=== PATIENT | male | born 1945 | race African-American/Black ===

== ENCOUNTER 2020-09-13 21:38 | Observation (INO) | payer MEDICARE, OTHER, SELFPAY ==
--- NOTE | ~2020-09-13 | XR_ITS ---
EXAMINATION: XR abdomen/kub 1V DATE: 09/14/2020 08:28 INDICATION: Right ureteral stone. TECHNIQUE: A supine view of the abdomen was obtained. COMPARISON: CT abdomen and pelvis 09/14/2020 FINDINGS: There are no dilated loops of bowel. There is contrast in the bladder. There is a 6 x 7 mm stone in proximal right ureter. IMPRESSION: 1. 6 x 7 mm stone in proximal right ureter. Reviewed, dictated and finalized at location A.
--- NOTE | ~2020-09-13 | XR_ITS ---
EXAMINATION: XR abdomen/kub 1V EXAM DATE: 09/15/2020 10:06 INDICATION: Right ureteral stone position TECHNIQUE: Frontal projection(s) of the abdomen for interpretation. Comparison is made to prior exami nation from 09/14/2020. FINDINGS: There is 7 mm density projecting over the expected location of the right ureter proximally, unchanged. Moderate to large amount of bowel stool and gas. No small bowel obstruction. Some bony de generative changes. There is no organomegaly. IMPRESSION: Right proximal ureteral stone. Moderate to large colonic stool and gas. Reviewed, dictated and finalized at location A.
--- NOTE | ~2020-09-13 | CT_ITS ---
EXAMINATION: CT abdomen pelvis w con DATE: 09/14/2020 00:49 INDICATION: Abdominal pain TECHNIQUE: Computed tomography (CT) of the abdomen and pelvis was performed with 100 cc Omnipaque 350 intravenous contrast. Automated exposure control and iterative reconstruction technique were employe d. Exam dose: 926.46 mGy-cm total exam DLP. COMPARISON: None. FINDINGS: Normal heart size. No pericardial or pleural effusion. The lung bases are clear of consolid ation. Minimal bilateral gynecomastia. The liver, gallbladder, bile ducts, spleen, pancreas and pancreatic duct are unremarkable. Normal left adrenal gland. 13 mm probable right lateral limb adrenal adenoma. 7.2 x 6.1 x 9.2 mm proximal right ureteral calculus with mild right hydronephrosis. No renal mass lesion is noted on either side. No other urinary tract calculus. No left hydroureterone phrosis. There is moderate thickening of the wall urinary bladder and prostate enlargement. Normal caliber and mild calcification of the abdominal aorta. No intraperitoneal or retroperitoneal o r pelvic mass lesion or adenopathy or ascites. There is thickening of the wall of the antrum of the stomach and first portion of the duodenum, raisi ng possibility of gastritis/duodenitis. Normal appendix is situated at the proximal aspect of a small right inguinal hernia. No bowel obstruc tion, bowel wall thickening, pneumatosis or intraperitoneal free air is detected. Prominent Schmorl's nodes at L4 and L5. Severe degenerative disc disease at L5-S1. Osteopenia. IMPRESSION: Approximately 9 mm proximal right ureteral calculus with mild right hydronephrosis Thickening of the wall of the gastric antrum and proximal duodenum, raising possibility of gastritis/ duodenitis Reviewed, dictated and finalized at Location A. Reviewed, dictated and finalized at location A. IMPRESSION: Approximately 9 mm proximal right ureteral calculus with mild righ t hydronephrosis Thickening of the wall of the gastric antrum and proximal duodenum, raising pos sibility of gastritis/duodenitis
[2020-09-13 22:11] VITALS: BP 99/61; PULSE 78; RESP 20; TEMP 36.5; O2SAT 99
[2020-09-13 22:24] LABS: Basophils Percent Auto 0.3 % (0.2-1.2); Eosinophils Percent Auto 0.1 % (0-4.4); Hematocrit 42.7 % (42.0-52.0); Hemoglobin 14.6 g/dL (14.0-18.0); Immature Granulocyte Absolute 0.01 K/mm3 (0.00-0.031); Immature Granulocyte Percent A 0.1 % (0-0.5); Immature Platelet Fraction Pct 2.7 % (0.9-11.2); Lymphocytes Absolute Auto 0.97 K/mm3 (0.9-3.2); Lymphocytes Percent Auto 13.9 % (18.3-44.2); Mean Corpuscular HGB Conc 34.2 g/dl (32-36); Mean Corpuscular Hemoglobin 31.9 pg (26-34); Mean Corpuscular Volume 93.2 fl (80-100); Mean Platelet Volume 10.3 fl (7.4-10.4); Monocytes Absolute Auto 0.5 K/mm3 (0.1-0.6); Monocytes Percent Auto 7.4 % (2.6-8.5); Neutrophils Absolute Auto 5.5 K/mm3 (1.3-6.7); Neutrophils Percent Auto 78.2 % (45.5-73.1); Platelet Count Result 152 k/mm3 (150-375); Red Blood Count 4.58 M/mm3 (4.6-6.20); Red Cell Distribution Width 13.6 % (11.5-14.5)
[2020-09-13 22:31] LABS: Alanine Aminotransferase 23 U/L (4-50); Albumin Level 4.6 g/dL (3.5-5.1); Alkaline Phosphatase 161 U/L (38-126); Anion Gap 10 mmol/L (8-16); Aspartate Amino Transferase 32 U/L (17-59); Bilirubin,Total 0.9 mg/dL (0.2-1.3); Blood Urea Nitrogen 16 mg/dL (9-20); Calcium 9.6 mg/dL (8.4-10.2); Carbon Dioxide 22 mmol/L (22-30); Chloride 108 mmol/L (98-107); Estimated CRCL calculation 53 ml/min; Estimated Glomerular Filt Rate 54; Glucose 144 mg/dL (75-110); Lipase 54 U/L (23-300); Potassium 3.8 mmol/L (3.4-5.0); Sodium 140 mmol/L (137-145)
[2020-09-14] VITALS (9 sets, daily range): BP systolic 144–175; BP diastolic 82–99; PULSE 78–95; RESP 16–18; TEMP 36.1–36.7; O2SAT 97–100; BMI 26.7
[2020-09-14] MEDS: SODIUM CHLORIDE 0.9% IV 1,000 ML 150 ML IV CONT (01:11)
[2020-09-14] MEDS: MORPHINE SULFATE (*CRX) 4 MG/ML INJ IV PUSH ×2 (01:11→02:07)
[2020-09-14] MEDS: ONDANSETRON INJ 4 MG/2 ML VIAL IV PUSH (01:12)
[2020-09-14 01:13] LABS: Add Urine Microscopic? YES; Appearance Urine Cloudy (Clear); Bilirubin Urine Negative (Negative); Blood Urine 2+ (Negative); Color Urine Yellow (Yellow); Glucose Urine UA Negative (Negative); Ketones Urine 1+ mg/dL (Negative); Leukocyte Esterase Ur Negative LEU/UL (Negative); Mucus Urine Few /lpf; Nitrate Urine Negative (Negative); Protein Urine 1+ mg/dL (Negative); RBC Urine >75 /hpf (0-2); Specific Grav Ur 1.023 (1.001-1.035); Squamous Epithelial Cell Urine Rare /hpf (Few)
--- NOTE | 2020-09-14 01:33 | ED.ABDPAIN ---
HPI - Abdominal Pain General Chief Complaint: Abdominal Pain <Jonathan Lee MD - Last Filed: 09/14/20 01:47> Stated Complaint: abd/back pain, vomiting <Jonathan Lee MD - Last Filed: 09/14/20 01:47> Time Seen by Provider: 09/13/20 23:51 <Jonathan Lee MD - Last Filed: 09/14/20 01:47> Source: patient and family <Jonathan Lee MD - Last Filed: 09/14/20 01:47> Mode of arrival: ambulatory <MD Daniel Ndiaye Last Filed: 09/14/20 01:47> Limitations: no limitations <Jonathan Lee MD - Last Filed: 09/14/20 01:47> History of Present Illness HPI narrative: 74-year-old with a history of hypertension here with complaints of right lower back pain radiating into his lower abdomen since last few hours. Patient states that pain started soon after he ate supper. Denies any nausea, vomiting. However he reports he has some blood in the urine. Denies any previous history of any kidney stones or kidney infection. <Jonathan Lee MD - Last Filed: 09/14/20 01:47> MD elicited complaint: abdominal pain <Jonathan Lee MD - Last Filed: 09/14/20 01:47> Pertinent past history: none <Jonathan Lee MD - Last Filed: 09/14/20 01:47> Onset (ago): hour(s) (3) <Jonathan Lee MD - Last Filed: 09/14/20 01:47> Pain Consistency: constant <MD Daniel Ndiaye Last Filed: 09/14/20 01:47> Location: R flank <MD Daniel Ndiaye Last Filed: 09/14/20 01:47> Severity: moderate <MD Daniel Ndiaye Last Filed: 09/14/20 01:47> Quality: aching <MD Daniel Ndiaye Last Filed: 09/14/20 01:47> Radiation: LLQ, RLQ and suprapubic <MD Daniel Ndiaye Last Filed: 09/14/20 01:47> Migration to: R flank <Jonathan Lee MD - Last Filed: 09/14/20 01:47> Exacerbating factors: nothing <Jonathan Lee MD - Last Filed: 09/14/20 01:47> Relieving factors: nothing <Jonathan Lee MD - Last Filed: 09/14/20 01:47> Related Data Allergies/Adverse Reactions: Allergies Allergy/AdvReac Type Severity Reaction Status Date / Time No Known Allergies Allergy Verified 09/14/20 00:04 <Jonathan Lee MD - Last Filed: 09/14/20 01:47> Review of Systems Review of Systems: All systems reviewed & are unremarkable except as noted in HPI and below <Jonathan Lee MD - Last Filed: 09/14/20 01:47> Constitutional: Constitutional: Reports no additional constitutional complaints <Jonathan Lee MD - Last Filed: 09/14/20 01:47> Eyes: Eyes: Reports no additional eye complaints <Jonathan Lee MD - Last Filed: 09/14/20 01:47> ENT: Reports system reviewed and no additional complaints, except as documented <Jonathan Lee MD - Last Filed: 09/14/20 01:47> Cardiovascular: Cardiovascular: Reports no additional cardiovascular complaints <Jonathan Lee MD - Last Filed: 09/14/20 01:47> Respiratory: Respiratory: Reports no additional respiratory complaints <Jonathan Lee MD - Last Filed: 09/14/20 01:47> Gastrointestinal: Gastrointestinal: Reports as per HPI <Jonathan Lee MD - Last Filed: 09/14/20 01:47> Genitourinary: Genitourinary: Reports hematuria and Reports flank pain (right) <Jonathan Lee MD - Last Filed: 09/14/20 01:47> PMFSH Surgical History Surgical History: Surgical History (Updated 09/14/20 @ 01:39 by Jonathan Lee MD) H/O foot surgery <Jonathan Lee MD - Last Filed: 09/14/20 01:47> Exam Narrative: Exam Narrative: GENERAL: Well-appearing, well-nourished, and in mild distress sec to pain. HEAD: Normocephalic, atraumatic. EYES: PERRLA and EOMI. NECK: Supple. CHEST: Clear to auscultation. No respiratory distress. HEART: Regular rate and rhythm. No murmur heard. Normal peripheral pulses. ABDOMEN: Soft, nontender, nondistended, normal active bowel sounds. EXTREMITIES: Normal range of motion. No edema. SKIN: Warm, dry, no rash. NEURO: No focal deficits. Alert and oriented x3. PSYCH: Normal mood and affect.
[2020-09-14] MEDS: SODIUM CHLORIDE 0.9% IV 1,000 ML 125 ML IV CONT ×3 (03:57→20:15)
[2020-09-14] MEDS: HYDROmorphone HCL INJ (*CRX) 1 MG/ML SYR 0.5 MG IV PUSH ×3 (04:01→20:12)
--- NOTE | 2020-09-14 06:49 | PM.IMHP ---
H&P: HPI History of Present Illness Date/Time: 09/14/20 06:49 Patient is a 74-year-old without prior history of urolithiasis, or other urological problems, presents to the ER with several week history intermittent, progressively severe right flank pain. Initially attributed this to a bad mattress because of the severity of pain presented for further evaluation. CT imaging demonstrates a 9 mm obstructing right proximal ureteral stone. He denies fevers chills gross hematuria or nausea vomiting Chief Complaint: Right flank pain Review of Systems Cardiovascular: Cardiovascular: Denies chest pain, Denies lightheadedness, Denies palpitations and Denies dyspnea Respiratory: Respiratory: Denies dyspnea Gastrointestinal: Gastrointestinal: Denies diarrhea, Denies nausea and Denies vomiting Genitourinary: Genitourinary: Denies hematuria and Denies dysuria Endocrine: Endocrine: Denies palpitations [facility] Surgical History Surgical History H/O foot surgery Family History Family History Sibling Hypertension Alzheimer disease Lung cancer Mother Heart attack Father Heart attack Parkinson disease Social History Social History Smoking status: Never smoker Alcohol intake: never Substance use: never Gender identity (if verbalized by the patient): Male Spiritual care concerns: No Meds Home Medications and Allergies Allergies Allergy/AdvReac Type Severity Reaction Status Date / Time No Known Allergies Allergy Verified 09/14/20 00:04 Vital Signs Vital Signs - 24 hr 09/13/20 22:11 09/14/20 00:05 09/14/20 01:15 Temperature 97.7 F 98.1 F Pulse Rate 78 78 80 Respiratory Rate 20 18 Blood Pressure 99/61 L 170/99 H 152/93 H Pulse Oximetry 99 100 09/14/20 01:20 09/14/20 01:29 09/14/20 03:35 Temperature 96.9 F L Pulse Rate 87 87 86 Respiratory Rate 18 18 Blood Pressure 155/95 H 155/95 H 175/94 H Pulse Oximetry 100 100 09/14/20 06:00 Temperature 97.6 F Pulse Rate 86 Respiratory Rate 16 Blood Pressure 146/90 H Pulse Oximetry 97 Exam Const: General: no acute distress Resp: Effort & Inspection: normal respiratory effort GI: Inspection: non-distended GI Palp: No abdominal tenderness and No Guarding due to palpation present (GI) Auscultation: normal bowel sounds H&P: Results Labs Labs: Short CBC 09/13/20 Range/Units 22:16 WBC 7.0 (4.5-10.0) K/mm3 Hgb 14.6 (14.0-18.0) g/dL Hct 42.7 (42.0-52.0) % Plt Count 152 (150-375) k/mm3 BMP 09/13/20 22:16 Sodium 140 Potassium 3.8 Chloride 108 H Carbon Dioxide 22 BUN 16 Creatinine 1.30 Glucose 144 H Calcium 9.6 Liver Function 09/13/20 Range/Units 22:16 Total Bilirubin 0.9 (0.2-1.3) mg/dL AST 32 (17-59) U/L ALT 23 (4-50) U/L Alkaline Phosphatase 161 H (38-126) U/L Albumin 4.6 (3.5-5.1) g/dL Urine 09/14/20 Range/Units 00:08 Urine Color Yellow (Yellow) Urine Appearance Cloudy H (Clear) Urine pH 6.0 (5.0-9.0) Ur Specific [place] 1.023 (1.001-1.035) Urine Protein 1+ H (Negative) mg/dL Urine Glucose (UA) Negative (Negative) mg/dL Assessment and Plan Assessment and plan (1) Ureterolithiasis: Code(s): N20.1 - Calculus of ureter Status: Acute (2) HTN (hypertension), benign: Code(s): I10 - Essential (primary) hypertension Status: Acute Assessment and Plan: Options for his large right proximal ureteral stone include either cystoscopy with ureteral stent placement today and ESWL down the road or in situ ESWL tomorrow. He has elected for the latter. Aware of the risk of this procedure including, but not limited to, adverse cardiopulmonary events, failure to fracture the stone with ongoing pain, injury to his right kidney. I
[2020-09-14] MEDS: TAMSULOSIN HCL 0.4 MG CAPSULE PO (09:22)
[2020-09-15] MEDS: HYDROmorphone HCL INJ (*CRX) 1 MG/ML SYR 0.5 MG IV PUSH (02:20)
[2020-09-15] MEDS: SODIUM CHLORIDE 0.9% IV 1,000 ML 125 ML IV CONT (02:22)
[2020-09-15 06:00] VITALS: BP 167/98; PULSE 93; RESP 20; TEMP 36.4; O2SAT 99
[2020-09-15 06:47] LABS: Basophils Percent Auto 0.1 % (0.2-1.2); Hematocrit 42.7 % (42.0-52.0); Hemoglobin 14.5 g/dL (14.0-18.0); Immature Granulocyte Absolute 0.05 K/mm3 (0.00-0.031); Immature Granulocyte Percent A 0.5 % (0-0.5); Lymphocytes Absolute Auto 1.51 K/mm3 (0.9-3.2); Lymphocytes Percent Auto 14.2 % (18.3-44.2); Mean Corpuscular Hemoglobin 31.7 pg (26-34); Mean Corpuscular Volume 93.2 fl (80-100); Mean Platelet Volume 10.9 fl (7.4-10.4); Monocytes Absolute Auto 0.9 K/mm3 (0.1-0.6); Monocytes Percent Auto 8.9 % (2.6-8.5); Neutrophils Absolute Auto 8.1 K/mm3 (1.3-6.7); Neutrophils Percent Auto 76.3 % (45.5-73.1); Platelet Count Result 128 k/mm3 (150-375); Red Blood Count 4.58 M/mm3 (4.6-6.20); Red Cell Distribution Width 13.4 % (11.5-14.5); White Blood Count 10.6 K/mm3 (4.5-10.0)
[2020-09-15 06:58] LABS: Anion Gap 8 mmol/L (8-16); Blood Urea Nitrogen 15 mg/dL (9-20); Calcium 8.9 mg/dL (8.4-10.2); Carbon Dioxide 23 mmol/L (22-30); Chloride 108 mmol/L (98-107); Estimated CRCL calculation 51 ml/min; Estimated Glomerular Filt Rate 60; Glucose 117 mg/dL (75-110); Potassium 3.9 mmol/L (3.4-5.0); Sodium 139 mmol/L (137-145)
--- NOTE | 2020-09-15 11:58 | P.DS_ITS ---
DS: Admitting Diagnosis Admitting Diagnosis Admitting Diagnosis: Right ureteral stone DS: Discharge Diagnosis Discharge Diagnosis (1) HTN (hypertension), benign: Code(s): I10 - Essential (primary) hypertension Status: Acute (2) Ureterolithiasis: Code(s): N20.1 - Calculus of ureter Status: Acute DS: Summary Hospital Course Hospital Course: This pleasant gentleman was admitted with right flank pain and imaging showing a 7 the 9 mm right proximal ureteral calculus. We initially planned to do in situ lithotripsy been on the morning of the anticipated procedure the equipment malfunction. He was discharged with plans to follow-up later that day in for lithotripsy an outpatient surgery center. He was afebrile and had intermittent mild pain throughout admission. Time Spent with Patient Time attestation: Total time spent providing and/or coordinating discharge services: Exam Const: General: no acute distress Resp: Effort & Inspection: normal respiratory effort GI: Inspection: non-distended GI Palp: No abdominal tenderness and No Guarding due to palpation present (GI) Auscultation: normal bowel sounds DS: Data Data Completed and Pending Labs on day of discharge: Labs from last 24 hours 09/15/20 09/15/20 05:49 05:49 WBC 10.6 H RBC 4.58 L Hgb 14.5 Hct 42.7 MCV 93.2 MCH 31.7 MCHC 34.0 RDW 13.4 Plt Count 128 L MPV 10.9 H Immature Gran % (Auto) 0.5 Neut % (Auto) 76.3 H Lymph % (Auto) 14.2 L [place] % (Auto) 8.9 H Eos % (Auto) 0.0 Baso % (Auto) 0.1 L Lymph # (Auto) 1.51 [place] # (Auto) 0.9 H Eos # (Auto) 0.0 Baso # (Auto) 0.0 Abs Immat Gran (auto) 0.05 H Absolute Neuts (auto) 8.1 H Absolute Nucleated RBC 0.0 Nucleated RBC % 0.0 Sodium 139 Potassium 3.9 Chloride 108 H Carbon Dioxide 23 Anion Gap 8 BUN 15 Creatinine 1.40 H Estim Creat Clear Calc 51 Estimated GFR 60 Glucose 117 H Calcium 8.9 Discharge Plan Discharge Attending physician on discharge: Aureliano Hamilton Discharging Clinician: Aureliano Hamilton Patient Disposition: Home, Self-Care Activity: as tolerated Diet: NPO Discharge Instructions: Procedure scheduled for 330pm today. Please arrive at 2pm for prep. Patient Instructions: Antibiotic Form Stand Alone Forms: General Discharge Information Follow-up/Referrals: Aureliano Hamilton MD [Physician] - Discharge Medications: New hydrocodone-acetaminophen 5-325 mg tablet 1 - 2 tablet PO Q6H PRN (Reason: pain) Qty: 30 RF: 0 sulfamethoxazole-trimethoprim 800-160 mg tablet 1 tablet PO Q12H Qty: 6 RF: 0 Continued amlodipine 10 mg tablet 10 mg PO DAILY RF: 0 Date of admission: 09/14/20 02:05 Primary Care Provider: Valente,Jone Taylor Admitting Provider: Aureliano Hamilton Attending physician on admission: Aureliano Hamilton Condition: Stable
== END 2020-09-15 10:30 | disposition home or self-care (01) ==
LOC: ANHED 09-14 02:09 → ANH3MEDSUR 09-14 02:33
PROVIDERS: Emergency Medicine; Admitting Provider Urology; Emergency Provider Family Medicine; PCP Family Medicine; Visit Provider Urology
DX: N13.2 Hydronephrosis with renal and ureteral calculous obstruction (principal); I10 Essential (primary) hypertension
CPT/HCPCS: 36415; 74018; 74177; 80048; 80053; 81001; 83690; 85025; 85055; 96361; 96374; 96375; 96376; 99285; A9270; G0378; J1170; J2270; J2405; J7030; Q9967

== ENCOUNTER 2020-10-03 09:28 | Outpatient (CLI) | payer MEDICARE, OTHER, SELFPAY ==
--- NOTE | ~2020-10-03 | CT_ITS ---
EXAMINATION: CT abdomen pelvis wo con DATE: 10/03/2020 09:58 INDICATION: Line pain TECHNIQUE: Computed tomography (CT) of the abdomen and pelvis was performed without intravenous contr ast. The dose-length product (DLP) was 227.54 mGy-cm. Automated exposure control and iterative recons truction technique were employed. COMPARISON: 09/14/2020 FINDINGS: The lung bases are clear. The heart size is normal. The liver, spleen, pancreas, gallbladde r, and left adrenal gland are normal. A 10 mm low-attenuation lesion of the right adrenal gland is co nsistent with an adenoma. The left kidney is unremarkable. There is a 4 mm stone of the distal right ureter. A 7 mm stone is present at the right ureterovesicular junction. There is moderate right hydro ureteronephrosis. No pathologically enlarged abdominal or pelvic lymph nodes are identified. There is no free intraperitoneal gas or evidence of bowel obstruction. There is mild wall thickening of the u rinary bladder. There is severe lumbar spondylosis. IMPRESSION: 1. 7 mm stone at the right ureterovesicular junction and 4 mm stone of the distal right ureter with r esulting moderate right hydroureteronephrosis. 2. Mild wall thickening of the urinary bladder which could reflect cystitis or chronic outlet obstruc tion. Reviewed, dictated and finalized at location A. IMPRESSION: 1. 7 mm stone at the right ureterovesicular junction and 4 mm stone of the dist al right ureter with resulting moderate right hydroureteronephrosis. 2. Mild wall thickening of the urinary bladder which could reflect cystitis or chronic outlet obstruction.
--- NOTE | ~2020-10-03 | XR_ITS ---
EXAMINATION: XR abdomen/kub 1V INDICATION: Right ureteral stone TECHNIQUE: Supine views of the abdomen were obtained on 2 radiographs. COMPARISON: 09/15/2020 FINDINGS: The previously described 7 mm stone of the proximal right ureter is now seen at the right u reterovesicular junction. Additional stones measuring up to 4 mm are seen in the expected location of the distal right ureter. The bowel gas pattern is normal. The lung bases are clear. There is severe lower lumbar spondylosis. IMPRESSION: 1. Stones at the right ureterovesicular junction and distal right ureter. Reviewed, dictated and finalized at location A.
== END 2020-10-03 09:29 | disposition home or self-care (01) ==
LOC: ANHIMG 09:34
PROVIDERS: PCP Family Medicine; Visit Provider Urology
DX: N20.1 Calculus of ureter (principal); N13.30 Unspecified hydronephrosis; N32.9 Bladder disorder, unspecified
CPT/HCPCS: 74018; 74176

== ENCOUNTER 2020-10-09 08:44 | Outpatient (CLI) | payer MEDICARE, OTHER, SELFPAY ==
--- NOTE | ~2020-10-09 | XR_ITS ---
EXAMINATION: XR abdomen/kub 1V INDICATION: Right ureteral stone TECHNIQUE: Supine views of the abdomen were obtained on 2 radiographs. COMPARISON: 10/03/2020 FINDINGS: Stones previously described at the right ureterovesicular junction and in the distal right ureter are no longer identified. No definite urolithiasis is seen. The bowel gas pattern is normal. T he visualized lung bases are clear. There is severe lower cervical spondylosis. IMPRESSION: 1. Findings consistent with interval treatment of the previously described stones at the right ureter ovesicular junction and distal right ureter. Reviewed, dictated and finalized at location B. IMPRESSION: 1. Findings consistent with interval treatment of the previously described ston es at the right ureterovesicular junction and distal right ureter.
== END 2020-10-09 08:45 | disposition home or self-care (01) ==
LOC: ANHIMG 08:48
PROVIDERS: PCP Family Medicine; Visit Provider Urology
DX: N20.1 Calculus of ureter (principal)
CPT/HCPCS: 74018

== ENCOUNTER 2024-07-29 02:11 | Day surgery (SDC) | payer MEDICARE, OTHER, SELFPAY ==
[2024-07-20 12:45] VITALS: BMI 28.8
--- OUTSIDE RECORDS SUMMARY | 2024-07-29 02:14 | XMS_ITS | Referral Summary ---
Author Organization [facility] Address [address] [place] [id number] Care Team Providers Care Medical Education Manager Name Role Phone Genaro Mckeon MD Unavailable [phone] Jone Victor DO Primary Care Provider + Encounters Date Type Department Care Team Description 05/28/2024 8:05 AM CDT Lab [facility] [address] [place] [id number] from Last 3 Months Allergies Active Allergy Reactions Criticality Noted Date Comments Losartan-Hydrochlorothiaz mamie Cough Low 08/25/2019 Mucus production caused patient to cough Medications aspirin 81 mg tablet Take 1 tablet (81 mg total) by mouth daily Active vitamin A 10,000 unit capsule Take 1 capsule (10,000 Units total) by mouth daily Active ascorbic acid (VITAMIN C) 500 mg tablet,chewable daily Acti ve cholecalciferol (VITAMIN D-3) 1,000 unit tablet Take 1 tablet (1,000 Units total) by mouth daily Active vitamin E 600 unit capsule Take 1 capsule (600 Units total) by mouth daily Active pyridoxine HCl, vitamin B6, (VITAMIN B-6 ORAL) Take by mouth daily Active tamsulosin (FLOMAX) 0.4 mg extended release capsule Take 1 capsule (0.4 mg total) by mouth daily 08/07/2023 Active amLODIPine (NORVASC) 10 mg tablet Take 1 tablet (10 mg total) by mouth daily 90 tablet 09/30/2023 Active Active Problems Problem Noted Date Diagnosed Date Cyst of skin and subcutaneous tissue 10/27/2023 Encounter for Medicare annual wellness exam 04/2021 Assessment & Plan (01/30/2023 9:09 AM PATIENT RELATIONS DIRECTOR): Completed today Assessment & Plan (01/02/2022 9:52 AM CDT): Chart reviewed Chronic pain of right knee 06/29/2021 Assessment & Plan (06/29/2021 8:49 AM CDT): He has had no injury to the right knee. Pain worse at night. Lab X ray Elevated LFTs 06/27/2020 Assessment & Plan (07/09/2022 8:21 AM CDT): Stable Recheck lft Assessment & Plan (06/27/2020 7:28 AM CDT): lft Hep c Thrombocytopenia 06/27/2020 Assessment & Plan (01/30/2023 9:09 AM PATIENT RELATIONS DIRECTOR): Has been stable. No bleeding or bruising. Update CBC. Assessment & Plan (07/09/2022 8:20 AM CDT): Stable Recheck a cbc Assessment & Plan (01/02/2022 9:53 AM CDT): stable Assessment & Plan (06/27/2020 7:28 AM CDT): Mild Recheck a cbc Full code status 12/27/2019 Assessment & Plan (12/27/2019 9:19 AM CDT): Discussed with patient approximately 20minutes End of life issues/Advanced Directives/Healthcare Surrogate. Discussed DNR. Encouraged to discuss further with family and consult assistant county attorney or complete [place] approved form, which I would be glad to assist them with completion. All questions answered. polst form filled out and signed Essential hypertension 12/19/2015 Assessment & Plan (01/30/2023 9:09 AM PATIENT RELATIONS DIRECTOR): Stable on norvasc 10 mg daily. Assessment & Plan (07/09/2022 8:21 AM CDT): Patient is well controlled. Continue current treatment. Assessment & Plan (06/29/2021 8:48 AM CDT): Patient is well controlled. Continue current treatment. Assessment & Plan (06/27/2020 7:27 AM CDT): Patient is well controlled. Continue current treatment. Benign prostatic hyperplasia without lower urinary tract symptoms 12/19/2015 Assessment & Plan (07/09/2022 8:21 AM CDT): Last PSA was 1.51 Sarcoidosis 12/19/2015 Assessment & Plan (07/09/2022 8:21 AM CDT): Stable Assessment & Plan (06/29/2021 8:48 AM CDT): No new orders Assessment & Plan (06/27/2020 7:27 AM CDT): Stable Resolved Problems Problem Noted Date Diagnosed Date Resolved Date Polyuria 01/02/2022 07/09/2022 Assessment & Plan (01/02/2022 9:57 AM CDT): New issue Order psa and ua Is urinating 4-5 times at night. His last PSA was normal. I will await the PSA and UA results. Urinates approximately 10 times during the day. Hematochezia 01/27/2019 12/27/2019 Cough 01/27/2019 12/27/2019 Other neutropenia (CMS/HCC) 08/12/2017 01/02/2022 Immunizations Immunization Administration Dates Next Due H1N1 Inj 02/13/2009 Hep A, Adult 03/31/2002 Hep B, Unspecified 03/31/2002 Influenza, Quad, Adjuvantate d, Intramuscular 11/12/2022 Influenza, Quadrivalent, Hig h Dose, Preservative Free, Intrr 11/22/2021,11/11/2020,11/13/2019 Influenza, Split 02/13/2009 Influenza, Trivalent, High D ose, Split, Preservative Free, Intramuscular 11/12/2018,10/31/2017,12/23/2016 Influenza, Unspecified 12/01/2020,2019,12/27/2009,12/01 Pfizer SARS-CoV-2 Monovalent Vaccination (12+ Yrs) PURPLE 04/18/2020,03/27/2020 Pneumococcal Conjugate PCV 13 01/02/2022 Pneumococcal Polysaccharide PPV23 12/28/2020 RSV Vaccine, Pref, Recombina nt, Subunit, Adjuvanted, PF, IM (Arexvy) 07/19/2023 Tdap 09/13/2009 ZOSTER Recombinant 07/09/2022(Deferred: Patient Refused) Social History Tobacco Use Types Packs/Day Years Used Date Smoking Tobacco: Never Smokeless Tobacco: Never Tobacco Cessation:Counseling Given: Not Answered Alcohol Use Standard Drinks/Week Comments Not Currently 0 (1 standard drink = 0.6 oz pur e alcohol) AUDIT-C Answer Date Recorded Q1: How often do you have a drink containing alcohol? Never 10/27/2023 Q2: How many drinks containi ng alcohol do you have on a typical day when you are drinking? Patient does not drink Q3: How often do you have si x or more drinks on one occasion? Never 10/27/2023 PHQ-2 Answer Date Recorded PHQ-2 Total Score (If total score is 3 or more points, staff should administer the PHQ-9) 0 01/30/2023 Sex and Gender Information Value Date Recorded Sex Assigned at Not on file Legal Sex Male 9:13 AM PATIENT RELATIONS DIRECTOR Gender Identity Male 08/14/2017 2:17 PM CDT Sexual Orientation Not on file Last Filed Vital Signs Vital Sign Reading Time Taken Comments Blood Pressure 132/82 10/27/2023 9:08 AM CDT Pulse 85 10/27/2023 9:08 AM CDT Temperature 36.5 C (97.7 F) 10/27/2023 9:08 AM CDT Respiratory Rate 20 10/27/2023 9:08 AM CDT Oxygen Saturation 98% 10/27/2023 9:08 AM CDT Inhaled Oxygen Concentration - - Weight 107 kg (235 lb 12.8 oz) 10/27/2023 9:08 A M CDT Height 188 cm (6' 2) 10/27/2023 9:08 AM CDT Body Mass Index 30.27 10/27/2023 9:08 AM CDT Plan of Treatment Not on file Procedures Procedure Name Priority Date/Time Associated Diagnosis Comments EGFR Routine 05/28/2024 8:14 AM CDT DIFFERENTIAL AUTO Routine 05/28/2024 8:1 4 AM CDT PSA SCREEN Routine 05/28/2024 8:14 AM CDT TSH Routine 05/28/2024 8:14 AM CDT HEPATIC FUNCTION PANEL Routine 05/28/2024 8:14 AM CDT LIPID PANEL Routine 05/28/2024 8:14 AM CDT CBC WITH AUTO DIFFERENTIAL Routine 05/28/2024 8:14 AM CDT BASIC METABOLIC PANEL Routine 05/28/2024 8:14 AM CDT HEPATITIS C ANTIBODY Routine 07/11/2020 9:19 AM CDT Essential hypertension Sarcoidosis Elevated LFTs Thrombocytopenia COLONOSCOPY Routine 12/30/2017 from Last 3 Months or Most Recently Relevant to Health Maintenance Results * eGFR (05/28/2024 8:14 AM CDT) eGFR 78 >=60 mL/min/1. 73 m2 Comment: Interpretive Data Reference Interval Normal >/= 90 mL/min/1.73m2 Mildly decreased* 60 - 89 mL/min/1.73m2 Mildly to moderately decreased 45 - 59 mL/min/1.73m2 Moderately to severely decreased 30 - 44 mL/min/1.73m2 Severely decreased 15 - 29 mL/min/1.73m2 Kidney Failure < 15 mL/min/1.73m2 *Relative to young adult level Estimated glomerular filtration rate is determined by the 2020 CKD-EPI equation recommended by the National Kidney Foundation (A Unifying Approach to GFR Estimation: Recommendations of the NKF-ASK Task Force on Reassessing the Inclusion of Race in Diagnosing Kidney Disease, JASN 2020). The CKD-EPI equation should not be used for patients with unstable renal function and has not been validated in children and those over 70. Current interpretive data was last reviewed 2021. Blood 05/28/2024 8:14 AM CDT 05/28/2024 8:26 AM CDT us Jone Victor DO LAB BLOOD ORDERABLES Fin al Result [place] [id number] [facility] Department [place] [address] * Differential, auto (05/28/2024 8:14 AM CDT) Neutrophil abs 1.6 1.5 - 6.5 K/cumm Imm gran abs 0.0 0.0 - 0.1 K/cumm [facility] Lymphocyte abs 2.1 0.8 - 3.3 K/cumm [facility] Monocyte abs 0.5 0.2 - 0.8 K/cumm [facility] Eosinophil abs 0.1 0.0 - 0.5 K/cumm [facility] Basophil abs 0.0 0.0 - 0.1 K/cumm [facility] Neutrophil pct 37.3 % [facility] Comment: Interpretive Data Percent cell count reference ranges are not reported, since discordance with absolute values may lead to misinterpretation of CBC data. Current Interpretive Data was last revised on 2017. Imm gran pct 0.2 % [facility] Comment: Interpretive Data Percent cell count reference ranges are not reported, since discordance with absolute values may lead to misinterpretation of CBC data. Current Interpretive Data was last revised on 2017. Lymphocyte pct 50.4 % [facility] Comment: Interpretive Data Percent cell count reference ranges are not reported, since discordance with absolute values may lead to misinterpretation of CBC data. Current Interpretive Data was last revised on 2017. Monocyte pct 10.7 % [facility] Comment: Interpretive Data Percent cell count reference ranges are not reported, since discordance with absolute values may lead to misinterpretation of CBC data. Current Interpretive Data was last revised on 2017. Eosinophil pct 1.2 % [facility] Comment: Interpretive Data Percent cell count reference ranges are not reported, since discordance with absolute values may lead to misinterpretation of CBC data. Current Interpretive Data was last revised on 2017. Basophil pct 0.2 % [facility] Comment: Interpretive Data Percent cell count reference ranges are not reported, since discordance with absolute values may lead to misinterpretation of CBC data. Current Interpretive Data was last revised on 2017. Blood 05/28/2024 8:14 AM CDT 05/28/2024 8:26 AM CDT Jone Victor LAB BLOOD ORDERABLES Fin al Result Performing Organization Address [facility] de Phone Number [address] [place] [address] * PSA screen (05/28/2024 8:14 AM CDT) PSA-Total 1.96 <=6.20 ng/mL Comment: Interpretive Data AGE SEX REFERENCE INTERVAL 0 minutes-150 years Female None 0 minutes-49 years Male None 50-59 years Male 0-3.90 60-69 years Male 0-5.40 70-79 years Male 0-6.20 80-150 years Male 0-6.20 The Antoinette PSA Total assay procedure was used. Results from different manufacturers or methods may not be comparable. Serial testing should be performed using the same method. Current interpretive data last revised 21. Blood 05/28/2024 8:14 AM CDT 05/28/2024 8:26 AM CDT Jone Victor LAB BLOOD ORDERABLES Fin al Result Performing Organization Address [facility] Co de Phone Number [address] [address] * (ABNORMAL) CBC with auto differential (05/28/2024 8:14 AM CDT) [facility] WBC 4.2 3.8 - 9.9 K/cumm Hgb 14.9 13.0 - 17.5 g/dL [facility] Hct 43.1 38.9 - 50.3 % [facility] Plt 133(L) 150 - 400 K/cumm [facility] MPV 10.3 9.1 - 12.3 fL [facility] RBC 4.61 4.30 - 5.80 M/cumm [facility] MCV 93.5 81.3 - 96.4 fL [facility] MCH 32.3 27.1 - 33.3 pg [facility] MCHC 34.6 32.3 - 35.7 g/dL [facility] RDW CV 13.9 11.1 - 14.9 % [facility] RDW SD 47.1 35.7 - 48.1 fL [facility] NRBC abs 0.00 0.00 - 0.01 K/cumm [facility] Blood 05/28/2024 8:14 AM CDT 05/28/2024 8:26 AM CDT Jone Victor DO LAB BLOOD ORDERABLES Fin al Result Performing Organization Address [facility] Co de Phone Number [address] [place] [address] * TSH (05/28/2024 8:14 AM CDT) [facility] Thyroid Stimulating Hormone 1.87 0.30 - 4.20 mcIUnit/mL Blood 05/28/2024 8:14 AM CDT 05/28/2024 8:26 AM CDT Jone Victor DO LAB BLOOD ORDERABLES Fin al Result Performing Organization Address [facility] Co de Phone Number [address] [place] [address] * (ABNORMAL) Hepatic function panel (05/28/2024 8:14 AM CDT) Bilirubin, total 0.6 0.1 - 1.2 mg/dL Bilirubin, direct 0.3 0.1 - 0.3 mg/dL [facility] Protein, pl 7.0 6.5 - 8.5 g/dL [facility] Albumin 4.0 3.5 - 5.0 g/dL [facility] Alk phos 165(H) 40 - 130 Units/L [facility] ALT 22 7 - 55 Units/L [facility] AST 28 10 - 50 Units/L [facility] Blood 05/28/2024 8:14 AM CDT 05/28/2024 8:26 AM CDT us Jone Victor DO LAB BLOOD ORDERABLES Fin al Result [facility] [address] [facility] Department [place] [address] * Lipid panel (05/28/2024 8:14 AM CDT) Pathologist [facility] Cholesterol 180 30 - 199 mg/dL Comment: Interpretive Data Ages < or = 19 years Acceptable: <170 mg/dL Borderline high: 170-199 mg/dL High: >or= 200 mg/dL Ages > or = 20 years Desirable: <200 mg/dL Borderline high: 200-239 mg/dL High: >or= 240 mg/dL Literature References: 1. Expert Panel on Integrated Guidelines for Cardiovascular Health and Risk Reduction in Children and Adolescents. Pediatrics 2011;128:S213 2. NCEP Expert Panel. Circulation 2004;110:227 Current Interpretive Data was last revised on 2017. Triglycerides 60 <=149 mg/dL [facility] Comment: Interpretive Data Ages < or = 9 years Acceptable: <75 mg/dL Borderline high: 75-99 mg/dL High: >or= 100 mg/dL Ages 10 to 20 years Acceptable: <90 mg/dL Borderline high: 90-129 mg/dL High: >or= 130 mg/dL Ages > or = 20 years Desirable: <150 mg/dL Borderline high: 150-199 mg/dL High: 200-499 mg/dL Very high: >or= 499 mg/dL Literature References: 1. Expert Panel on Integrated Guidelines for Cardiovascular Health and Risk Reduction in Children and Adolescents. Pediatrics 2011;128:S213 2. NCEP Expert Panel. Circulation 2004;110:227 Current Interpretive Data was last revised on 2017. HDL 47 >=40 mg/dL [facility] Comment: Interpretive Data Ages < or = 19 years Acceptable: >45 mg/dL Borderline low: 40-45 mg/dL Low: <40 mg/dL Ages > or = 20 years Desirable: >or= 60 mg/dL Low: <40 mg/dL Literature References: 1. Expert Panel on Integrated Guidelines for Cardiovascular Health and Risk Reduction in Children and Adolescents. Pediatrics 2011;128:S213 2. NCEP Expert Panel. Circulation 2004;110:227 Current Interpretive Data was last revised on 2017. LDL, calculated 122 <=129 mg/dL [facility] Comment: Interpretive Data Ages < or = 19 years Acceptable: <110 mg/dL Borderline high: 110-129 mg/dL High: >or= 130 mg/dL Ages > or = 20 years Optimal: <100 mg/dL Near optimal: 100-129 mg/dL Borderline high: 130-159 mg/dL High: >160 mg/dL Calculated using the Balaji LDL-C estimating equation. This equation was implemented on 2023. Prior to this date LDL-C was estimated using the Friedewald equation. Literature References: 1. Expert Panel on Integrated Guidelines for Cardiovascular Health and Risk Reduction in Children and Adolescents. Pediatrics 2011;128:S213 2. NCEP Expert Panel. Circulation 2004;110:227 3. Balaji Castillo et al. RENEE Cardiol. 2019July 01;5(5):540-548. doi: 10.1001/[email or web address].2020.0013 Current Interpretive Data was last revised on 2023. Non-HDL Cholesterol 133 mg/dL [facility] Comment: Interpretive Data Ages < or = 19 years Acceptable: <120 mg/dL Borderline high: 120-144 mg/dL High: >145 mg/dL Ages > or = 20 years When triglycerides are >200 mg/dL, Non-HDL cholesterol is a secondary target of therapy with treatment goals that are 30 mg/dL greater than the LDL cholesterol target. Literature References: 1. Expert Panel on Integrated Guidelines for Cardiovascular Health and Risk Reduction in Children and Adolescents. Pediatrics 2011;128:S213 2. NCEP Expert Panel. Circulation 2004;110:227 Current Interpretive Data was last revised on 2017. Chol/HDL ratio 4 [facility] Blood 05/28/2024 8:14 AM CDT 05/28/2024 8:26 AM CDT [facility] BLOOD ORDERABLES Fin al Result Performing Organization Address [facility] de Phone Number [address] [place] [address] * Basic metabolic panel (05/28/2024 8:14 AM CDT) Pathologist [facility] Sodium 140 135 - 145 mmol/L Potassium, pl 4.1 3.3 - 4.9 mmol/L [facility] Chloride 106 97 - 110 mmol/L [facility] CO2 25 22 - 32 mmol/L [facility] Anion gap 9 2 - 15 mmol/L [facility] BUN 13 6 - 25 mg/dL [facility] Creatinine 0.99 0.80 - 1.30 mg/dL [facility] Glucose 90 70 - 199 mg/dL [facility] Comment: Interpretive Data Fasting glucose >/= 126 mg/dl is diagnostic for diabetes. Fasting is defined as no caloric intake for at least 8 hours. Fasting glucose between 100 mg/dl to 125 mg/dl is diagnostic of prediabetes. In a patient with classic symptoms of hyperglycemia or hyperglycemic crisis, a random glucose >/= 200 mg/dl is diagnostic for diabetes. In the absence of unequivocal hyperglycemia, results should be confirmed by repeat testing. The classification and Diagnosis of Diabetes Diabetes Care 2021; 46: S19-S40. Current interpretive data was last revised 2022. Calcium 8.7 8.5 - 10.3 mg/dL [facility] Blood 05/28/2024 8:14 AM CDT 05/28/2024 8:26 AM CDT Jone Victor LAB BLOOD ORDERABLES Fin al Result Performing Organization Address [facility] Co de Phone Number [address] [place] [address] * Hepatitis C antibody (07/11/2020 9:19 AM CDT) Hep C Ab NONREACT NONREACTIVE [facility][NOTE 3] Comment: Siemens CentaurXP using FLAVIO (chemiluminescent immunoassay) technology. NONREACTIVE: Antibodies to Hepatitis C not detected. This does not exclude early acute Hepatitis C infection, possibility of exposure to Hepatitis C, antibodies below detection limit, or to lack of antibody reactivity to the antigen used in this assay. EQUIVOCAL: Antibodies to Hepatitis C may or may not be present. Sample to be confirmed by real-time PCR method. REACTIVE: Antibodies to Hepatitis C detected.Sample to be confirmed by real-time PCR method. Blood specimen (specimen) 07/11/2020 9:19 AM CDT 07/11/2020 9:39 AM CDT Narrative Resulting Agency Comment CLI Jone Victor DO LAB MICROBIOLOGY - GENER AL ORDERABLES Final Result [facility][NOTE 3] [address] [phone] * Colonoscopy (12/30/2017) Anatomical Region Laterality Modality Other Historical Provider ENDOSCOPY PROCEDURES Lauren l Result from Last 3 Months or Most Recently Relevant to Health Maintenance Insurance MEDICARE [facility] MEDICARE MEDICARE [facility] Advance Directives For more information, please contact: [phone] Documents on File Type Date Recorded Patient [employer] Assistant Manager Expl anation ADVANCE DIRECTIVE 12/27/2019 Care Teams Medical Education Manager Relationship Specialty Start Date End Date Jone Victor DO [address] [place] [address] PCP - General Family Medicine 03/02/24 Genaro Mckeon MD Medical Oncologist/Manager Pool Hematology and Oncology 02/04/18
--- OUTSIDE RECORDS SUMMARY | 2024-07-29 02:14 | XMS_ITS | Encounter Summary ---
Author Organization [facility] Facility Care Team Providers Care Customer Experience Intern Name Role Phone Ted Victor MD Primary Care Provider [phone] Genaro Mckeon MD Unavailable [phone] Jone Victor DO Primary Care Provider + Unknown, Notinfile Primary Care Provider Unavail able Terri Barksdale NP Primary Care Provider [phone] Jone Victor DO Primary Care Provider + Encounter Details Date Type Department Care Team (Latest Contact Info) Description 12/07/2012 Orders Only [facility] ProviderSue MD [address] [place], [place] [id number] Social History Tobacco Use Types Packs/Day Years Used Date Smoking Tobacco: Never Assessed Sex and Gender Information Value Date Recorded Sex Assigned at Not on file Legal Sex Male 9:13 AM INSURANCE CHECKER Gender Identity Male 08/14/2017 2:17 PM CDT Sexual Orientation Not on file documented as of this encounter Plan of Treatment Not on file documented as of this encounter Procedures Procedure Name Priority Date/Time Associated Diagnosis Comments COLONOSCOPY - SCAN 12/07/2012 12 :00 AM CDT documented in this encounter Results * COLONOSCOPY - SCAN (12/07/2012 12:00 AM CDT) Narrative 12/07/2012 12:00 AM CDT Ordered by an unspecified provider. us Historical Provider Final Res ult documented in this encounter Visit Diagnoses Not on filedocumented in this encounter Care Teams Customer Experience Intern Relationship Specialty Start Date End Date Ted Victor MD [address] [facility] [address] [place] [address] PCP - General 04/24/17 04/27/19 Jone Victor DO [address] [facility] [address] [place] [address] PCP - General 04/28/19 09/28/23 Unknown, Notinfile PCP - General 09/29/23 10/26/23 Terri Barksdale, TOM PCP - General Family Medicine 10/27/23 03/01/24 Jone Victor DO [address] [facility] [address] [place] [address] PCP - General Family Medicine 03/02/24 Genaro Mckeon MD [address] [facility] [address] [place] [address] Medical Oncologist/Recreation Teacher Hematology and Oncology 02/04/18 documented as of this encounter
--- OUTSIDE RECORDS SUMMARY | 2024-07-29 02:14 | XMS_ITS | Data Portability ---
Author Organization [facility] JENNIFER Serenity Martinez Address [address] [place] [address] Care Team Providers Care Table Maker Name Role Phone AVILA BURT Primary Care Provider Unavailabl e Assessment No assessment recorded. Plan of Treatment Reminders Order Date Submit Date Provider Last Modified By Organization Details Last Modified Time Details Appointments ANY 15 2024 08:00A M Avila Burt, DO Not available Not available Not available Lab hepati c functi on panel, serum 2024 025 ATHENAFAX [facility], [address] [place], [address], 07/12/2024 08:39:30 CBC w/ auto diff 2023 024 [email or web address] [facility] Fax, [address], [address], 01/15/2024 18:13:47 amylas e, serum or plasma 2023 024 [email or web address] [facility] Fax, [address] [place], [address], 01/27/2024 11:51:24 BMP, serum or plasma 2023 024 [email or web address] [facility] Fax, [address] [place], [address], 01/15/2024 18:13:47 hepati c functi on panel, serum 2023 024 [email or web address] [facility] Fax, [address] [place], [address], 01/27/2024 11:51:16 creati nine, serum or plasma 2023 024 [email or web address] [facility] Fax, [address] [place], [address], 01/27/2024 11:51:10 PSA, total, serum or plasma 2023 025 [facility]erred Op [facility] Fax, [address] [place], [address], 06/17/2024 10:04:32 lipid panel, serum 2023 025 [facility] Preferred Op [facility] Fax, [address] [place], [address], 05/28/2024 13:20:12 hepati c functi on panel, serum 2023 025 [facility] Fax, [address] [place], [address], 06/17/2024 10:04:32 TSH, serum, reflex free T4 2023 025 [facility] Fax, [address] [place], [address], 06/17/2024 10:04:32 BMP, serum or plasma 2023 025 [facility] Fax, [address] [place], [address], 05/28/2024 13:20:13 CBC w/ auto diff 2023 025 [facility] Fax, [address] [place], [address], 05/28/2024 11:32:04 Referral gastro entero logist referr al 2024 025 STANTON Jeffery MD, [address], [address], [place], [address], 06/01/2024 10:00:48 plasti c surgeo n referr al 2023 024 [facility] Sophia Fuller, [address] [facility], [place], [address], 2023 12:32:11 Procedures None record ed. Surgeries excisi on, sebace ous cyst (SURG) 2023 024 [facility] (Surgery Sched), [address] [place], [address], 12/05/2023 09:30:[address], abdome n + pelvis , w/ contra st [email or web address] Patient Access Centralized Scheduling, Centralized Scheduling, [address] [place], [address], 01/15/2024 18:13:47 Medication Orders None record ed. Patient TargetsNo targets recorded. Patient Instructions Encounter Date Encounter Id Patient Instructions Last Modified By Organization Details Last Modified Time 05/31/2024 [id number] A healthy lifestyle: care instructions [email or web address] Not available 05/31/2024 18:11:57 Reason for Referral Plastic Surgeon Referral for Furuncle of chest wall Referring Physician: Avila Burt, Family Medicine, Encounter Date: 10/30/2023 Dietitian Chief Referral for Screening for malignant neoplasm of colon Referring Physician: Avila Burt, Family Medicine, Encounter Date: 05/31/2024 Results Created Date Observation Date Name Description Value Unit Range Abnormal Flag Note LastModifiedBy Organization Detail LastModifiedTime 01/15/20 24 01/15/2024 CT, abdom en + pelvi s, w/ contr ast No observ ation record ed. [facility] [place] (Neuroscience Radiology) [address] [place], [address], 01/23/2024 10:58:05 03/07/19 25 03/02/2024 US, liver No observ ation record ed. [address] , [place], [address], 03/10/2024 11:32:16 Result Notes None recorded. Problems Name Problem SNOMED Code Status Onset Date Resolution Date Notes Provider Name and Address Organization Details Recorded Time Adult health examination Active 2023 Avila Burt DO Attn: Accountin jordan,[address] [facility], [place], [address], [place] [facility] 4 20:53:15 Overweight 331924516 Active 2023 Avila Burt DO Attn: Accountin jordan,[address] [facility], [place], [address], [place] [facility] 4 12:32:49 Vitamin D deficiency 27219274 Active 2023 Avila Burt DO Attn: Accountin g,[address] [facility], [place], [address], [place] [facility] 4 12:32:50 Thrombocytopen ic disorder 150081415 Active 2023 Avila Burt DO Attn: Accountin g,[address] [facility], [place], [address], [place] [facility] 4 12:32:51 Sarcoidosis 36392456 Active 2023 Avila Burt DO Attn: Accountin g,[address] [facility], [place], [address], [place] [facility] 4 12:32:52 Essential hypertension 26115228 Active 2023 Avila Burt DO Attn: Accountin g,[address] [facility], [place], [address], [place] [facility] 4 12:32:54 Nocturia 043147559 Active 2023 Avila Burt DO Attn: John ortega,[address] [facility], [place], [address], [facility] - [facility] 4 12:34:04 Abdominal pain 29082206 Active 2023 Avila Burt DO Attn: John ortega,[address], [place], [address], [facility] - [facility] 4 11:51:38 Problem Notes None recorded. Procedures Surgical History Date Name Laterality Status Provider Name and Address Organization Details Recorded Time EXCISION, SEBACEOUS CYST (SURG) completed Sophia Fuller MD [address] [place], [address], [facility] - [facility] 12/15/2023 10:07:37 Imaging Results None recorded. Procedure Notes None recorded. Medical Equipment None Reported. Allergies Allergen ID Allergen Name Allergen Category Reaction Reaction Severity Criticality Documentation Date Start Date Code Code System Note Provider Name and Address Organization Details Recorded Time 17590409 losartan medicatio n cough Not available Not available 10/30/2023 30127 RxNorm Nenita Winslow RN null, [place] - [facility] 4 15:30:55 Medications Name Sig Start Date Stop Date Status Note LastModified by Organization Details LastModified Time tamsulosin 0.4 mg capsule TAKE 1 CAPSULE BY MOUTH EVERY DAY active Not Available Not Available No t Available amlodipine 10 mg tablet TAKE 1 TABLET BY MOUTH EVERY DAY active Not Available Not Available No t Available amoxicillin 875 mg-potassium clavulanate 125 mg tablet TAKE 1 TABLET BY MOUTH TWICE A DAY FOR 7 DAYS 01/14 completed Not Available Not Available Not Available Vitals Date Recorded Systolic blood pressure Diastolic blood pressure Provider Name and Address Organization Details Last Updated DateTime 05/31/2024 130 mm[Hg] 84 mm[Hg] Avila Burt DO Attn: Accounting,[address] [facility], [place], [address], [facility] 05/31/2024 17:28:33 Date Recorded Body height Body mass index (BMI) Body weight Provider Name and Address Organization Details Last Updated DateTime 05/31/2024 190.5 cm 29.4 kg/m2 896760.01 g Yuly San MA [facility] 05/31/2024 16:43:33 Date Recorded Systolic blood pressure Diastolic blood pressure Provider Name and Address Organization Details Last Updated DateTime 10/30/2023 124 mm[Hg] 84 mm[Hg] Avila Burt DO Attn: Accounting,[address] [place], [address], [facility] 10/30/2023 16:05:10 Date Recorded Body height Body mass index (BMI) Body weight Oxygen saturation Oxygen saturation in Arterial blood by Pulse oximetry Heart rate Provider Name and Address Organization Details Last Updated DateTime 4 190.5 cm 29.3 kg/m2 125571. 36 g 97 % 97 % 78 /min Nenita Winslow RN [facility] 15:30:02 Date Recorded Body height Body temperature Body mass index (BMI) Body weight Oxygen saturation Oxygen saturation in Arterial blood by Pulse oximetry Heart rate Systolic blood pressure Diastolic blood pressure Provider Name and Address Organization Details Last Updated DateTime 4 190.5 cm 98.6 [degF] 29 kg/m2 944001. 15 g 98 % 98 % 89 /min 110 mm[Hg] 77 mm[Hg] Kacey Liu MA [facility] 4 12:06:22 Date Recorded Body height Oxygen saturation Oxygen saturation in Arterial blood by Pulse oximetry Heart rate Respiratory rate Body temperature Body mass index (BMI) Body weight Systolic blood pressure Diastolic blood pressure Provider Name and Address Organization Details Last Updated DateTime 4 190.5 cm 97 % 97 % 91 /min 18 /min 97.6 [degF] 29.8 kg/m2 139508. 06 g 136 mm[Hg] 73 mm[Hg] Sydnie Davis MA [facility] 4 11:02:54 Date Recorded Systolic blood pressure Diastolic blood pressure Provider Name and Address Organization Details Last Updated DateTime 01/15/2024 132 mm[Hg] 82 mm[Hg] Avila Burt DO Attn: Accounting,[address] [place], [address], [facility] 01/15/2024 11:54:38 Date Recorded Body height Body mass index (BMI) Body weight Provider Name and Address Organization Details Last Updated DateTime 01/15/2024 190.5 cm 28.9 kg/m2 870411.99 g Yuly San MA [facility] 01/15/2024 11:20:25 Social History Question Answer Notes LastModified by Organizat ion Details LastModified Time Tobacco Smoking Status Never Smoker Yuly San MA null, [facility] 07/15/2023 12:03:42 What Is Your Level Of Caffeine Consumption? Occasional Information not available 07/15/2023 What Was The Date Of Your Most Recent Tobacco Screening? 05/31/2024 Information not available 05/31/2024 Has Tobacco Cessation Counseling Been Provided? No Information not available 07/15/2023 Sex: Unknown Functional Status Question Answer Note LastModified by Organizat ion Details LastModified Time Do you use any illicit or recreational drugs? No Information not available 07/15/2023 Do you or have you ever used any other forms of tobacco or nicotine? No Information not available 07/15/2023 What is your level of alcohol consumption? None Information not available 07/15/2023 Mental Status None recorded. Family History Nothing Reported. Medical History Condition Response Coronary Artery Disease N Other N Atrial Fibrillation N High Blood Pressure Y Thyroid Problems N Kidney or Bladder Problems N GI Problems N Depression N COPD N Blood Clots N Skin Problems N Eating Disorder N Anemia N Heart Attack (OR) N Diabetes N Anxiety Disorder N Muscle, Joint, or Bone Problems N Seizures/Epilepsy N Have you had a colonoscopy in the last 1 0 years? Y Arthritis N Acid Reflux (GERD) N Cancer N Stroke N Asthma N Allergies N Have you had a PSA blood test in the las t year? Y ADHD N Substance Abuse N High Cholesterol N Hepatitis N Liver Disease N Schizophrenia N Headaches N Osteoporosis N Heart Failure N Past Encounters Encounter ID Performer Location Encounter Start Date Encounter Closed Date Diagnosis/Indication Diagnosis SNOMED-CT Code Diagnosis ICD10 Code Diagnosis Note [id number] Avila Burt, DO [facility] [place] [address] [place] [address] 07/15/2023 11:51:53 07/15/2023 13:04:13 Adult health examination 161709806 Z00.00 chart reviewed Essential hypertension 34832809 I10 chronic conditiona t goalamlodi pine 5 mg daily Sarcoidosis 71978294 D86 .9 will reorder a cxrhas not seen pulmonolog y in years Thrombocyt openic disorder 422033718 D69.6 chronic conditiona tableremai ns with slightly low plt ct Vitamin D deficiency 347 40530 E55.9 chronic conditiona t goal Overweight 569317979 E66 .3 healthy dietweight losschroni c conditionn ot at goal Nocturia 397310267 R35.1 chronic conditionw ill add flomax .4 mg at hs [id number] Avila Burt, DO [facility] [address] [facility] [address] [place] [address] 10/30/2023 15:13:02 10/30/2023 16:34:15 Essential hypertension 63445672 I10 chronic conditiona t goalamlodi pine 5 mg daily Overweight 687870193 E66 .3 healthy dietweight losschroni c conditionn ot at goal Sarcoidosis 32852275 D86 .9 cxr is normalhas not seen pulmonolog y in years Vitamin D deficiency 347 60947 E55.9 chronic conditiona t goal Furuncle o f chest wall 80071975 L02.223 open lesionpust ular drainages/ p lancingred ressedrefe r to Dr. sophia Fuller Long-term current use of drug therapy 025828185 Z79.899 Screening for malignant neoplasm of prostate 975856750 Z12.5 [id number] Sophia Fuller MD [facility] [address] [place] [address] 11/18/2023 11:55:37 11/19/2023 10:36:38 Epidermoid cyst of skin 030740402 L72.0 discussed excision of the two chest cysts with patient in layman's terms under local anesthesia . Discussed with the patient the surgery, risks, alternativ es and likely outcomes and limitation s of surgery and the patient understand s and would like to proceed. [id number] Sophia Fuller MD [facility] [address] [place] [address] 12/16/2023 10:51:27 12/17/2023 07:29:04 Postoperative visit 189752475 Z48.89 sutures removed without difficulty , wound is healing well, no signs of infection, discussed further wound care with patient layman's terms, we will see patient back on a p.r.n. basis [id number] Avila Strong'Neill, DO [facility] [place] [facility] [address] [facility] [address] [place] [address] 01/15/2024 11:15:39 01/19/2024 13:53:30 Abdominal pain 04145040 R10.9 improvedwi ll order labwill order a ct abdomen and pelvis c contrast if cr okabdomen sl discomfort with palpationn o G or R Essential hypertension 93943826 I10 chronic conditiona t goalamlodi pine 5 mg daily Sarcoidosis 51699665 D86 .9 cxr is normalhas not seen pulmonolog y in years Vitamin D deficiency 347 21951 E55.9 chronic conditiona t goal [id number] Avila Burt, DO [facility] [place] [facility] [address] [facility] [address] [place] [address] 05/31/2024 15:58:11 06/01/2024 13:26:23 Essential hypertension 80060339 I10 chronic conditiona t goalamlodi pine 5 mg daily Sarcoidosis 86833090 D86 .9 cxr is normalhas not seen pulmonolog y in years Thrombocyt openic disorder 772715657 D69.6 chronic conditions tableremai ns with slightly low plt ct Overweight 753006530 E66 .3 healthy dietweight losschroni c conditionn ot at goal Liver enzy mes level above reference range 916593799 R74.8 alk phos 165will recheck lab 6 weeks Screening for malignant neoplasm of colon 269847543 Z12.11 Health Concerns Section Related Observation LastModified by Organization Detai ls LastModified Time None Recorded Concern Status LastModified by Organization Details LastModified Time None Recorded Advance Directives Directive None Recorded Payers Encounter Date Sequence Insurance Name Policy Number Policy Schwarz Covered Member ID Schwarz Member ID Guarantor Name 10/30/2023 1 [place] Bobo Luke [id number] 1 Bobo Luke 10/30/2023 2 [employer] (MEDICARE SUPPLEMENT) Bobo Luke [id number] Bobo Luke 11/18/2023 1 [place] Bobo Luke [id number] 1 Bobo Luke 11/18/2023 2 [employer] [place] (MEDICARE SUPPLEMENT) Bobo Agudelo Dozier [id number] Bobo Dingzier 12/16/2023 1 [place] Bobo Luke [id number] 1 Bobo Luke 12/16/2023 2 [employer] [place] (MEDICARE SUPPLEMENT) Bobo Agudelo Dozier [id number] Bobo Dingzier 01/15/2024 1 [place] Bobo Luke [id number] 1 Bobo Luke 01/15/2024 2 [employer] [place] (MEDICARE SUPPLEMENT) Bobo Dingzier [id number] Bobo Dingzier 05/31/2024 1 [place] Bobo Luke [id number] 1 Bobo Luek 05/31/2024 2 [employer] (MEDICARE SUPPLEMENT) Bobo Dingzier [id number] Bobo Dingzier Notes Date Note Type Note Provider Name and Address Organization Details Recorded Time 10/30/2023 text/html routine visithad a recent alisha of a boil Avila Burt DO Attn: Accounting,[address] [place], [address], [facility] 10/30/2023 19:59:44 11/18/2023 text/html 78 y/o male with two right chest masses. The masses have drained and become inflamed and caused problems. Patient denies any fever or chills or night sweats or weight loss Sophia uFller MD [address] [place], [address], [facility] 11/18/2023 12:15:52 12/16/2023 text/html patient has foll ow-up excision of a chest and back lesion. Patient is doing well not having problems postoperatively Sophia Fuller MD [address] [place], [address], [place] [facility] 12/16/2023 11:22:53 01/15/2024 text/html [facility] some pig tail and feetdevelop[ed abdominal painhad diarrheaalso some constipationBM 4 x day for a week Avila Burt DO Attn: Accounting,[address] [facility], [place], [address], [place] [facility] 01/15/2024 19:28:38 05/31/2024 text/html routine follow updoing wellappetite normalbowels okurination ok Avila Burt DO Attn: Accounting,[address] [facility], [place], [address], [place] [facility] 05/31/2024 18:39:29
--- OUTSIDE RECORDS SUMMARY | 2024-07-29 02:14 | XMS_ITS | Clinical Summary ---
Author Organization 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 Gender Identity Not on file Sexual Orientation Not on file Plan of Treatment Health Maintenance Due Date Last Done Comments Hepatitis C Virus (HCV) Screening 1945 TdaP Immunization 1945 Pneumococcal Immunization (50+ years) (1 of 1 - PCV) 11/18/1995 Zoster Immunization (1 of 2) 11/18/1995 Respiratory Syncytial Virus (RSV) Immunization (Adult) (1 - 1-dose 75+ series) 2020 Influenza Immunization (#1) 11/02/202311/01, 11/12/2018, 10/31/2017, Additional history exists SARS-COV-2 Immunization ( season) 2023 Hepatitis B Immunization Aged Out No longer eligible based on patient's age to complete this topic Meningococcal Immunization (ACWY) Aged Out No longer eligible based on patient's age to complete this topic Rotavirus Immunization Aged Out No lo nger eligible based on patient's age to complete this topic
--- OUTSIDE RECORDS SUMMARY | 2024-07-29 02:14 | XMS_ITS | Encounter Summary ---
Author Organization [facility] Care Team Providers Care Dog Food Dough Mixer Name Role Phone Ted Victor MD Primary Care Provider [phone] Genaro Mckeon MD Unavailable [phone] Jone Victor DO Primary Care Provider + Unknown, Notinfile Primary Care Provider Unavail able Terri Barksdale NP Primary Care Provider [phone] Jone Victor DO Primary Care Provider + Encounter Details Date Type Department Care Team (Latest Contact Info) Description 12/06/2014 Orders Only [facility]IN[facility] ProviderSue MD [address] [place] [address] Social History Tobacco Use Types Packs/Day Years Used Date Smoking Tobacco: Never Assessed Sex and Gender Information Value Date Recorded Sex Assigned at Not on file 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 us Historical Provider Final Res ult documented in this encounter Visit Diagnoses Not on filedocumented in this encounter Care Teams Dog Food Dough Mixer Relationship Specialty Start Date End Date Ted Victor MD [address] [facility] [address] [place] [address] PCP - General 04/24/17 04/27/19 Jone Victor DO [address] [facility] [place] [address] PCP - General 04/28/19 09/28/23 Unknown, Notinfile PCP - General 09/29/23 10/26/23 Terri Barksdale, TOM PCP - General Family Medicine 10/27/23 03/01/24 Jone Victor DO [address] [facility] [address] [place] [address] PCP - General Family Medicine 03/02/24 Genaro Mckeon MD [address] [facility] [address] [place] [address] Medical Oncologist/Traveling Sales Representative Hematology and Oncology 02/04/18 documented as of this encounter
--- OUTSIDE RECORDS SUMMARY | 2024-07-29 02:14 | XMS_ITS | Clinical Summary ---
Author Organization [facility] Address [address] [place] [id number] Care Team Providers Care Physical Education Aide Name Role Phone Genaro Mckeon MD Unavailable [phone] Jone Victor DO Primary Care Provider + Allergies Active Allergy Reactions Criticality Noted Date [...] 04/2021 Assessment & Plan (01/30/2023 9:09 AM RENOVATION PLANT SUPERVISOR): Completed today Assessment & Plan (01/02/2022 9:52 [...] 06/27/2020 Assessment & Plan (01/30/2023 9:09 AM RENOVATION PLANT SUPERVISOR): Has been stable. No bleeding or bruising. [...] to discuss further with family and consult associate attorney or complete [place] approved form, which I would be glad to assist them with completion. All questions answered. polst form filled out and signed Essential hypertension 12/19/2015 Assessment & Plan (01/30/2023 9:09 AM RENOVATION PLANT SUPERVISOR): Stable on norvasc 10 mg daily. Assessment [...] 01/27/2019 12/27/2019 Other neutropenia (CMS/HCC) 08/12/2017 01/02/2022 Encounters Date Type Department Care Team Description 05/28/2024 8:[address] [facility] [address] [place] [id number] from Last 3 Months Immunizations Immunization Administration Dates Next Due H1N1 [...] Tdap 09/13/2009 ZOSTER Recombinant 07/09/2022(Deferred: Patient Refused) Surgical History Surgery Date Site/Laterality Comments FOOT SURGERY Right EYE SURGERY Bilateral cataracts COLON SURGERY removed polyps KIDNEY STONE SURGERY 08/31/2020 - 09/30/2020 Medical History Medical History Date Comments Hypertension Kidney stone Family History Medical History Relation Name Comments Heart disease Father Heart disease Mother Diabetes Other Hypertension Other Cancer Sister Relation Name Status Comments Father Mother Other Sister Alive Social History Tobacco Use Types Packs/Day Years [...] on file Legal Sex Male 9:13 AM RENOVATION PLANT SUPERVISOR Gender Identity Male 08/14/2017 2:17 PM CDT Sexual Orientation Not on file Obstetrics History Last Filed Vital Signs Vital Sign Reading [...] 10/27/2023 9:08 AM CDT Plan of Treatment Health Maintenance Due Date Last Done Comments Zoster Vaccine (1 of 2) 11/18/1995 DTaP/Tdap/Td Vaccine (2 - Td or Tdap) 09/14/2019 09/13/2009 Covid-19 Vaccine (2023- 5 season) 2023 12/13/2022, 04/22/2022, 08/28/2021, Additional history exists Depression Screening 01/31/2024 01/30/2023, 01/02/2022, 12/28/2020, Additional history exists Fall Risk Assessment 01/31/2024 01/30/2023, 01/02/2022, 12/28/2020, Additional history exists Well Visit 65+ 01/31/2024 01/30/2023, 04/2021, 01/02/2022, Additional history exists Influenza Vaccine (Season Ended) 2024 11/12/2022, 11/22/2021, 12/01/2020, Additional history exists Hepatitis B Screening Completed 03/31/2002 Colon Cancer Screening-CT Colonography Discontinued 12/30/2017 Colon Cancer Screening-Colonoscopy Discontinued 12/30/2017 Colon Cancer Screening-DNA Stool Discontinued 12/31/19 18 Colon Cancer Screening-FIT Discontinued 12/30/2017 Colon Cancer Screening-FOBT Discontinued 12/30/2017 Colon Cancer Screening-Sigmoidoscopy Discontinued 12/30/2017 Colorectal Cancer Screening Discontinued Hepatitis C Screening Completed 07/11/2020 Pneumococcal vaccine 65+ Completed 01/02/2022, 12/02 Prostate Cancer Screening-PSA Discontinued , 01/30/2023, 01/02/2022, Additional history exists Procedures Procedure Name Priority Date/Time Associated Diagnosis [...] DO LAB BLOOD ORDERABLES Fin al Result [facility] [address] [facility] Department [place] [address] * Differential, auto (05/28/2024 8:14 AM CDT) Neutrophil abs 1.6 1.5 - 6.5 K/cumm Imm gran abs 0.0 0.0 - 0.1 K/cumm [facility] Lymphocyte abs 2.1 0.8 - 3.3 K/cumm [facility] Monocyte abs 0.5 0.2 - 0.8 K/cumm [facility] Eosinophil abs 0.1 0.0 - 0.5 K/cumm [facility] Basophil abs 0.0 0.0 - 0.1 K/cumm [facility] Neutrophil pct 37.3 % [facility] Comment: Interpretive Data Percent cell count reference ranges are not reported, since discordance with absolute values may lead to misinterpretation of CBC data. Current Interpretive Data was last revised on 2017. Imm gran pct 0.2 % [facility] Comment: Interpretive Data Percent cell count reference ranges are not reported, since discordance with absolute values may lead to misinterpretation of CBC data. Current Interpretive Data was last revised on 2017. Lymphocyte pct 50.4 % [facility] Comment: Interpretive Data Percent cell count reference ranges are not reported, since discordance with absolute values may lead to misinterpretation of CBC data. Current Interpretive Data was last revised on 2017. Monocyte pct 10.7 % [facility] Comment: Interpretive Data Percent cell count reference ranges are not reported, since discordance with absolute values may lead to misinterpretation of CBC data. Current Interpretive Data was last revised on 2017. Eosinophil pct 1.2 % [facility] Comment: Interpretive Data Percent cell count reference ranges are not reported, since discordance with absolute values may lead to misinterpretation of CBC data. Current Interpretive Data was last revised on 2017. Basophil pct 0.2 % [facility] Comment: Interpretive Data Percent cell count reference ranges are not reported, since discordance with absolute values may lead to misinterpretation of CBC data. Current Interpretive Data was last revised on 2017. Blood 05/28/2024 8:14 AM CDT 05/28/2024 8:26 AM CDT Jone Rayaill DO LAB BLOOD ORDERABLES Fin al Result Performing Organization Address [facility] Co de Phone Number [facility] [address] [place] [address] * PSA screen (05/28/2024 8:14 AM CDT) [...] ORDERABLES Fin al Result Performing Organization Address City/[facility]/ZIP Co de Phone Number [facility] [address] [facility] [address] * (ABNORMAL) CBC with auto differential (05/28/2024 8:14 AM CDT) WBC 4.2 3.8 - 9.9 K/cumm Hgb 14.9 13.0 - 17.5 g/dL [facility] Hct 43.1 38.9 - 50.3 % [facility] Plt 133(L) 150 - 400 K/cumm [facility] MPV 10.3 9.1 - 12.3 fL [facility] RBC 4.61 4.30 - 5.80 M/cumm [facility] MCV 93.5 81.3 - 96.4 fL [facility] MCH 32.3 27.1 - 33.3 pg [facility] MCHC 34.6 32.3 - 35.7 g/dL [facility] RDW CV 13.9 11.1 - 14.9 % [facility] RDW SD 47.1 35.7 - 48.1 fL [facility] NRBC abs 0.00 0.00 - 0.01 K/cumm [facility] Blood 05/28/2024 8:14 AM CDT 05/28/2024 8:26 AM CDT Jone Victor DO LAB BLOOD ORDERABLES Fin al Result Performing Organization Address [facility] Co de Phone Number [address] [place] [address] * TSH (05/28/2024 8:14 AM CDT) [facility] Thyroid Stimulating Hormone 1.87 0.30 - 4.20 mcIUnit/mL Blood 05/28/2024 8:14 AM CDT 05/28/2024 8:26 AM CDT Jone Victor DO LAB BLOOD ORDERABLES Fin al Result Performing Organization Address [facility] Co de Phone Number [address] [place] [address] * (ABNORMAL) Hepatic function panel (05/28/2024 8:14 AM CDT) Pathologist [facility] Bilirubin, total 0.6 0.1 - 1.2 mg/dL Bilirubin, direct 0.3 0.1 - 0.3 mg/dL [facility] Protein, pl 7.0 6.5 - 8.5 g/dL [facility] Albumin 4.0 3.5 - 5.0 g/dL [facility] Alk phos 165(H) 40 - 130 Units/L [facility] ALT 22 7 - 55 Units/L [facility] AST 28 10 - 50 Units/L [facility] Blood 05/28/2024 8:14 AM CDT 05/28/2024 8:26 AM CDT Jone Victor DO LAB BLOOD ORDERABLES Fin al Result [facility] [address] [facility] Department [place] [address] * Lipid panel (05/28/2024 8:14 AM CDT) Cholesterol 180 30 - 199 mg/dL Comment: [...] revised on 2017. Triglycerides 60 <=149 mg/dL [facility] Comment: Interpretive Data Ages < or = [...] on 2017. HDL 47 >=40 mg/dL [facility] Comment: Interpretive Data Ages < or = [...] 3. Balaji Castillo et al. RENEE Cardiol. 2020 July 01;5(5):540-548. doi: 10.1001/[email or web address] Current Interpretive Data was [...] last revised on 2017. Chol/HDL ratio 4 [facility] HILARIO Blood 05/28/2024 8:14 AM CDT 05/28/2024 8:26 AM CDT Jone Victor DO LAB BLOOD ORDERABLES Fin al Result [facility] [address] [facility] Department [place] [address] * Basic metabolic panel (05/28/2024 8:14 AM CDT) [facility] Sodium 140 135 - 145 mmol/L Potassium, pl 4.1 3.3 - 4.9 mmol/L [facility] Chloride 106 97 - 110 mmol/L [facility] CO2 25 22 - 32 mmol/L [facility] Anion gap 9 2 - 15 mmol/L [facility] BUN 13 6 - 25 mg/dL [facility] Creatinine 0.99 0.80 - 1.30 mg/dL [facility] Glucose 90 70 - 199 mg/dL [facility] Comment: Interpretive Data Fasting glucose >/= 126 [...] classification and Diagnosis of Diabetes Diabetes Care 202; 46: S19-S40. Current interpretive data was last revised 2022. Calcium 8.7 8.5 - 10.3 mg/dL [facility] Blood 05/28/2024 8:14 AM CDT 05/28/2024 8:26 AM CDT Jone Victor DO LAB BLOOD ORDERABLES Fin al Result [facility] [address] [facility] Department [place] [address] * Hepatitis C antibody (07/11/2020 9:19 AM CDT) [facility] Hep C Ab NONREACT NONREACTIVE [facility] Comment: Siemens CentaurXP using FLAVIO (chemiluminescent immunoassay) [...] MICROBIOLOGY - GENER AL ORDERABLES Final Result [facility] [address] [place] [address], [facility] [phone] * Colonoscopy (12/30/2017) Anatomical Region Laterality Modality Other Historical Provider ENDOSCOPY PROCEDURES Lauren kay Result from Last 3 Months or Most Recently Relevant to Health Maintenance Insurance MEDICARE [facility] MEDICARE MEDICARE [facility] Advance Directives For more information, please contact: [phone] Documents on File Type Date Recorded Patient Senior Ux Developer Expl anation ADVANCE DIRECTIVE 12/27/2019 Care Teams Physical Education Aide Relationship Specialty Start Date End Date Jone Victor DO [address] [place] [address] PCP - General Family Medicine 03/02/24 Genaro Mckeon MD Medical Oncologist/Nurse Consultant Hematology and Oncology 02/04/18
--- OUTSIDE RECORDS SUMMARY | 2024-07-29 02:14 | XMS_ITS | Encounter Summary ---
Author Organization [facility] Facility Care Team Providers Care Termite Control Representative Name Role Phone Ted Victor MD Primary Care Provider [phone] Genaro Mckeon MD Unavailable [phone] Jone Victor DO Primary Care Provider + Unknown, Notinfile Primary Care Provider Unavail able Terri Barksdale NP Primary Care Provider [phone] Jone Victor DO Primary Care Provider + Encounter Details Date Type Department Care Team (Latest Contact Info) Description 12/30/2017 Orders Only [facility] CLINCONV Provider, MD Sue [address] [place] [address] Social History Tobacco Use Types Packs/Day Years Used Date Smoking Tobacco: Never Smokeless Tobacco: Never Alcohol Use Standard Drinks/Week Comments No 0 (1 standard drink = 0.6 oz pur e alcohol) Sex and Gender Information Value Date Recorded Sex Assigned at Not on file 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 us Historical Provider Final Res ult documented in this encounter Visit Diagnoses Not on filedocumented in this encounter Care Teams Termite Control Representative Relationship Specialty Start Date End Date Ted Victor MD [address] [place] [address] PCP - General 04/24/17 04/27/19 Jone Victor DO [address] [place] [address] PCP - General 04/28/19 09/28/23 Unknown, Notinfile PCP - General 09/29/23 10/26/23 Terri Barksdale NP PCP - General Family Medicine 10/27/23 03/01/24 Jone Victor DO [address] [place] [address] [address] [place] [address] PCP - General Family Medicine 03/02/24 Genaro Mckeon MD [address] [place] [address] Medical Oncologist/Pipe Processor Hematology and Oncology 02/04/18 documented as of this encounter
[2024-07-29 13:02] VITALS: BP 143/83; PULSE 71; RESP 18; TEMP 36.3; O2SAT 100; BMI 28.4
--- NOTE | 2024-07-29 13:15 | WPDANESEPPF ---
Anes - Initial Pre Proc Eval Procedure: Operation Date: 07/29/24 14:30 Proposed Procedures p Screening Colonoscopy - Magdiel Espinosa MD Date/Time: 07/29/24 13:15 Surgeon: Magdiel Espinosa MD Pre Op Diagnosis: Screening Patient Data Age: 78 Gender: M Height: 1.91 m Weight: 103.1 kg Last Vital Signs Temp 97.3 F L 07/29/24 13:02 Pulse 71 07/29/24 13:02 Resp 18 07/29/24 13:02 BP 143/83 H 07/29/24 13:02 Pulse Ox 100 07/29/24 13:02 O2 Del Method Room Air 07/29/24 13:02 Allergies Allergy/AdvReac Type Severity Reaction Status Date / Time lisinopril AdvReac Mild Cough Verified 07/29/24 13:07 Home Medications ?Medication ?Instructions ?Recorded ?Confirmed ?Type amlodipine 10 mg tablet 10 mg PO DAILY 09/14/20 07/29/24 History aspirin 81 mg tablet 81 mg PO DAILY 07/20/24 07/29/24 History tamsulosin 0.4 mg capsule 0.4 mg PO Q24H 07/20/24 07/29/24 History Patient hx anesthesia problems: none Family hx anesthesia problems: none Results Review: All pre-operative results and documents have been reviewed as part of the pre-operative evaluation. [facility] Surgical History Surgical History H/O foot surgery Family History Family History Sibling Hypertension Alzheimer disease Lung cancer Mother Heart attack Father Heart attack Parkinson disease Social History Social History Smoking status: Never smoker Alcohol intake: never Substance use: never Substance use type: does not use Living arrangements: with family Gender identity (if verbalized by the patient): Male Spiritual care concerns: No Anes - Eval Final PreProcedure Day of Procedure 07/29/24 13:15 Patient weight: normal Heart: regular rate and rhythm Lungs: clear to auscultation Airway: Mallampati scale class II Neurological: alert and oriented Last oral intake: >/= 8 hours ASA classification: III Emergent: no Anesthetic plan: proceed Anesthesia type and monitoring: general GIVS and standard monitoring Results Review: All pre-operative results and documents have been reviewed as part of the pre-operative evaluation. Informed Consent: The patient's anesthetic plan and its attendant risks and benefits were discussed with the patient/family/POA. Questions were solicited and answers provided to the satisfaction of the patient/family/POA.
[2024-07-29] MEDS: LACTATED RINGERS 1,000 ML 150 ML IV CONT (13:25)
--- NOTE | 2024-07-29 13:25 | PM.IMHP ---
H&P: HPI History of Present Illness Date/Time: 07/29/24 13:25 Chief Complaint: History of colon polyps Narrative: The patient has a history of colonic polyps, the last colonoscopy was approximately 5 y Review of Systems Review of Systems: All systems reviewed & are unremarkable except as noted in HPI and below PMFSH Surgical History Surgical History H/O foot surgery Family History Family History Sibling Hypertension Alzheimer disease Lung cancer Mother Heart attack Father Heart attack Parkinson disease Social History Social History Smoking status: Never smoker Alcohol intake: never Substance use: never Substance use type: does not use Living arrangements: with family Gender identity (if verbalized by the patient): Male Spiritual care concerns: No Meds Home Medications and Allergies Home Medications ?Medication ?Instructions ?Recorded ?Confirmed ?Type amlodipine 10 mg tablet 10 mg PO DAILY 09/14/20 07/29/24 History aspirin 81 mg tablet 81 mg PO DAILY 07/20/24 07/29/24 History tamsulosin 0.4 mg capsule 0.4 mg PO Q24H 07/20/24 07/29/24 History Allergies Allergy/AdvReac Type Severity Reaction Status Date / Time lisinopril AdvReac Mild Cough Verified 07/29/24 13:07 Vital Signs Vital Signs - 24 hr 07/29/24 13:02 Temperature 97.3 F L Pulse Rate 71 Respiratory Rate 18 Blood Pressure 143/83 H Pulse Oximetry 100 Oxygen Delivery Room Air Exam Const: General: cooperative and healthy appearing Resp: Effort & Inspection: normal respiratory effort and able to speak in complete sentences Auscultation: clear to auscultation bilaterally Cardio: Rate: regular rate Rhythm: regular rhythm GI: Inspection: normal to inspection GI Palp: No No hepatosplenomegaly present Auscultation: normal bowel sounds Rectal Exam: deferred Skin: General skin exam: normal color Psych: Appearance: grossly normal Mental Status: mental status grossly normal Assessment and Plan Assessment and plan (1) History of colonic polyps: Code(s): Z86.0100 - Personal history of colon polyps, unspecified Status: Acute Assessment and Plan: The patient is deemed a good candidate for the procedure. Consent signed. Will proceed.
--- NOTE | 2024-07-29 14:10 | S_PTH ---
PATIENT: Bobo Luke LOC: [facility] U#:[id number] AGE/SX: 78/M ROOM: RE07/29/[address]: Magdiel Espinosa MD : 1945 BED: DIS: 07/29/2024 SPEC #: [id number] RECD: 07/30/24 09:02 STATUS: RAYMOND REQ #: [id number] ISABELLE: 07/29/24 14:[address]: Magdiel Espinosa DEPT: [facility] Surgical RECD BY: Holly Joshua ENTERED: 07/30/24 09:04 SP TYPE: Surgical OTHR DR: Jone VictorMD Tissues: A - Colon Polypectomy B - Colon Polypectomy Procedures: Hematoxylin and Eosin Stain Gross and Microscopic Level 4
[2024-07-29 14:11] VITALS: BP 115/80; PULSE 63; RESP 16; O2SAT 100
[2024-07-29 14:21] VITALS: BP 115/80; PULSE 64; RESP 20; O2SAT 99
[2024-07-29 14:31] VITALS: BP 150/99; PULSE 64; RESP 20; O2SAT 99
== END 2024-07-29 14:52 | disposition home or self-care (01) ==
PROVIDERS: PCP Family Medicine; Referring Provider Family Medicine; Visit Provider Internal Medicine Gastroenterology
PROC: 0DJD8ZZ Inspection of Lower Intestinal Tract, Via Natural or Artificial Opening Endoscopic (ICD-10-PCS; CPT 45378; principal; 2024-07-29 14:30)
DX: Z12.11 Encounter for screening for malignant neoplasm of colon (principal); D12.4 Benign neoplasm of descending colon; D12.0 Benign neoplasm of cecum; Z79.82 Long term (current) use of aspirin; Z98.890 Other specified postprocedural states; Z80.1 Family history of malignant neoplasm of trachea, bronchus and lung; Z82.49 Family history of ischemic heart disease and other diseases of the circulatory system
CPT/HCPCS: 45385; 88305; J2003; J2704; J7120

== ENCOUNTER 2024-10-12 09:58 | Outpatient (CLI) | payer MEDICARE, OTHER, SELFPAY ==
--- NOTE | ~2024-10-12 | XR_ITS ---
XR knee LT 3V 10/12/2024 10:37 Indication: Left knee pain Procedure: 3 views left knee Comparison: No prior studies for comparison. Findings: There is mild-moderate tricompartment osteoarthritis. Moderate joint effusion. No fracture, subluxation or dislocation. No foreign bodies. Impression: 1: Mild-moderate tricompartment osteoarthritis. 2: Moderate joint effusion. Reviewed, dictated and finalized at location A. Impression: 1: Mild-moderate tricompartment osteoarthritis. 2: Moderate joint effusion.
--- OUTSIDE RECORDS SUMMARY | 2024-10-12 10:39 | XMS_ITS | Clinical Summary ---
Author Organization [facility] Address [address] [place] [address] Care Team Providers Care Software Engineer Intern Name Role Phone Constance Lawson DO Primary Care Provider [phone] Social History Tobacco Use Types Packs/Day Years Used Date Smoking Tobacco: Never Assessed Sex and Gender Information Value Date Recorded Sex Assigned at Not on file Legal Sex Male 5:28 PM CDT Gender Identity Not on file Sexual Orientation Not on file Plan of Treatment Health Maintenance Due Date Last Done Comments Hepatitis C 11/18/1963 Zoster Vaccines (1 of 2) 11/18/1995 Annual Medicare Wellness Visit 2010 DTaP, Tdap and Td Vaccines (2 - Td or Tdap) 09/14/2019 09/13/2009 RSV Immunization or 60+ Years (1 - 1-dose 75+ series) 2020 COVID-19 Vaccine ( season) 2023 12/13/2022, 04/22/2022, 08/28/2021, Additional history exists Pneumococcal Vaccine: 50+ Years Completed 01/02/2022, 12/28/2020 Meningococcal B Vaccine Aged Out No l onger eligible based on patient's age to complete this topic Meningococcal Vaccine Aged Out No rae saeed eligible based on patient's age to complete this topic RSV Immunizations Under 20 Months Aged Out No longer eligible based on patient's age to complete this topic Insurance MEDICARE [facility] Care Teams Software Engineer Intern Relationship Specialty Start Date End Date Jone Nolasco DO [address] [place] [id number] PCP - General FAMILY PRACTICE 07/15/23
--- OUTSIDE RECORDS SUMMARY | 2024-10-12 10:39 | XMS_ITS | Encounter Summary ---
Author Organization [facility] Facility Care Team Providers Care Pipe Setter Name Role Phone Ted Victor MD Primary Care Provider [phone] Genaro Mckeon MD Unavailable [phone] Jone Victor DO Primary Care Provider + Unknown, Notinfile Primary Care Provider Unavail able Terri Mchugh NP Primary Care Provider [phone] Jone Victor DO Primary Care Provider + Encounter Details Date Type Department Care Team (Latest Contact Info) Description 12/06/2014 Orders Only [facility] CLINCONV ProviderSue MD [address] [place] [address] Social History Tobacco Use Types Packs/Day Years Used Date Smoking Tobacco: Never Assessed Sex and Gender Information Value Date Recorded Sex Assigned at Not on file 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 Gender Identity Male 08/14/2017 2:17 PM CDT [...] on filedocumented in this encounter Care Teams Pipe Setter Relationship Specialty Start Date End Date Ted Victor MD [address] [place] [address] PCP - General 04/24/17 04/27/19 Jone Victor DO [address] [place] [address] PCP - General 04/28/19 09/28/23 Unknown, Notinfile PCP - General 09/29/23 10/26/23 Terri Mchugh NP PCP - General Family Medicine 10/27/23 03/01/24 Jone Victor DO PCP - General Family Medicine 03/02/24 Genaro Mckeon MD [address] [place] [address] Medical Oncologist/Siding Installer Hematology and Oncology 02/04/18 documented as of this encounter
--- OUTSIDE RECORDS SUMMARY | 2024-10-12 10:39 | XMS_ITS | Clinical Summary ---
Author Organization [facility] Address [address] [place] [address] Care Team Providers Care Cushion Former Name Role Phone Unavailable Primary Care Provider Unavailabl e Social History Tobacco Use Types Packs/Day Years Used Date Smoking Tobacco: Never Assessed Sex and Gender Information Value Date Recorded Sex Assigned at Not on file Legal Sex Male 2:19 PM RETURN CLERK Gender Identity Not on file Sexual Orientation Not on file Plan of Treatment Health Maintenance Due Date Last Done Comments Hepatitis C Virus (HCV) Screening 1945 TdaP Immunization 1945 Pneumococcal Immunization (50+ years) (1 of 1 - PCV) 11/18/1995 Zoster Immunization (1 of 2) 11/18/1995 Respiratory Syncytial Virus (RSV) Immunization (Adult) (1 - 1-dose 75+ series) 2020 SARS-COV-2 Immunization ( - 2023- season) 2023 Influenza Immunization (#1) 11/01/202411/01, 11/12/2018, 10/31/2017, Additional history exists Hepatitis B Immunization Aged Out No longer eligible based on patient's age to complete this topic Human Papillomavirus (HPV) Immunization Aged Out No longer eligible based on patient's age to complete this topic Meningococcal Immunization (ACWY) Aged Out No longer eligible based on patient's age to complete this topic Rotavirus Immunization Aged Out No lo nger eligible based on patient's age to complete this topic
--- OUTSIDE RECORDS SUMMARY | 2024-10-12 10:39 | XMS_ITS | Encounter Summary ---
Author Organization [facility] Facility Care Team Providers Care Housing Property Manager Name Role Phone Ted Victor MD Primary Care Provider + [phone] Genaro Mckeon MD Unavailable [phone] Jone Victor DO Primary Care Provider + Unknown, Notinfile Primary Care Provider Unavail able Terri Mchugh NP Primary Care Provider + [phone] Jone Victor DO Primary Care Provider + Encounter Details Date Type Department Care Team (Latest Contact Info) Description 12/07/2012 Orders Only [facility] CLINCONV ProviderSue MD [address] [place] [address] Social History Tobacco Use Types Packs/Day Years Used Date Smoking Tobacco: Never Assessed Sex and Gender Information Value Date Recorded Sex Assigned at Not on file 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 Gender Identity Male 08/14/2017 2:17 PM CDT [...] on filedocumented in this encounter Care Teams Housing Property Manager Relationship Specialty Start Date End Date Ted Victor MD [address] [facility] [address] [place] [address] PCP - General 04/24/17 04/27/19 Jone Victor DO [address] [facility] [address] [place] [address] PCP - General 04/28/19 09/28/23 Unknown, Notinfile PCP - General 09/29/23 10/26/23 Terri Mchugh NP PCP - General Family Medicine 10/27/23 03/01/24 Jone Victor DO PCP - General Family Medicine 03/02/24 Genaro Mckeon MD [address] [facility] [address] [place] [address] Medical Oncologist/Mold Filler Hematology and Oncology 02/04/18 documented as of this encounter
--- OUTSIDE RECORDS SUMMARY | 2024-10-12 10:39 | XMS_ITS | Encounter Summary ---
Author Organization [facility] Facility Care Team Providers Care Trouble Locater Name Role Phone Ted Victor MD Primary Care Provider + [phone] Genaro Mckeon MD Unavailable [phone] Jone Victor DO Primary Care Provider + Unknown, Notinfile Primary Care Provider Unavail able Terri Mchugh NP Primary Care Provider + [phone] Jone Victor DO Primary Care Provider + Encounter Details Date Type Department Care Team (Latest Contact Info) Description 12/30/2017 Orders Only [facility] CLINCONV Provider, MD Sue [address] [place] [address] Social History Tobacco Use Types Packs/Day Years Used Date Smoking Tobacco: Never Smokeless Tobacco: Never Alcohol Use Standard Drinks/Week Comments No 0 (1 standard drink = 0.6 oz pur e alcohol) Sex and Gender Information Value Date Recorded Sex Assigned at Not on file 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 [address] [place] [address] PCP - General 04/24/17 04/27/19 Jone Victor DO [address] [facility] [address] [place] [address] PCP - General 04/28/19 09/28/23 Unknown, Notinfile PCP - General 09/29/23 10/26/23 Terri Mchugh NP PCP - General Family Medicine 10/27/23 03/01/24 Jone Victor DO PCP - General Family Medicine 03/02/24 Genaro Mckeon MD [address] [facility] [address] [place] [address] Medical Oncologist/Legislative Correspondent Hematology and Oncology 02/04/18 documented as of this encounter
--- OUTSIDE RECORDS SUMMARY | 2024-10-12 10:39 | XMS_ITS | Clinical Summary ---
Author Organization [facility] Address [address] [place] [address] Care Team Providers Care Elevating Grader Operator Name Role Phone Genaro Mckeon MD Unavailable [phone] Jone Victor DO Primary Care Provider [...] 04/2021 Assessment & Plan (01/30/2023 9:09 AM RAPID TRANSIT OPERATOR): Completed today Assessment & Plan (01/02/2022 9:52 [...] 06/27/2020 Assessment & Plan (01/30/2023 9:09 AM RAPID TRANSIT OPERATOR): Has been stable. No bleeding or bruising. [...] to discuss further with family and consult trial attorney or complete [place] approved form, which I would be glad to assist them with completion. All questions answered. polst form filled out and signed Essential hypertension 12/19/2015 Assessment & Plan (01/30/2023 9:09 AM RAPID TRANSIT OPERATOR): Stable on norvasc 10 mg daily. Assessment [...] 01/27/2019 12/27/2019 Cough 01/27/2019 12/27/2019 Other neutropenia ([facility]/HCC) 08/12/2017 01/02/2022 Immunizations Immunization Administration Dates Next [...] on file Legal Sex Male 9:13 AM RAPID TRANSIT OPERATOR Gender Identity Male 08/14/2017 2:17 PM [...] Td or Tdap) 09/14/2019 09/13/2009 Covid-19 Vaccine (2023-2 5 season) 2023 12/13/2022, 04/22/2022, 08/28/2021, Additional history exists Depression Screening 01/31/2024 01/30/2023, 01/02/2022, 12/28/2020, Additional history exists Fall Risk Assessment 01/31/2024 01/30/2023, 01/02/2022, 12/28/2020, Additional history exists Well Visit 65+ 01/31/2024 01/30/2023, 04/2021, 01/02/2022, Additional history exists Influenza Vaccine (#1) 2024 , 11/22/2021, 12/01/2020, Additional history exists Hepatitis B [...] Procedure Name Priority Date/Time Associated Diagnosis Comments PSA SCREEN Routine 05/28/2024 8:14 AM CDT HEPATITIS C ANTIBODY Routine 07/11/2020 9:19 AM CDT Essential hypertension Sarcoidosis Elevated LFTs Thrombocytopenia COLONOSCOPY Routine 12/30/2017 from Last 3 Months or Most Recently Relevant to Health Maintenance Results * PSA screen (05/28/2024 8:14 AM CDT) [...] Fin al Result [facility] [address] [facility] Department of Laboratories [place], [place] [id number] * Hepatitis C antibody (07/11/2020 9:19 AM CDT) Hep C Ab NONREACT NONREACTIVE [facility] Comment: Siemens [employer]aurXP using FLAVIO (chemiluminescent immunoassay) technology. NONREACTIVE: Antibodies [...] MICROBIOLOGY - GENER AL ORDERABLES Final Result [place] [id number] [place] [address], [facility] [phone] * Colonoscopy (12/30/2017) Anatomical Region Laterality Modality Other Historical Provider ENDOSCOPY PROCEDURES Lauren l Result from Last 3 Months or Most Recently Relevant to Health Maintenance Insurance MEDICARE [employer] [place] [facility] MEDICARE MEDICARE [facility] Advance Directives For more information, please contact: [phone] Documents on File Type Date Recorded Patient Instructor Industrial Design Expl anation ADVANCE DIRECTIVE 12/27/2019 Care Teams Elevating Grader Operator Relationship Specialty Start Date End Date Jone Victor DO PCP - General Family Medicine 03/02/24 Genaro Mckeon MD Medical Oncologist/System Operator Hematology and Oncology 02/04/18
[2024-10-12 11:16] LABS: Hematocrit 46.0 % (42.0-52.0); Hemoglobin 15.1 g/dL (14.0-18.0); Immature Granulocyte Percent A 0.3 % (0-0.5); Immature Platelet Fraction Pct 3.2 % (0.9-11.2); Lymphocytes Absolute Auto 1.56 K/mm3 (0.9-3.2); Mean Corpuscular HGB Conc 32.8 g/dl (32-36); Mean Corpuscular Hemoglobin 32.1 pg (26-34); Mean Corpuscular Volume 97.7 fl (80-100); Nucleated Red Blood Cells Absolute Auto 0.000 K/mm3 (0.0-0.012); Nucleated Red Blood Cells Perc 0.0 % (0.0-0.2); Platelet Count Result 136 k/mm3 (150-375); Red Blood Count 4.71 M/mm3 (4.6-6.20); White Blood Count 3.3 K/mm3 (4.5-10.0)
[2024-10-12 11:35] LABS: Anion Gap 5 mmol/L (4-12); Blood Urea Nitrogen 12 mg/dL (9-20); Calcium 9.4 mg/dL (8.4-10.2); Carbon Dioxide 29 mmol/L (22-30); Chloride 106 mmol/L (98-107); Estimated Glomerular Filt Rate > 60; Glucose 93 mg/dL (65-110); Potassium 4.6 mmol/L (3.4-5.0); Sodium 140 mmol/L (137-145); Uric Acid 4.2 mg/dL (3.5-8.5)
[2024-10-14 14:08] LABS: ANA by IFA Rfx Titer/Pattern Negative (.)
== END 2024-10-12 09:59 | disposition home or self-care (01) ==
PROVIDERS: PCP Family Medicine; Visit Provider Family Medicine
DX: M17.12 Unilateral primary osteoarthritis, left knee (principal); M25.462 Effusion, left knee
CPT/HCPCS: 36415; 73562; 80048; 84550; 85025; 85055; 85652; 86038; 86430

== ENCOUNTER 2024-11-12 09:13 | Outpatient (CLI) | payer MEDICARE, OTHER, SELFPAY ==
--- NOTE | 2024-11-12 09:30 | ECG_ITS ---
Test Date: 2024-11-12 09:38:35 Measurements Intervals Arnold Rate: 81 P: 41 SC: 174 QRS: 29 QRSD: 89 T: 40 QT: 367 QTc: 428 Interpretive Statements SINUS RHYTHM No previous ECG available for comparison Electronically Signed On 11-12-2024 15:38:30 CDT by Kush Hutchins M.D.
--- OUTSIDE RECORDS SUMMARY | 2024-11-12 09:39 | XMS_ITS | Encounter Summary ---
Author Organization [facility] Facility Care Team Providers Care Supervisor Feed Mill Name Role Phone Ted Victor MD Primary Care Provider + [phone] Genaro Mckeon MD Unavailable [phone] Jone Victor DO Primary Care Provider + Unknown, Notinfile Primary Care Provider Unavail able Terri Mchugh NP Primary Care Provider + [phone] Jone Victor DO Primary Care Provider + Encounter Details Date Type Department Care Team (Latest Contact Info) Description 12/06/2014 Orders Only [facility] CLINCONV ProviderSue MD [address] [place] [address] Social History Tobacco Use Types Packs/Day Years Used Date Smoking Tobacco: Never Assessed Sex and Gender Information Value Date Recorded Sex Assigned at Not on file 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 Gender Identity Male 08/14/2017 2:17 PM CDT [...] on filedocumented in this encounter Care Teams Supervisor Feed Mill Relationship Specialty Start Date End Date Ted Victor MD [address] [facility] [address] [place] [address] PCP - General 04/24/17 04/27/19 Jone Victor DO [address] [facility] [address] [place] [address] PCP - General 04/28/19 09/28/23 Unknown, Notinfile PCP - General 09/29/23 10/26/23 Terri Mchugh NP PCP - General Family Medicine 10/27/23 03/01/24 Jone Victor DO PCP - General Family Medicine 03/02/24 Genaro Mckeon MD [address] [facility] [address] [place] [address] Medical Oncologist/Stud Setter Hematology and Oncology 02/04/18 documented as of this encounter
--- OUTSIDE RECORDS SUMMARY | 2024-11-12 09:39 | XMS_ITS | Encounter Summary ---
Author Organization [facility] Facility Care Team Providers Care Inspector Scales Name Role Phone Ted Victor MD Primary Care Provider + [phone] Genaro Mckeon MD Unavailable [phone] Jone Victor DO Primary Care Provider + Unknown, Notinfile Primary Care Provider Unavail able Terri Mchugh NP Primary Care Provider + [phone] Jone Victor DO Primary Care Provider + Encounter Details Date Type Department Care Team (Latest Contact Info) Description 12/30/2017 Orders Only [facility] CLINCONV Provider, MD Sue [address] [place] [address] Social History Tobacco Use Types Packs/Day Years Used Date Smoking Tobacco: Never Smokeless Tobacco: Never Alcohol Use Standard Drinks/Week Comments No 0 (1 standard drink = 0.6 oz pur e alcohol) Sex and Gender Information Value Date Recorded Sex Assigned at Not on file 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 Gender Identity Male 08/14/2017 2:17 PM CDT [...] on filedocumented in this encounter Care Teams Inspector Scales Relationship Specialty Start Date End Date Ted Victor MD [address] [facility] [address] [place] [address] PCP - General 04/24/17 04/27/19 Jone Victor DO [address] [facility] [address] [place] [address] PCP - General 04/28/19 09/28/23 Unknown, Notinfile PCP - General 09/29/23 10/26/23 Terri Mchugh NP PCP - General Family Medicine 10/27/23 03/01/24 Jone Victor DO PCP - General Family Medicine 03/02/24 Genaro Mckeon MD [address] [facility] [address] [place] [address] Medical Oncologist/Fats And Oils Loader Hematology and Oncology 02/04/18 documented as of this encounter
--- OUTSIDE RECORDS SUMMARY | 2024-11-12 09:39 | XMS_ITS | Clinical Summary ---
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
--- OUTSIDE RECORDS SUMMARY | 2024-11-12 09:39 | XMS_ITS | Clinical Summary ---
Author Organization [facility] Address [address] [place] [address] Care Team Providers Care Chalk Extruding Machine Operator Name Role Phone Genaro Mckeon MD Unavailable [phone] Jone Victor DO Primary Care Provider [...] 04/2021 Assessment & Plan (01/30/2023 9:09 AM TECHNICAL SYSTEM ANALYST): Completed today Assessment & Plan (01/02/2022 9:52 [...] 06/27/2020 Assessment & Plan (01/30/2023 9:09 AM TECHNICAL SYSTEM ANALYST): Has been stable. No bleeding or bruising. [...] to discuss further with family and consult contract attorney or complete [place] approved form, which I would be glad to assist them with completion. All questions answered. polst form filled out and signed Essential hypertension 12/19/2015 Assessment & Plan (01/30/2023 9:09 AM TECHNICAL SYSTEM ANALYST): Stable on norvasc 10 mg daily. Assessment [...] 01/27/2019 12/27/2019 Cough 01/27/2019 12/27/2019 Other neutropenia ([facility]/HCC) 08/12/2017 01/02/2022 Immunizations Immunization Administration Dates [...] on file Legal Sex Male 9:13 AM TECHNICAL SYSTEM ANALYST Gender Identity Male 08/14/2017 2:17 PM CDT [...] (2 - Td or Tdap) 09/14/2019 09/13/2009 Depression Screening 01/31/2024 01/30/2023, 01/02/2022, 12/28/2020, Additional history exists Fall Risk Assessment 01/31/2024 01/30/2023, 01/02/2022, 12/28/2020, Additional history exists Well Visit 65+ 01/31/2024 01/30/2023, 04/2021, 01/02/2022, Additional history exists Covid-19 Vaccine (2024-2 6 season) 2024 12/13/2022, 04/22/2022, 08/28/2021, Additional history exists Influenza Vaccine (#1) 2024 [...] DO LAB BLOOD ORDERABLES Fin al Result [facility] [address] [facility] Department of Laboratories [place], [place] [id number] * Hepatitis C antibody (07/11/2020 9:19 AM CDT) Hep C Ab NONREACT NONREACTIVE [facility] Comment: Siemens [employer]aurXP using FLAVIO (chemiluminescent immunoassay) technology. NONREACTIVE: Antibodies [...] MICROBIOLOGY - GENER AL ORDERABLES Final Result [place] [address] [place] [address], [facility] [phone] * Colonoscopy (12/30/2017) Anatomical Region Laterality Modality Other Historical Provider ENDOSCOPY PROCEDURES Lauren l Result from Last 3 Months or Most Recently Relevant to Health Maintenance Insurance MEDICARE [employer] [place] [facility] MEDICARE MEDICARE [facility] Advance Directives For more information, please contact: [phone] Documents on File Type Date Recorded Patient Reverse Engineer Expl anation ADVANCE DIRECTIVE 12/27/2019 Care Teams Chalk Extruding Machine Operator Relationship Specialty Start Date End Date Jone Victor DO PCP - General Family Medicine 03/02/24 Genaro Mckeon MD Medical Oncologist/Processing Supervisor Hematology and Oncology 02/04/18
--- OUTSIDE RECORDS SUMMARY | 2024-11-12 09:39 | XMS_ITS | Encounter Summary ---
Author Organization [facility] Facility Care Team Providers Care Echo Vasc Tech Name Role Phone Ted Victor MD Primary Care Provider + [phone] Genaro Mckeon MD Unavailable [phone] Jone Victor DO Primary Care Provider + Unknown, Notinfile Primary Care Provider Unavail able Terri Mchugh NP Primary Care Provider + [phone] Jone Victor DO Primary Care Provider + Encounter Details Date Type Department Care Team (Latest Contact Info) Description 12/07/2012 Orders Only [facility] CLINCONV ProviderSue MD [address] [place] [address] Social History Tobacco Use Types Packs/Day Years Used Date Smoking Tobacco: Never Assessed Sex and Gender Information Value Date Recorded Sex Assigned at Not on file 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 Gender Identity Male 08/14/2017 2:17 PM CDT [...] on filedocumented in this encounter Care Teams Echo Vasc Tech Relationship Specialty Start Date End Date Ted Victor MD [address] [facility] [address] [place] [address] PCP - General 04/24/17 04/27/19 Jone Victor DO [address] [facility] [address] [place] [address] PCP - General 04/28/19 09/28/23 Unknown, Notinfile PCP - General 09/29/23 10/26/23 Terri Mchugh NP PCP - General Family Medicine 10/27/23 03/01/24 Jone Victor DO PCP - General Family Medicine 03/02/24 Genaro Mckeon MD [address] [facility] [address] [place] [address] Medical Oncologist/Preprint Analyst Hematology and Oncology 02/04/18 documented as of this encounter
[2024-11-12 10:57] LABS: Add Urine Microscopic? NO; Appearance Urine Clear (Clear); Glucose Urine UA Negative (Negative); Leukocyte Esterase Ur Negative LEU/UL (Negative); Nitrate Urine Negative (Negative); Specific Grav Ur 1.025 (1.001-1.035)
== END 2024-11-12 09:14 | disposition home or self-care (01) ==
PROVIDERS: PCP Family Medicine; Visit Provider Orthopaedic Surgery
DX: R53.83 Other fatigue (principal); I10 Essential (primary) hypertension
CPT/HCPCS: 81003; 93005

== ENCOUNTER 2024-12-10 16:41 | Outpatient (CLI) | payer MEDICARE, OTHER, SELFPAY ==
[2024-12-10 17:29] LABS: Hematocrit 41.9 % (42.0-52.0); Hemoglobin 14.3 g/dL (14.0-18.0); Immature Granulocyte Percent A 0.5 % (0-0.5); Immature Platelet Fraction Pct 2.2 % (0.9-11.2); Lymphocytes Absolute Auto 1.28 K/mm3 (0.9-3.2); Mean Corpuscular HGB Conc 34.1 g/dl (32-36); Mean Corpuscular Hemoglobin 32.4 pg (26-34); Mean Corpuscular Volume 94.8 fl (80-100); Nucleated Red Blood Cells Absolute Auto 0.000 K/mm3 (0.0-0.012); Nucleated Red Blood Cells Perc 0.0 % (0.0-0.2); Platelet Count Result 125 k/mm3 (150-375); Red Blood Count 4.42 M/mm3 (4.6-6.20); White Blood Count 4.1 K/mm3 (4.5-10.0)
[2024-12-10 17:46] LABS: INR 1.1; Prothrombin Time 14.0 Seconds (11.1-14.7)
[2024-12-10 17:47] LABS: Partial Thromboplastin Time 25.5 Seconds (22.3-36.8)
[2024-12-10 17:57] LABS: Anion Gap 8 mmol/L (4-12); Blood Urea Nitrogen 16 mg/dL (9-20); Calcium 9.6 mg/dL (8.4-10.2); Carbon Dioxide 28 mmol/L (22-30); Chloride 103 mmol/L (98-107); Estimated Glomerular Filt Rate > 60; Glucose 99 mg/dL (65-110); Potassium 4.2 mmol/L (3.4-5.0); Sodium 139 mmol/L (137-145); Uric Acid 4.4 mg/dL (3.5-8.5)
[2024-12-14 08:08] LABS: ANA by IFA Rfx Titer/Pattern Negative (.)
== END 2024-12-10 16:42 | disposition home or self-care (01) ==
PROVIDERS: PCP Family Medicine; Visit Provider Family Medicine
DX: M25.562 Pain in left knee (principal); D69.6 Thrombocytopenia, unspecified; I10 Essential (primary) hypertension
CPT/HCPCS: 36415; 80048; 84550; 85025; 85055; 85610; 85652; 85730; 86038; 86430

== ENCOUNTER 2024-12-29 13:07 | Outpatient (CLI) | payer MEDICARE, OTHER, SELFPAY ==
--- OUTSIDE RECORDS SUMMARY | 2024-12-29 14:26 | XMS_ITS | Clinical Summary ---
Author Organization 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
--- OUTSIDE RECORDS SUMMARY | 2024-12-29 14:26 | XMS_ITS | Encounter Summary ---
Author Organization [facility] Facility Care Team Providers Care Chief Of Anesthesiology Name Role Phone Ted Victor MD Primary Care Provider + [phone] Genaro Mckeon MD Unavailable [phone] Jone Victor DO Primary Care Provider + Unknown, Notinfile Primary Care Provider Unavail able Terri Mchugh NP Primary Care Provider + [phone] Jone Victor DO Primary Care Provider + Encounter Details Date Type Department Care Team (Latest Contact Info) Description 12/06/2014 Orders Only [facility] CLINCONV ProviderSue MD [address] [place] [address] Social History Tobacco Use Types Packs/Day Years Used Date Smoking Tobacco: Never Assessed Sex and Gender Information Value Date Recorded Sex Assigned at Not on file 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 Male 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 Gender Identity Male 08/14/2017 2:17 PM CDT [...] on filedocumented in this encounter Care Teams Chief Of Anesthesiology Relationship Specialty Start Date End Date Ted Victor MD [address] [facility] [address] [place] [address] PCP - General 04/24/17 04/27/19 Jone Victor DO [address] [facility] [address] [place] [address] PCP - General 04/28/19 09/28/23 Unknown, Notinfile PCP - General 09/29/23 10/26/23 Terri Mchugh NP PCP - General Family Medicine 10/27/23 03/01/24 Jone Victor DO PCP - General Family Medicine 03/02/24 Genaro Mckeon MD [address] [facility] [address] [place] [address] Medical Oncologist/Small Piece Cutter Hematology and Oncology 02/04/18 documented as of this encounter
--- OUTSIDE RECORDS SUMMARY | 2024-12-29 14:26 | XMS_ITS | Clinical Summary ---
Author Organization [facility] Address [address] [place] [address] Care Team Providers Care Sod Cutter Name Role Phone Genaro Mckeon MD Unavailable [phone] Jone Victor DO Primary Care Provider + Allergies Active Allergy Reactions Criticality Noted Date Comments Losartan-Hydrochlorothiaz mamei Cough Low 08/25/2019 Mucus production caused patient [...] 04/2021 Assessment & Plan (01/30/2023 9:09 AM DIRECTOR VIDEO): Completed today Assessment & Plan (01/02/2022 9:52 [...] 06/27/2020 Assessment & Plan (01/30/2023 9:09 AM DIRECTOR VIDEO): Has been stable. No bleeding or bruising. [...] to discuss further with family and consult levelman or complete [place] approved form, which I would be glad to assist them with completion. All questions answered. polst form filled out and signed Essential hypertension 12/19/2015 Assessment & Plan (01/30/2023 9:09 AM DIRECTOR VIDEO): Stable on norvasc 10 mg daily. Assessment [...] 01/27/2019 12/27/2019 Cough 01/27/2019 12/27/2019 Other neutropenia ([facility]/HCC) 08/12/2017 01/02/2022 Immunizations Immunization Administration Dates [...] on file Legal Sex Male 9:13 AM DIRECTOR VIDEO Gender Identity Male 08/14/2017 2:17 PM CDT [...] DO LAB BLOOD ORDERABLES Fin al Result [facility] [address] [facility] Department of Laboratories [place], [place] [id number] * Hepatitis C antibody (07/11/2020 9:19 AM CDT) Hep C Ab NONREACT NONREACTIVE [facility] Comment: Siemens Microvisk TechnologiesaurXP using FLAVIO (chemiluminescent immunoassay) technology. NONREACTIVE: [...] MICROBIOLOGY - GENER AL ORDERABLES Final Result [id number] [place] [address], [facility] [phone] * Colonoscopy (12/30/2017) Anatomical Region Laterality Modality Other Historical Provider ENDOSCOPY PROCEDURES Lauren l Result from Last 3 Months or Most Recently Relevant to Health Maintenance Insurance MEDICARE [employer] [place] MEDICARE MEDICARE [facility] Advance Directives For more information, please contact: [phone] Documents on File Type Date Recorded Patient Nurse Licensed Practical Expl anation ADVANCE DIRECTIVE 12/27/2019 Care Teams Sod Cutter Relationship Specialty Start Date End Date Jone Victor DO PCP - General Family Medicine 03/02/24 Genaro Mckeon MD Medical Oncologist/Printing Supervisor Hematology and Oncology 02/04/18
--- OUTSIDE RECORDS SUMMARY | 2024-12-29 14:26 | XMS_ITS | Encounter Summary ---
Author Organization [facility] Facility Care Team Providers Care Crew Director Name Role Phone Ted Victor MD Primary Care Provider + [phone] Genaro Mckeon MD Unavailable +[phone] Jone Victor DO Primary Care Provider + Unknown, Notinfile Primary Care Provider Unavail able Terri Mchugh NP Primary Care Provider + [phone] Jone Victor DO Primary Care Provider + Encounter Details Date Type Department Care Team (Latest Contact Info) Description 12/07/2012 Orders Only [facility] CLINCONV ProviderSue MD [address] [place] [address] Social History Tobacco Use Types Packs/Day Years Used Date Smoking Tobacco: Never Assessed Sex and Gender Information Value Date Recorded Sex Assigned at Not on file 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 Gender Identity Male 08/14/2017 2:17 PM CDT [...] on filedocumented in this encounter Care Teams Crew Director Relationship Specialty Start Date End Date Ted Victor MD [address] [facility] [address] [place] [address] PCP - General 04/24/17 04/27/19 Jone Victor DO [address] [facility] [address] [place] [address] PCP - General 04/28/19 09/28/23 Unknown, Notinfile PCP - General 09/29/23 10/26/23 Terri Mchugh NP PCP - General Family Medicine 10/27/23 03/01/24 Jone Victor DO PCP - General Family Medicine 03/02/24 Genaro Mckeon MD [address] [facility] [address] [place] [address] Medical Oncologist/Plant General Manager Hematology and Oncology 02/04/18 documented as of this encounter
--- OUTSIDE RECORDS SUMMARY | 2024-12-29 14:26 | XMS_ITS | Encounter Summary ---
Author Organization [facility] Facility Care Team Providers Care Pickle Water Pump Operator Name Role Phone Ted Victor MD Primary Care Provider + [phone] Genaro Mckeon MD Unavailable [phone] Jone Victor DO Primary Care Provider + Unknown, Notinfile Primary Care Provider Unavail able Terri Mchugh NP Primary Care Provider + [phone] Jone Victor DO Primary Care Provider + Encounter Details Date Type Department Care Team (Latest Contact Info) Description 12/30/2017 Orders Only [facility] CLINCONV Provider, MD Sue [address] [place] [address] Social History Tobacco Use Types Packs/Day Years Used Date Smoking Tobacco: Never Smokeless Tobacco: Never Alcohol Use Standard Drinks/Week Comments No 0 (1 standard drink = 0.6 oz pur e alcohol) Sex and Gender Information Value Date Recorded Sex Assigned at Not on file Legal Sex Male 9:13 AM 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 [address] [place] [address] PCP - General 04/24/17 04/27/19 Jone Victor DO [address] [facility] [address] [place] [address] PCP - General 04/28/19 09/28/23 Unknown, Notinfile PCP - General 09/29/23 10/26/23 Terri Mchugh NP PCP - General Family Medicine 10/27/23 03/01/24 Jone Victor DO PCP - General Family Medicine 03/02/24 Genaro Mckeon MD [address] [facility] [address] [place] [address] Medical Oncologist/Drafter (Cad) Electronic Hematology and Oncology 02/04/18 documented as of this encounter
--- OUTSIDE RECORDS SUMMARY | 2024-12-29 14:27 | XMS_ITS | Clinical Summary ---
Author Organization [facility] Address [address] [place] [address] Care Team Providers Care Deal Architect Name Role Phone Jone Nolasco DO Primary Care Provider [phone] Social History Tobacco Use Types Packs/Day Years [...] 75+ series) 2020 COVID-19 Vaccine ( season) 2024 12/13/2022, 04/22/2022, 08/28/2021, Additional history exists Influenza Adult (#1) 2024 12/01/2020, 12/02/2019, 11/12/2018, Additional history exists Hepatitis A Vaccines Aged Out 03/31/2002 No long er eligible based on patient's age to complete this topic Pneumococcal Vaccine: 50+ Years Completed 01/02/2022, 12/28/2020 Meningococcal B Vaccine Aged Out No l onger eligible based on patient's age to complete this topic Meningococcal Vaccine Aged Out No rae saeed eligible based on patient's age to complete this topic RSV Immunizations Under 20 Months Aged Out No longer eligible based on patient's age to complete this topic Insurance MEDICARE [facility] Care Teams Deal Architect Relationship Specialty Start Date End Date Jone Nolasco DO [address] [place] [id number] PCP - General FAMILY PRACTICE 07/15/23
[2024-12-29 15:16] LABS: Hematocrit 42.3 % (42.0-52.0); Hemoglobin 14.5 g/dL (14.0-18.0); Immature Granulocyte Percent A 0.2 % (0-0.5); Immature Platelet Fraction Pct 4.1 % (0.9-11.2); Lymphocytes Absolute Auto 2.35 K/mm3 (0.9-3.2); Mean Corpuscular HGB Conc 34.3 g/dl (32-36); Mean Corpuscular Hemoglobin 32.9 pg (26-34); Mean Corpuscular Volume 95.9 fl (80-100); Nucleated Red Blood Cells Absolute Auto 0.000 K/mm3 (0.0-0.012); Nucleated Red Blood Cells Perc 0.0 % (0.0-0.2); Platelet Count Result 127 k/mm3 (150-375); Red Blood Count 4.41 M/mm3 (4.6-6.20); White Blood Count 4.4 K/mm3 (4.5-10.0)
[2024-12-29 15:22] LABS: Hemoglobin A1C 4.9 % (<5.7)
[2024-12-29 15:31] LABS: Albumin Level 4.5 g/dL (3.5-5.1)
[2024-12-29 16:26] LABS: MRSA (PCR) NOT DETECTED (NOT DETECTE)
== END 2024-12-29 13:08 | disposition home or self-care (01) ==
PROVIDERS: PCP Internal Medicine Geriatric Medicine; Visit Provider Orthopaedic Surgery
DX: M17.12 Unilateral primary osteoarthritis, left knee (principal); Z01.818 Encounter for other preprocedural examination
CPT/HCPCS: 80307; 82040; 83036; 85025; 85055; 86850; 86900; 86901; 87641

== ENCOUNTER 2025-01-05 14:41 | Outpatient (CLI) | payer MEDICARE, OTHER, SELFPAY ==
[2025-01-05 15:01] LABS: Hematocrit 42.6 % (42.0-52.0); Hemoglobin 14.4 g/dL (14.0-18.0); Immature Granulocyte Percent A 0.3 % (0-0.5); Immature Platelet Fraction Pct 3.4 % (0.9-11.2); Lymphocytes Absolute Auto 1.50 K/mm3 (0.9-3.2); Mean Corpuscular HGB Conc 33.8 g/dl (32-36); Mean Corpuscular Hemoglobin 32.9 pg (26-34); Mean Corpuscular Volume 97.3 fl (80-100); Nucleated Red Blood Cells Absolute Auto 0.000 K/mm3 (0.0-0.012); Nucleated Red Blood Cells Perc 0.0 % (0.0-0.2); Platelet Count Result 120 k/mm3 (150-375); Red Blood Count 4.38 M/mm3 (4.6-6.20); White Blood Count 3.2 K/mm3 (4.5-10.0)
--- OUTSIDE RECORDS SUMMARY | 2025-01-06 14:20 | XMS_ITS | Clinical Summary ---
Author Organization [facility] Address [address] [place] [address] Care Team Providers Care Take Out Waiter/Waitress Name Role Phone Genaro Mckeon MD Unavailable [phone] Jone Victor DO Primary Care Provider [...] 04/2021 Assessment & Plan (01/30/2023 9:09 AM BARMAN): Completed today Assessment & Plan (01/02/2022 9:52 [...] 06/27/2020 Assessment & Plan (01/30/2023 9:09 AM BARMAN): Has been stable. No bleeding or bruising. [...] to discuss further with family and consult admitted attorneys or complete [place] approved form, which I would be glad to assist them with completion. All questions answered. polst form filled out and signed Essential hypertension 12/19/2015 Assessment & Plan (01/30/2023 9:09 AM BARMAN): Stable on norvasc 10 mg daily. Assessment [...] 01/27/2019 12/27/2019 Cough 01/27/2019 12/27/2019 Other neutropenia ([facility]/HCC) 08/12/2017 01/02/2022 Immunizations Immunization Administration Dates [...] on file Legal Sex Male 9:13 AM BARMAN Gender Identity Male 08/14/2017 2:17 PM CDT [...] DO LAB BLOOD ORDERABLES Fin al Result [facility] [address] [facility] Department of Laboratories [place], [place] [id number] * Hepatitis C antibody (07/11/2020 9:19 AM CDT) Hep C Ab NONREACT NONREACTIVE [facility] Comment: Siemens [employer]aurXP using FLAVIO (chemiluminescent immunoassay) technology. NONREACTIVE: Antibodies [...] MICROBIOLOGY - GENER AL ORDERABLES Final Result [place] [address] [place], [place] [address] [phone] * Colonoscopy (12/30/2017) Anatomical Region Laterality Modality Other Historical Provider ENDOSCOPY PROCEDURES Lauren l Result from Last 3 Months or Most Recently Relevant to Health Maintenance Insurance [employer] [place] [facility] MEDICARE MEDICARE [facility] Advance Directives For more information, please contact: [phone] Documents on File Type Date Recorded Patient Grain Mixer Expl anation ADVANCE DIRECTIVE 12/27/2019 Care Teams Take Out Waiter/Waitress Relationship Specialty Start Date End Date Jone Victor DO PCP - General Family Medicine 03/02/24 Genaro Mckeon MD Medical Oncologist/Automatic Cigar Wrapper Tender Hematology and Oncology 02/04/18
--- OUTSIDE RECORDS SUMMARY | 2025-01-06 14:20 | XMS_ITS | Encounter Summary ---
Author Organization [facility] Facility Care Team Providers Care Mounter Name Role Phone Ted Victor MD Primary Care Provider + [phone] Genaro Mckeon MD Unavailable [phone] Jone Victor DO Primary Care Provider + Unknown, Notinfile Primary Care Provider Unavail able Terri Mchugh NP Primary Care Provider + [phone] Jone Victor DO Primary Care Provider + Encounter Details Date Type Department Care Team (Latest Contact Info) Description 12/06/2014 Orders Only [facility] CLINCONV ProviderSue MD [address] [place] [address] Social History Tobacco Use Types Packs/Day Years Used Date Smoking Tobacco: Never Assessed Sex and Gender Information Value Date Recorded Sex Assigned at Not on file Legal Sex Male 9:13 AM HEALTHCARE LIAISON Gender Identity Male 08/14/2017 2:17 PM CDT [...] on filedocumented in this encounter Care Teams Mounter Relationship Specialty Start Date End Date Ted Victor MD [address] [facility] [address] [place] [address] PCP - General 04/24/17 04/27/19 Jone Victor DO [address] [facility] [address] [place] [address] PCP - General 04/28/19 09/28/23 Unknown, Notinfile PCP - General 09/29/23 10/26/23 Terri Mchugh NP PCP - General Family Medicine 10/27/23 03/01/24 Jone Victor DO PCP - General Family Medicine 03/02/24 Genaro Mckeon MD [address] [facility] [address] [place] [address] Medical Oncologist/Conveyor Man Hematology and Oncology 02/04/18 documented as of this encounter
--- OUTSIDE RECORDS SUMMARY | 2025-01-06 14:20 | XMS_ITS | Clinical Summary ---
Author Organization [facility] Address [address] [place] [address] Care Team Providers Care Military Technician Name Role Phone Unavailable Primary Care Provider Unavailabl e Social History Tobacco Use Types Packs/Day Years Used Date Smoking Tobacco: Never Assessed Sex and Gender Information Value Date Recorded Sex Assigned at Not on file Legal Sex Male 2:19 PM C APPLICATION DEVELOPER Gender Identity Not on file Sexual Orientation [...]
--- OUTSIDE RECORDS SUMMARY | 2025-01-06 14:20 | XMS_ITS | Encounter Summary ---
Author Organization [facility] Facility Care Team Providers Care Hand Laminator Name Role Phone Ted Victor MD Primary Care Provider + [phone] Genaro Mckeon MD Unavailable [phone] Jone Victor DO Primary Care Provider + Unknown, Notinfile Primary Care Provider Unavail able Terri Mchugh NP Primary Care Provider + [phone] Jone Victor DO Primary Care Provider + Encounter Details Date Type Department Care Team (Latest Contact Info) Description 12/07/2012 Orders Only [facility] CLINCONV ProviderSue MD [address] [place] [address] Social History Tobacco Use Types Packs/Day Years Used Date Smoking Tobacco: Never Assessed Sex and Gender Information Value Date Recorded Sex Assigned at Not on file Legal Sex Male 9:13 AM LABORER OPERATOR Gender Identity Male 08/14/2017 2:17 PM [...] on filedocumented in this encounter Care Teams Hand Laminator Relationship Specialty Start Date End Date Ted Victor MD [address] [facility] [address] [place] [address] PCP - General 04/24/17 04/27/19 Jone Victor DO [address] [facility] [address] [place] [address] PCP - General 04/28/19 09/28/23 Unknown, Notinfile PCP - General 09/29/23 10/26/23 Terri Mchugh NP PCP - General Family Medicine 10/27/23 03/01/24 Jone Victor DO PCP - General Family Medicine 03/02/24 Genaro Mckeon MD [address] [facility] [address] [place] [address] Medical Oncologist/Asthma Educator Hematology and Oncology 02/04/18 documented as of this encounter
--- OUTSIDE RECORDS SUMMARY | 2025-01-06 14:20 | XMS_ITS | Encounter Summary ---
Author Organization [facility] Facility Care Team Providers Care Braider Setter Name Role Phone Ted Victor MD Primary Care Provider + [phone] Genaro Mckeon MD Unavailable [phone] Jone Victor DO Primary Care Provider + Unknown, Notinfile Primary Care Provider Unavail able Terri Mchugh NP Primary Care Provider + [phone] Jone Victor DO Primary Care Provider + Encounter Details Date Type Department Care Team (Latest Contact Info) Description 12/30/2017 Orders Only [facility] CLINCONV Provider, MD Sue [address] [place] [address] Social History Tobacco Use Types Packs/Day Years Used Date Smoking Tobacco: Never Smokeless Tobacco: Never Alcohol Use Standard Drinks/Week Comments No 0 (1 standard drink = 0.6 oz pur e alcohol) Sex and Gender Information Value Date Recorded Sex Assigned at Not on file Legal Sex Male 9:13 AM ASSISTANT BRANCH OPERATIONS MANAGER Gender Identity Male 08/14/2017 2:17 PM [...] on filedocumented in this encounter Care Teams Braider Setter Relationship Specialty Start Date End Date Ted Victor MD [address] [facility] [address] [place] [address] PCP - General 04/24/17 04/27/19 Jone Victor DO [address] [facility] [address] [place] [address] PCP - General 04/28/19 09/28/23 Unknown, Notinfile PCP - General 09/29/23 10/26/23 Terri Mchugh NP PCP - General Family Medicine 10/27/23 03/01/24 Jone Victor DO PCP - General Family Medicine 03/02/24 Genaro Mckeon MD [address] [facility] [address] [place] [address] Medical Oncologist/Arborer Hematology and Oncology 02/04/18 documented as of this encounter
== END 2025-01-05 14:42 | disposition home or self-care (01) ==
PROVIDERS: PCP Internal Medicine Geriatric Medicine; Visit Provider Family Medicine
DX: D69.6 Thrombocytopenia, unspecified (principal)
CPT/HCPCS: 36415; 85025; 85055

== ENCOUNTER 2025-01-12 18:09 | Observation (INO) | payer MEDICARE, OTHER, SELFPAY ==
--- NOTE | 2024-12-29 13:36 | PC.NURSE ---
[facility] has started construction of its new state of the art ER which will open Spring 2026. With this, we anticipate parking may be a challenge for some our surgical patients and families. Parking spaces are limited but are available for all Surgical, obstetrics, and ER patients sharing this lot. If you arrive and find you are having a hard time finding a parking space, please note that we understand the challenges, please drive around the hospital and park near Hospital Entrance 1. When you enter this entrance, you can ask a volunteer to direct or take you back to the surgical waiting area to check in. We appreciate everyone?s understanding of these expected challenges while we build for your future. Report to the Outpatient Waiting Room, entrance under the green pavilion located off [address], at time 9:30 AM on date _01/11/25 . Planned Procedure Time: ___11:30 AM .? Time changes happen often and if your time is changed the preop area will call you the afternoon before. - You and your visitor will be asked to self-screen and do not enter if you have any COVID symptoms. Please call surgeon if you need to reschedule. - A mask is optional within the hospital at this time. TOTAL JOINT CLASS 01/05/25 AT 10 AM Patients may have clear liquids (water, carbonated beverages, clear teas, apple juice) until 3 hours prior to surgery( 8:30AM) with a maximum of 20 ounces. - No food from midnight until time of surgery and no smoking, or chewing tobacco (or any form of nicotine). No chewing gum, candy or mints. - Take only the following medications with a SIP of water on the morning of surgery: __AMLODIPINE DO NOT STOP ANY OF YOUR OTHER PRESCRIPTION MEDICATIONS PRIOR TO SURGERY EXCEPT THE FOLLOWING Hold all vitamins and supplements for 3 days per anesthesiologist.LAST DOSE 01/07/25 Medications to discontinue per physician ___ASPIRIN PER DR RICCI Date to take last dose Please no make-up, nail moroccan, hairspray, perfume, deodorant, or body powder the day of surgery.? No jewelry (including any body piercings) or valuables the day of surgery, leave them at home.? Please take a shower or bath the night before, or the morning of, surgery with an antibacterial soap.? Wear comfortable, loose fitting clothing.? Children are encouraged to wear pajamas. - Jewelry must be removed prior to entering the operating room.? Rings and piercings that are not removed may be cut off. - The hospital will not accept responsibility for valuables.? - Please leave all valuables, including medications, at home the day of surgery. If you are going home after surgery, a licensed catering driver must drive you home.? - NO public transportation without another adult if you receive anesthesia. - We recommend that an adult stay with you for 24 hours following discharge. - We also recommend that you do not drive, make important decision, drink alcoholic beverages, or take any drugs that were not prescribed by your health care provider for at least 24 hours after your discharge time. For Pediatric surgeries, we recommend two adults accompany the child home. Follow any additional instructions given to you from your surgeon. VERBAL AND WRITTEN instructions given to ___PATIENT and asked if any additional questions and then verbalized understanding. Patient advised to call surgeon office or pre surgery nurse liaison [phone] if any additional questions.
[2024-12-29 13:40] VITALS: BMI 28.5
[2024-12-29 14:19] VITALS: BP 144/80; PULSE 72; RESP 18; TEMP 36.9; O2SAT 100
[2025-01-11] VITALS (10 sets, daily range): BP systolic 94–145; BP diastolic 62–93; PULSE 63–99; RESP 10–20; TEMP 36.3–36.8; O2SAT 97–100
--- OUTSIDE RECORDS SUMMARY | 2025-01-11 00:33 | XMS_ITS | Encounter Summary ---
Author Organization [facility] Facility Care Team Providers Care Home Inspector Name Role Phone Ted Victor MD Primary Care Provider + [phone] Genaro Mckeon MD Unavailable [phone] Jone Victor DO Primary Care Provider + Unknown, Notinfile Primary Care Provider Unavail able Terri Mchugh NP Primary Care Provider + [phone] Jone Victor DO Primary Care Provider + Encounter Details Date Type Department Care Team (Latest Contact Info) Description 12/30/2017 Orders Only MMG CLINCONV Provider, MD Sue [address] [place] [address] Social History Tobacco Use Types Packs/Day Years Used Date Smoking Tobacco: Never Smokeless Tobacco: Never Alcohol Use Standard Drinks/Week Comments No 0 (1 standard drink = 0.6 oz pur e alcohol) Sex and Gender Information Value Date Recorded Sex Assigned at Not on file Legal Sex Male 9:13 AM REPORTS ANALYSIS MANAGER Gender Identity Male 08/14/2017 2:17 PM [...] on filedocumented in this encounter Care Teams Home Inspector Relationship Specialty Start Date End Date Ted Victor MD [address] [facility] [address] [place] [address] PCP - General 04/24/17 04/27/19 Jone Victor DO [address] [facility] [address] [place] [address] PCP - General 04/28/19 09/28/23 Unknown, Notinfile PCP - General 09/29/23 10/26/23 Terri Mchugh NP PCP - General Family Medicine 10/27/23 03/01/24 Jone Victor DO PCP - General Family Medicine 03/02/24 Genaro Mckeon MD [address] [facility] [address] [place] [address] Medical Oncologist/Bag Printer Hematology and Oncology 02/04/18 documented as of this encounter
--- OUTSIDE RECORDS SUMMARY | 2025-01-11 00:33 | XMS_ITS | Clinical Summary ---
Author Organization [facility] Address [address] [place] [address] Care Team Providers Care Drag Seiner Name Role Phone Unavailable Primary Care Provider Unavailabl e Social History Tobacco Use Types Packs/Day Years Used Date Smoking Tobacco: Never Assessed Sex and Gender Information Value Date Recorded Sex Assigned at Not on file Legal Sex Male 2:19 PM HEALTH ADVISOR Gender Identity Not on file Sexual Orientation [...]
--- OUTSIDE RECORDS SUMMARY | 2025-01-11 00:33 | XMS_ITS | Encounter Summary ---
Author Organization [facility] Facility Care Team Providers Care Betting Agency Counter Clerk Name Role Phone Ted Victor MD Primary Care Provider + [phone] Genaro Mckeon MD Unavailable [phone] Jone Victor DO Primary Care Provider + Unknown, Notinfile Primary Care Provider Unavail able Terri Mchugh NP Primary Care Provider + [phone] Jone Victor DO Primary Care Provider + Encounter Details Date Type Department Care Team (Latest Contact Info) Description 12/07/2012 Orders Only [facility] CLINCONV ProviderSue MD [address] [place] [address] Social History Tobacco Use Types Packs/Day Years Used Date Smoking Tobacco: Never Assessed Sex and Gender Information Value Date Recorded Sex Assigned at Not on file Legal Sex Male 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 Gender Identity Male 08/14/2017 2:17 PM CDT [...] on filedocumented in this encounter Care Teams Betting Agency Counter Clerk Relationship Specialty Start Date End Date Ted Victor MD [address] [facility] [address] [place] [address] PCP - General 04/24/17 04/27/19 Jone Victor DO [address] [facility] [address] [place] [address] PCP - General 04/28/19 09/28/23 Unknown, Notinfile PCP - General 09/29/23 10/26/23 Terri Mchugh NP PCP - General Family Medicine 10/27/23 03/01/24 Jone Victor DO PCP - General Family Medicine 03/02/24 Geanro Mckeon MD [address] [facility] [address] [place] [address] Medical Oncologist/Lens Cleaner Hematology and Oncology 02/04/18 documented as of this encounter
--- OUTSIDE RECORDS SUMMARY | 2025-01-11 00:33 | XMS_ITS | Encounter Summary ---
Author Organization [facility] Facility Care Team Providers Care Drill Punch Operator Name Role Phone Ted Victor MD Primary Care Provider + [phone] Genaro Mckeon MD Unavailable +[phone] Jone Victor DO Primary Care Provider + Unknown, Notinfile Primary Care Provider Unavail able Terri Mchugh NP Primary Care Provider + [phone] Jone Victor DO Primary Care Provider + Encounter Details Date Type Department Care Team (Latest Contact Info) Description 12/06/2014 Orders Only [facility] CLINCONV ProviderSue MD [address] [place] [address] Social History Tobacco Use Types Packs/Day Years Used Date Smoking Tobacco: Never Assessed Sex and Gender Information Value Date Recorded Sex Assigned at Not on file Legal Sex Male 9:13 AM SOFTWARE ENGINEERING SPECIALIST Gender Identity Male 08/14/2017 2:17 PM CDT [...] on filedocumented in this encounter Care Teams Drill Punch Operator Relationship Specialty Start Date End Date Ted Victor MD [address] [facility] [address] [place] [address] PCP - General 04/24/17 04/27/19 Jone Victor DO [address] [facility] [address] [place] [address] PCP - General 04/28/19 09/28/23 Unknown, Notinfile PCP - General 09/29/23 10/26/23 Terri Mchugh NP PCP - General Family Medicine 10/27/23 03/01/24 Jone Victor DO PCP - General Family Medicine 03/02/24 Genaro Mckeon MD [address] [facility] [address] [place] [address] Medical Oncologist/Director Of Veterans Affairs Hematology and Oncology 02/04/18 documented as of this encounter
--- OUTSIDE RECORDS SUMMARY | 2025-01-11 00:33 | XMS_ITS | Clinical Summary ---
Author Organization [facility] Address [address] [place] [address] Care Team Providers Care Drip Pumper Name Role Phone Jone Nolasco DO Primary Care Provider [phone] Social History Tobacco Use Types Packs/Day Years [...] age to complete this topic Insurance MEDICARE [facility] Care Teams Drip Pumper Relationship Specialty Start Date End Date Jone Nolasco DO [address] [place] [phone] PCP - General FAMILY PRACTICE 07/15/23
--- OUTSIDE RECORDS SUMMARY | 2025-01-11 00:33 | XMS_ITS | Clinical Summary ---
Author Organization [facility] Address [address] [place] [id number] Care Team Providers Care Waitstaff Name Role Phone Genaro Mckeon MD Unavailable [phone] Jone Victor DO Primary Care Provider [...] 04/2021 Assessment & Plan (01/30/2023 9:09 AM CHIP MUCKER): Completed today Assessment & Plan (01/02/2022 9:52 [...] 06/27/2020 Assessment & Plan (01/30/2023 9:09 AM CHIP MUCKER): Has been stable. No bleeding or bruising. [...] 12/19/2015 Assessment & Plan (01/30/2023 9:09 AM CHIP MUCKER): Stable on norvasc 10 mg daily. Assessment [...] 01/27/2019 12/27/2019 Cough 01/27/2019 12/27/2019 Other neutropenia ([facility]/HCC) 08/12/2017 01/02/2022 Immunizations Immunization Administration Dates [...] on file Legal Sex Male 9:13 AM CHIP MUCKER Gender Identity Male 08/14/2017 2:17 PM CDT [...] DO LAB BLOOD ORDERABLES Fin al Result [facility] [address] [facility] Department of Laboratories [place], [place] [id number] * Hepatitis C antibody (07/11/2020 9:19 AM CDT) Hep C Ab NONREACT NONREACTIVE [facility] Comment: Siemens Labels That [employer] using FLAVIO (chemiluminescent immunoassay) technology. NONREACTIVE: Antibodies [...] MICROBIOLOGY - GENER AL ORDERABLES Final Result [place] [address] [place], [place] [address] [phone] * Colonoscopy (12/30/2017) Anatomical Region Laterality Modality Other Historical Provider ENDOSCOPY PROCEDURES Lauren l Result from Last 3 Months or Most Recently Relevant to Health Maintenance Insurance [employer] Member Subscriber Plan / Payer ( fective 2014-Present) Name:Jignesh Gagnon Relation to Subscriber:Self Name:Jignesh Gagnon Payer ID:[id number] Group ID:Not on file Type:Combat Stroke Address: [address] [facility] [place] [facility] [place] [address] [facility] Member Subscriber Plan / Payer (Ef fective 2014-Present) Name:Jignesh Gagnon Relation to Subscriber:Self Name:Jignesh Gagnon Payer ID:[id number] Group ID:[id number] Type:Combat Stroke Address: [address] [facility] [place] [place] [address] MEDICARE MEDICARE [facility] Member Subscriber Plan / Payer ( fective 2014-Present) Name:Jignesh Gagnon Relation to Subscriber:Self Name:Jignesh Gagnon Payer ID:[id number] Group ID:Not on file Type:Combat Stroke Address: [address] [facility] [address] [place] [address] Advance Directives For more information, please contact: [phone] Documents on File Type Date Recorded Patient Machine Deicer Element Winder Expl anation ADVANCE DIRECTIVE 12/27/2019 Care Teams Waitstaff Relationship Specialty Start Date End Date Jone Victor DO PCP - General Family Medicine 03/02/24 Genaro Mckeon MD Medical Oncologist/Answering Service Agent Hematology and Oncology 02/04/18
--- NOTE | 2025-01-11 08:30 | WPDHPUPDATE1 ---
History and Physical Update Update Date/Time: 01/11/25 08:30 History and Physical has been reviewed, including an updated exam of the patient. There are NO changes in the patient's condition. Risks, benefits, and alternatives have been discussed and questions answered. Patient agrees to proceed with procedure.
[2025-01-11] MEDS: LACTATED RINGERS 1,000 ML 30 ML IV CONT ×2 (10:15→14:37)
[2025-01-11] MEDS: ACETAMINOPHEN 500 MG TABLET 1000 MG PO (10:15)
[2025-01-11] MEDS: TRANEXAMIC ACID 1,000MG/ISO100 1,000 MG/100 ML BAG 200 MG IVPB (10:20)
[2025-01-11 10:40] LABS: Immature Platelet Fraction Pct 2.5 % (0.9-11.2); Platelet Count Result 112 k/mm3 (150-375)
--- NOTE | 2025-01-11 11:15 | WPDANESEPPF ---
Anes - Initial Pre Proc Eval Procedure: Operation Date: 01/11/25 11:30 Proposed Procedures p Left Total Knee Arthroplasty - Neal Sanchez MD Date/Time: 01/11/25 11:15 Surgeon: Neal Sanchez MD Pre Op Diagnosis: Left Knee DJD Patient Data Age: 79 Gender: M Height: 1.91 m Weight: 101.6 kg Last Vital Signs Temp 36.7 C 01/11/25 09:45 Pulse 78 01/11/25 09:45 Resp 18 01/11/25 09:45 BP 130/93 H 01/11/25 09:45 Pulse Ox 100 01/11/25 09:45 O2 Del Method Room Air 01/11/25 09:45 Allergies Allergy/AdvReac Type Severity Reaction Status Date / Time lisinopril AdvReac Mild Cough Verified 01/06/25 10:47 Home Medications ?Medication ?Instructions ?Recorded ?Confirmed ?Type amlodipine 10 mg tablet 10 mg PO DAILY 09/14/20 01/11/25 History aspirin 81 mg tablet 81 mg PO DAILY 07/20/24 01/11/25 History tamsulosin 0.4 mg capsule 0.4 mg PO Q24H 07/20/24 01/11/25 History ascorbic acid (vitamin C) 1,000 mg 1,000 mg PO DAILY 12/29/24 01/11/25 History tablet,extended release (C Complex) cholecalciferol (vitamin D3) 50 50 mcg PO DAILY 12/29/24 01/11/25 History mcg (2,000 unit) capsule vitamin A 2,400 mcg capsule 2,400 mcg PO DAILY 12/29/24 01/11/25 History vitamin B complex (Complex B-100 1 tablet PO DAILY 12/29/24 01/11/25 History tablet,extended release) vitamin E 268 mg (400 unit) capsule 268 mg PO DAILY 12/29/24 01/11/25 History Laboratory Tests 01/11/25 10:27 Plt Count 112 L k/mm3 (150-375) MPV 10.0 fl (7.4-10.4) % Immature Plt Fraction 2.5 % (0.9-11.2) Patient hx anesthesia problems: none Family hx anesthesia problems: none Results Review: All pre-operative results and documents have been reviewed as part of the pre-operative evaluation. [facility] Past Medical History Medical History (Updated 01/11/25 @ 11:16 by Nitin Jarrett MD) HTN (hypertension), benign Surgical History Surgical History H/O foot surgery Family History Family History Sibling Hypertension Alzheimer disease Lung cancer Mother Heart attack Father Heart attack Parkinson disease Social History Social History Smoking status: Never smoker Additional smoking assessment comments: DENIES ANY FORM OF TOBACCO USE Alcohol intake: never Substance use: never Substance use type: does not use Living arrangements: with family Gender identity (if verbalized by the patient): Male Spiritual care concerns: No Anes - Eval Final PreProcedure Day of Procedure 01/11/25 11:15 Patient weight: overweight Heart: regular rate and rhythm Lungs: clear to auscultation Airway: Mallampati scale class II Neurological: alert and oriented Last oral intake: >/= 8 hours ASA classification: III Emergent: no Anesthetic plan: proceed Anesthesia type and monitoring: general LMA and standard monitoring Results Review: All pre-operative results and documents have been reviewed as part of the pre-operative evaluation. Informed Consent: The patient's anesthetic plan and its attendant risks and benefits were discussed with the patient/family/POA. Questions were solicited and answers provided to the satisfaction of the patient/family/POA.
[2025-01-11] MEDS: ceFAZolin 2 GM in SODIUM CHLORIDE 0.9% IV 50 ML 100 ML IVPB ×2 (11:50→20:27)
[2025-01-11] MEDS: SODIUM CHLORIDE 0.9% IV 37.7 ML, MORPHINE SULFATE INJ (*CRX) 2 MG, ROPivacaine HCL 1% 2... INFILTRATE (12:21)
[2025-01-11] MEDS: GENTAMICIN BONE CEMENT REFOBACIN 1 EACH TOPICAL (13:10)
[2025-01-11] MEDS: TRANEXAMIC ACID 1,000 MG/10 ML AMPUL 1000 MG IV PUSH (13:45)
--- NOTE | 2025-01-11 15:17 | W.PM.PROC2 ---
Procedure Note - Detailed Date of Procedure 01/11/25 Pre-op Diagnosis Left Knee DJD Post-op Diagnosis Same Procedure Performed L TKA Surgeon Neal Sanchez MD Anesthesia General Description of Procedure THE LEFT KNEE WAS PREPPED AND DRAPED IN THE STERILE FASHION. A MIDLINE SKIN INCISION WAS MADE. A MEDIAL PARAPATELLAR ARTHROTOMY WAS MADE. THE PATELLA WAS EVERTED. THERE WAS TRICOMPARTMENT DJD. THERE WAS MINIMAL PATELLA DJD. AN INTRAMEDULLARY OSVALDO WAS PLACED IN THE FEMUR. A DISTAL FEMORAL CUT WAS MADE IN 5 DEGREES OF VALGUS REMOVING APPROXIMATELY 9 MM OF BONE FROM THE DISTAL FEMUR. THE FEMUR WAS SIZED TO 75. A 75 FEMORAL CUTTING BLOCK WAS PLACED IN 3 DEGREES OF EXTERNAL ROTATION AND IN ALIGNMENT WITH LUX'S LINE AND THE TRANSEPICONDYLAR AXIS. ANTERIOR POSTERIOR AND CHAMFER CUTS WERE MADE. THE CUTS WERE EXCELLENT. NEXT AN INTRAMEDULLARY CUTTING GUIDE WAS PLACED IN THE TIBIA. A TRANS TIBIAL CUT WAS MADE ALONG THE LONG AXIS OF THE TIBIA. APPROXIMATELY 10 MM OF BONE WAS REMOVED FROM THE HIGH SIDE OF THE TIBIA. THE TIBIA WAS THEN PLANED TO A SMOOTH SURFACE. POSTERIOR FEMORAL OSTEOPHYTES WERE REMOVED FROM THE FEMORAL CONDYLES. AN 87 TIBIAL TRIAL WAS PLACED IN ALIGNMENT WITH THE 1/3 MEDIAL ASPECT OF THE TIBIAL TUBERCLE. THEN A 75 FEMORAL TRIAL COMPONENT WAS PLACED. BOTH HAD EXCELLENT FITS. EVENTUALLY A 12 MM POLYETHYLENE TRIAL COMPONENT WAS PLACED. THE KNEE WAS TAKEN THROUGH A RANGE OF MOTION. THE KNEE CAME OUT TO FULL EXTENSION. THERE WAS NO ABNORMAL TILT TO THE PATELLA. THERE WAS GOOD A/P AND VARUS/VALGUS STABILITY. THERE WAS NO EXCESSIVE ROLL BACK WITH FLEXION. THE TRIAL COMPONENTS WERE REMOVED. THEN A 75 FEMORAL COMPONENT AND 87 TIBIAL COMPONENT WITH A 12 POLYETHYLENE COMPONENT WERE CEMENTED INTO PLACE. ONCE THE CEMENT WAS HARD THE KNEE WAS TAKEN THROUGH A ROM AGAIN AND FOUND TO BE STABLE WITH NO PATELLA TILT NO EXCESSIVE ROLL BACK WITH FLEXION AND GOOD STABILITY WITH COMPLETE AND FULL EXTENSION. THE KNEE WAS IRRIGATED WITH STERILE BETADINE AND WATER FOR ABOUT 3 MINUTES. THE BLEEDERS WERE CAUTERIZED. THE ARTHROTOMY WAS REPAIRED WITH NUMBER 1 VICRYL. THE SUB CUTANEOUS LAYER WITH 2-0 VICRYL AND THE SKIN WITH SKIP. THE WOUND WAS WASHED AND A STERILE DRESSING WAS APPLIED. PATIENT WAS EXTUBATED. Estimated Blood Loss 200 Pathology None sent Complications No immediate complications Condition Stable Disposition PACU
--- NOTE | 2025-01-11 16:07 | ADMGEN ---
This patient, Bobo Luke, was admitted to [facility] Surg Room 300-01. Patient/family oriented to hospital policies and general routines including ID bracelet, bed and alarms, visiting hours, pain management, procedures, bathroom and other care routines, personal items, smoking policy, room service/diet, and visiting hours. Information on how to activate the Rapid Response Team has been discussed. Patient/Family are encouraged to report perceived risks to care and to ask questions if they do not understand what they are told or what they should do. received report from mike
[2025-01-11] MEDS: CELECOXIB 200 MG CAPSULE PO (16:18)
[2025-01-11] MEDS: TAMSULOSIN HCL 0.4 MG CAPSULE PO (16:18)
[2025-01-11] MEDS: SODIUM CHLORIDE 0.9% IV 1,000 ML 125 ML IV CONT (16:18)
[2025-01-11] MEDS: SENNA/DOCUSATE SODIUM TABLET 2 TAB PO (16:18)
[2025-01-11] MEDS: FAMOTIDINE 20 MG TABLET PO (20:27)
[2025-01-11] MEDS: ASPIRIN 81 MG ENTERIC TABLET PO (20:27)
[2025-01-12] VITALS (9 sets, daily range): BP systolic 102–137; BP diastolic 57–83; PULSE 87–99; RESP 14–18; TEMP 36.2–36.7; O2SAT 98–100
--- NOTE | ~2025-01-12 | XR_ITS ---
EXAMINATION: [id number], 01/11/2025 15:00 RESIDENTIAL SOLAR SALES CONSULTANT HISTORY: POST-OP LEFT TKA COMPARISON: No comparisons available. Findings: No acute fracture or malalignment. Arthroplasty intact Soft tissues unremarkable. Impression: No acute fracture or malalignment. Reviewed, dictated and finalized at location P. DENTIAL SOLAR SALES CONSULTANT Impression: No acute fracture or malalignment.
[2025-01-12] MEDS: ceFAZolin 2 GM in SODIUM CHLORIDE 0.9% IV 50 ML 100 ML IVPB ×2 (04:38→12:43)
[2025-01-12 05:51] LABS: Hematocrit 37.4 % (42.0-52.0); Hemoglobin 12.5 g/dL (14.0-18.0); Immature Granulocyte Percent A 0.4 % (0-0.5); Immature Platelet Fraction Pct 2.8 % (0.9-11.2); Lymphocytes Absolute Auto 1.13 K/mm3 (0.9-3.2); Mean Corpuscular HGB Conc 33.4 g/dl (32-36); Mean Corpuscular Hemoglobin 32.6 pg (26-34); Mean Corpuscular Volume 97.7 fl (80-100); Nucleated Red Blood Cells Absolute Auto 0.000 K/mm3 (0.0-0.012); Nucleated Red Blood Cells Perc 0.0 % (0.0-0.2); Platelet Count Result 103 k/mm3 (150-375); Red Blood Count 3.83 M/mm3 (4.6-6.20); White Blood Count 7.4 K/mm3 (4.5-10.0)
[2025-01-12 06:03] LABS: Anion Gap 6 mmol/L (4-12); Blood Urea Nitrogen 11 mg/dL (9-20); Calcium 8.6 mg/dL (8.4-10.2); Carbon Dioxide 26 mmol/L (22-30); Chloride 107 mmol/L (98-107); Estimated CRCL calculation 70 ml/min; Estimated Glomerular Filt Rate > 60; Glucose 106 mg/dL (65-110); Potassium 4.2 mmol/L (3.4-5.0); Sodium 139 mmol/L (137-145)
[2025-01-12] MEDS: FAMOTIDINE 20 MG TABLET PO ×2 (08:36→20:21)
[2025-01-12] MEDS: SENNA/DOCUSATE SODIUM TABLET 2 TAB PO ×2 (08:36→16:42)
[2025-01-12] MEDS: CELECOXIB 200 MG CAPSULE PO ×2 (08:36→16:42)
[2025-01-12] MEDS: ASPIRIN 81 MG ENTERIC TABLET PO ×2 (08:36→20:21)
[2025-01-12] MEDS: VITAMIN B COMPLEX CAPSULE 1 CAP PO (08:36)
[2025-01-12] MEDS: TAMSULOSIN HCL 0.4 MG CAPSULE PO (15:07)
--- NOTE | 2025-01-12 19:00 | P.PNOP_ITS ---
Progress Note: A&P Assessment and Plan (1) S/P total knee arthroplasty: Code(s): Z96.659 - Presence of unspecified artificial knee joint Status: Acute Assessment and Plan: POD 1 WITH SOME LABILE BP. HIS RECENT VITALS HAVE IMPROVED. WE WILL OBSERVE HIM ANOTHER NIGHT FOR NOW Subjective Subjective Date/Time Seen: 01/12/25 19:00 Interval history: POD 1 DOING WELL. HE HAS HAD SOME SYNCOPAL EPISODES AND SOME DECREASED BP. HE IS ALERT AND ORIENTED. Exam Extrem: Other: VSS AFEBRILE DRESSING DRY NV INTACT NEG HOMANS SIGN THIGH SOFT AND CALF SOFT Objective Data Vital Signs Vital Signs: Vital Signs - 24 hr 01/11/25 20:19 01/12/25 00:12 01/12/25 05:19 Temperature 36.6 C 36.4 C 36.3 C L Pulse Rate 99 87 99 Respiratory Rate 18 16 18 Blood Pressure 132/74 131/76 137/83 Pulse Oximetry 99 99 100 Oxygen Delivery 01/12/25 07:35 01/12/25 08:05 01/12/25 08:38 Temperature 36.2 C L Pulse Rate 94 Respiratory Rate 18 Blood Pressure 135/80 103/57 L Pulse Oximetry 99 Oxygen Delivery Room Air 01/12/25 10:35 01/12/25 11:47 01/12/25 17:19 Temperature 36.2 C L 36.7 C Pulse Rate 91 98 Respiratory Rate 14 18 Blood Pressure 117/75 135/73 Pulse Oximetry 99 98 Oxygen Delivery Room Air 01/12/25 17:24 01/12/25 18:06 01/12/25 18:06 Temperature Pulse Rate Respiratory Rate Blood Pressure 127/70 117/77 102/64 Pulse Oximetry Oxygen Delivery Intake/Output Intake/Output: Intake & Output 01/09/25 01/10/25 01/11/25 01/12/25 23:59 23:59 23:59 23:59 Intake Total 640 820 Output Total 175 200 Balance 465 620 Meds/Results Medications: Active Medications Generic Name Dose Route Start Last Admin Trade Name Freq PRN Reason Stop Dose Admin Acetaminophen 500 mg 01/11/25 15:37 Acetaminophen 500 Mg Tablet PO Q6H PRN Pain Rated 1-3 Amlodipine Besylate 10 mg 01/12/25 09:00 01/12/25 09:35 Amlodipine Besylate 10 Mg Tablet PO 10 mg DAILY ROHIT Administration Aspirin 81 mg 01/11/25 21:00 01/12/25 08:36 Aspirin 81 Mg Enteric Tablet PO 81 mg Q12HR ROHIT Administration Celecoxib 200 mg 01/11/25 17:00 01/12/25 16:42 Celecoxib 200 Mg Capsule PO 200 mg BIDWM ROHIT Administration Diazepam 5 mg 01/11/25 15:37 Diazepam (*Crx) 5 Mg Tablet PO Q8H PRN Spasms Diphenhydramine HCl 25 mg 01/11/25 15:37 Diphenhydramine Hcl Inj 50 Mg/Ml Vial IV PUSH Q6H PRN Itching Famotidine 20 mg 01/11/25 21:00 01/12/25 08:36 Famotidine 20 Mg Tablet PO 20 mg Q12HR ROHIT Administration Hydromorphone HCl 1 mg 01/11/25 15:37 Hydromorphone Hcl Inj (*Crx) 1 Mg/Ml Syr IV PUSH Q2H PRN Breakthrough Pain Rated 7-10 or NPO Hydromorphone HCl 0.5 mg 01/11/25 15:37 Hydromorphone Hcl Inj (*Crx) 1 Mg/Ml Syr IV PUSH Q2H PRN Breakthrough Pain Rated 4-6 or NPO Ibuprofen 800 mg in 200 mls @ 400 mls/hr 01/11/25 15:37 Caldolor 800 Mg/200 Ml IVPB Q6H PRN Breakthrough Pain Rated 1-3 or NPO Naloxone HCl 0.1 mg 01/11/25 15:37 Naloxone Hcl 0.4 Mg/Ml Vial IV PUSH Q2M PRN Opiate Reversal Ondansetron HCl 4 mg 01/11/25 15:37 Ondansetron Inj 4 Mg/2 Ml Vial IV PUSH Q4H PRN Nausea And Vomiting Oxycodone/Acetaminophen 1 tablet 01/11/25 15:37 Oxycodone/Acetaminophen (*Crx) 5-325 Mg Tablet PO Q4H PRN Pain Rated 4-6 Oxycodone/Acetaminophen 1 tab 01/11/25 15:37 Oxycodone/Acetaminophen (*Crx) 10-325 Mg Tablet PO Q6H PRN Pain Rated 7-10 Polyethylene Glycol 17 gm 01/12/25 09:00 01/12/25 08:37 Polyethylene Glycol 3350 17 Gm Powd.Pack PO 17 gm QAM ROHIT Administration Senna/Docusate Sodium 2 tab 01/11/25 17:00 01/12/25 16:42 Senna/Docusate Sodium Tablet PO 2 tab BID ROHIT Administration Tamsulosin HCl 0.4 mg 01/11/25 15:37 01/12/25 15:07 Tamsulosin Hcl 0.4 Mg Capsule PO 0.4 mg Q24H ORHIT Administration Vitamin B Complex 1 cap 01/12/25 09:00 01/12/25 08:36 Vitamin B Complex Capsule PO 1 cap QAM ROHIT Administration Radiology Results: ITS Impressions Knee X-Ray 01/11/25 15:08 Impression: No acute fracture or malalignment. Labs Labs: Laboratory Results - last 24 hr 01/12/25 01/12/25 04:49 04:50 WBC 7.4 RBC 3.83 L Hgb 12.5 L Hct 37.4 L MCV 97.7 MCH 32.6 MCHC 33.4 RDW 14.1 Plt Count 103 L MPV 11.0 H Immature Gran % (Auto) 0.4 Neut % (Auto) 71.0 Lymph % (Auto) 15.2 L Andrew % (Auto) 13.2 H Eos % (Auto) 0.1 Baso % (Auto) 0.1 L Lymph # (Auto) 1.13 Andrew # (Auto) 1.0 H Eos # (Auto) 0.0 Baso # (Auto) 0.0 Abs Immat Gran (auto) 0.03 Absolute Neuts (auto) 5.3 Absolute Nucleated RBC 0.000 Nucleated RBC % 0.0 % Immature Plt Fraction 2.8 Sodium 139 Potassium 4.2 Chloride 107 Carbon Dioxide 26 Anion Gap 6 BUN 11 D Creatinine 0.90 Estim Creat Clear Calc 70 Estimated GFR > 60 Glucose 106 Calcium 8.6
[2025-01-13] MEDS: oxyCODONE/ACETAMINOPHEN (*CRX) 5-325 MG TABLET 1 TABLET PO ×2 (04:25→08:04)
[2025-01-13 05:12] VITALS: BP 121/82; PULSE 105; RESP 18; TEMP 36.8; O2SAT 99
[2025-01-13] MEDS: SENNA/DOCUSATE SODIUM TABLET 2 TAB PO (08:04)
[2025-01-13] MEDS: ASPIRIN 81 MG ENTERIC TABLET PO (08:04)
[2025-01-13] MEDS: FAMOTIDINE 20 MG TABLET PO (08:05)
[2025-01-13] MEDS: VITAMIN B COMPLEX CAPSULE 1 CAP PO (08:05)
[2025-01-13] MEDS: CELECOXIB 200 MG CAPSULE PO (08:05)
--- NOTE | 2025-01-13 08:08 | PCPTNOTE ---
Attempted to see patient for PT, however patient was working with OT.
--- NOTE | 2025-01-13 09:19 | P.PNOP_ITS ---
Progress Note: A&P Assessment and Plan (1) S/P total knee arthroplasty: Qualifiers: Laterality: left Qualified Code(s): Z96.652 - Presence of left artificial knee joint Code(s): Z96.659 - Presence of unspecified artificial knee joint Status: Acute Assessment and Plan: POD #1 : Left TKA Continue PT/OT. WBAT. Walker. HIGH FALL RISK. Continue pain control. Ice Knee. Protect skin. DVT prophylaxis with Aspirin. SCDs. Incentive Spirometry Use reviewed. Monitor Dressing. Change prior to discharge. Bowel Regimen. Dispo: Home with Home Health pending progress with PT/OT Plan Reviewed history, exam, radiographs and current labs with attending MD and covering surgeon, Dr. Sanchez, who agrees with current plan as indicated above. No further recommendations from Dr. Sanchez at this time. Subjective Subjective Date/Time Seen: 01/13/25 09:19 Post Op day: 2 Principal diagnosis: Left Knee DJD Interval history: POD #2: Left TKA Patient doing better today. Pain well controlled. No new concerns. Improvement in BP. Hopeful for d/c home today. Review of Systems Review of Systems: All systems reviewed & are unremarkable except as noted in HPI and below Constitutional: Constitutional: Denies fever(s) and Denies headache(s) ENT: Denies headache(s) Cardiovascular: Cardiovascular: Denies chest pain, Denies diaphoresis, Denies palpitations and Denies dyspnea Respiratory: Respiratory: Denies dyspnea Gastrointestinal: Gastrointestinal: Denies abdominal pain, Denies constipation, Denies nausea and Denies vomiting Genitourinary: Genitourinary: Denies dysuria and Reports nocturia Musculoskeletal: Musculoskeletal: Reports arthralgias (Left Knee ), Reports joint swelling (Left Knee ) and Reports limited range of motion (ROM limited due to recent surgical intervention LEFT Knee ) Neurologic: Denies headache(s) Endocrine: Endocrine: Denies palpitations Exam Const: General: comfortable and no acute distress Resp: Effort & Inspection: normal respiratory effort Cardio: Rate: regular rate Rhythm: regular rhythm GI: GI Palp: Yes Soft to palpation, No Tenderness to palpation present (GI) and No Guarding due to palpation present (GI) Skin: General skin exam: wounds noted (see extremity assessment ) Wounds: wounds noted (see extremity assessment ) Neuro: Cognition (Neuro): normal cognition Other: NV intact aside from block. Moves toes. Sensation intact to light touch. +ankle dorsiflexion/plantarflexion. Extrem: Left lower extremity: normal to inspection, normal capillary refill, knee Details: tenderness (diffuse ) Location: of the patella, swelling (moderate consistent to recent surgery ), abnormal ROM (limited due to recent surgery ) Details: pain with active ROM and pain with passive ROM and ecchymosis (as expected with recent surgery. NO hematoma. ), lower leg (Negative Mendez's Sign ), ankle (+ankle dorsiflexion/plantarflexion ) Details: normal to inspection, no edema and normal ROM; no tenderness and no swelling and foot Details: normal capillary refill, toes with normal ROM, vascular exam Details: dorsalis pedis pulse present and motor-sensory exam light-touch normal; no tenderness Other: Incision left TKA dressing c/d/i. No hematoma. No signs of infection. No wound dehiscence. Psych: Mental Status: mental status grossly normal Objective Data Vital Signs Vital Signs: Vital Signs - 24 hr 01/12/25 10:35 01/12/25 11:47 01/12/25 17:19 Temperature 36.2 C L 36.7 C Pulse Rate 91 98 Respiratory Rate 14 18 Blood Pressure 117/75 135/73 Pulse Oximetry 99 98 Oxygen Delivery Room Air 01/12/25 17:24 01/12/25 18:06 01/12/25 18:06 Temperature Pulse Rate Respiratory Rate Blood Pressure 127/70 117/77 102/64 Pulse Oximetry Oxygen Delivery 01/12/25 21:08 01/13/25 05:12 Temperature 36.7 C 36.8 C Pulse Rate 97 105 H Respiratory Rate 16 18 Blood Pressure 118/64 121/82 Pulse Oximetry 98 99 Oxygen Delivery Intake/Output Intake/Output: Intake & Output 01/10/25 01/11/25 01/12/25 01/13/25 23:59 23:59 23:59 23:59 Intake Total 640 820 Output Total 175 200 Balance 465 620 Meds/Results Medications: Active Medications Generic Name Dose Route Start Last Admin Trade Name Freq PRN Reason Stop Dose Admin Acetaminophen 500 mg 01/11/25 15:37 Acetaminophen 500 Mg Tablet PO Q6H PRN Pain Rated 1-3 Amlodipine Besylate 10 mg 01/12/25 09:00 01/13/25 08:05 Amlodipine Besylate 10 Mg Tablet PO 10 mg DAILY ROHIT Administration Aspirin 81 mg 01/11/25 21:00 01/13/25 08:04 Aspirin 81 Mg Enteric Tablet PO 81 mg Q12HR ROHIT Administration Celecoxib 200 mg 01/11/25 17:00 01/13/25 08:05 Celecoxib 200 Mg Capsule PO 200 mg BIDWM ROHIT Administration Diazepam 5 mg 01/11/25 15:37 Diazepam (*Crx) 5 Mg Tablet PO Q8H PRN Spasms Diphenhydramine HCl 25 mg 01/11/25 15:37 Diphenhydramine Hcl Inj 50 Mg/Ml Vial IV PUSH Q6H PRN Itching Famotidine 20 mg 01/11/25 21:00 01/13/25 08:05 Famotidine 20 Mg Tablet PO 20 mg Q12HR ROHIT Administration Hydromorphone HCl 1 mg 01/11/25 15:37 Hydromorphone Hcl Inj (*Crx) 1 Mg/Ml Syr IV PUSH Q2H PRN Breakthrough Pain Rated 7-10 or NPO Hydromorphone HCl 0.5 mg 01/11/25 15:37 Hydromorphone Hcl Inj (*Crx) 1 Mg/Ml Syr IV PUSH Q2H PRN Breakthrough Pain Rated 4-6 or NPO Ibuprofen 800 mg in 200 mls @ 400 mls/hr 01/11/25 15:37 Caldolor 800 Mg/200 Ml IVPB Q6H PRN Breakthrough Pain Rated 1-3 or NPO Naloxone HCl 0.1 mg 01/11/25 15:37 Naloxone Hcl 0.4 Mg/Ml Vial IV PUSH Q2M PRN Opiate Reversal Ondansetron HCl 4 mg 01/11/25 15:37 Ondansetron Inj 4 Mg/2 Ml Vial IV PUSH Q4H PRN Nausea And Vomiting Oxycodone/Acetaminophen 1 tablet 01/11/25 15:37 01/13/25 08:04 Oxycodone/Acetaminophen (*Crx) 5-325 Mg Tablet PO 1 tablet Q4H PRN Administration Pain Rated 4-6 Oxycodone/Acetaminophen 1 tab 01/11/25 15:37 Oxycodone/Acetaminophen (*Crx) 10-325 Mg Tablet PO Q6H PRN Pain Rated 7-10 Polyethylene Glycol 17 gm 01/12/25 09:00 01/13/25 08:04 Polyethylene Glycol 3350 17 Gm Powd.Pack PO 17 gm QAM ROHIT Administration Senna/Docusate Sodium 2 tab 01/11/25 17:00 01/13/25 08:04 Senna/Docusate Sodium Tablet PO 2 tab BID ROHIT Administration Tamsulosin HCl 0.4 mg 01/11/25 15:37 01/12/25 15:07 Tamsulosin Hcl 0.4 Mg Capsule PO 0.4 mg Q24H ROHIT Administration Vitamin B Complex 1 cap 01/12/25 09:00 01/13/25 08:05 Vitamin B Complex Capsule PO 1 cap QAM [facility] Administration Radiology Results: ITS Impressions Knee X-Ray 01/11/25 15:08 Impression: No acute fracture or malalignment. Quality VTE Prophylaxis VTE prophylaxis: pharmacologic ordered
[2025-01-13 09:41] VITALS: BP 109/69
--- NOTE | 2025-01-14 13:14 | P.DS_ITS ---
DS: Admitting Diagnosis Discharge Date 01/13/25 Admitting Diagnosis Left Knee DJD DS: Discharge Diagnosis Discharge Diagnosis (1) S/P total knee arthroplasty: Qualifiers: Laterality: left Qualified Code(s): Z96.652 - Presence of left artificial knee joint Code(s): Z96.659 - Presence of unspecified artificial knee joint Status: Acute Assessment and Plan: POD #1 : Left TKA Continue PT/OT. WBAT. Walker. HIGH FALL RISK. Continue pain control. Ice Knee. Protect skin. DVT prophylaxis with Aspirin. SCDs. Incentive Spirometry Use reviewed. Monitor Dressing. Change prior to discharge. Bowel Regimen. Dispo: Home with Home Health pending progress with PT/OT Plan Reviewed history, exam, radiographs and current labs with attending MD and covering surgeon, Dr. Sanchez, who agrees with current plan as indicated above. No further recommendations from Dr. Sanchez at this time. DS: Summary Hospital Course Reason for hospitalization: Left TKA Hospital Course: 79 year old male admitted s/p Left TKA for postoperative medical management, pain control and mobilization with PT/OT. Patient progressed well with PT/OT. Low BP on POD #1 making PT/OT difficult. This has resolved on POD #2. The patient has been cleared to be discharged home with home health at this time. All discharge care instructions reviewed at depth. New medications reviewed. Follow up planned for 3 weeks in the outpatient orthopedic clinic with Dr. Sanchez. Dr. Sanchez in agreement with safe discharge at this time. Status at Discharge Functional status at discharge: uses cane/walker Overall status at discharge: patient is progressing back to baseline Time Spent with Patient Time attestation: Total time spent providing and/or coordinating discharge services: Exam Const: General: comfortable and no acute distress Resp: Effort & Inspection: normal respiratory effort Cardio: Rate: regular rate Rhythm: regular rhythm Skin: General skin exam: wounds noted (see extremity assessment ) Wounds: wounds noted (see extremity assessment ) Neuro: Cognition (Neuro): normal cognition Other: NV intact aside from block. Moves toes. Sensation intact to light touch. +ankle dorsiflexion/plantarflexion. Extrem: Left lower extremity: normal to inspection, normal capillary refill, knee Details: tenderness (diffuse ) Location: of the patella, swelling (moderate consistent to recent surgery ), abnormal ROM (limited due to recent surgery ) Details: pain with active ROM and pain with passive ROM and ecchymosis (as expected with recent surgery. NO hematoma. ), lower leg (Negative Mendez's Sign ), ankle (+ankle dorsiflexion/plantarflexion ) Details: normal to inspection, no edema and normal ROM; no tenderness and no swelling and foot Details: normal capillary refill, toes with normal ROM, vascular exam Details: dorsalis pedis pulse present and motor-sensory exam light-touch normal; no tenderness Other: Incision left TKA dressing c/d/i. No hematoma. No signs of infection. No wound dehiscence. Psych: Mental Status: mental status grossly normal Discharge Plan Discharge Attending physician on discharge: Neal Sanchez Consulting providers: Nitin Jarrett; Khushboo Almazan; Greg Sims Discharging Clinician: Khushboo Almazan Patient Disposition: Home with Home Health Service Activity: may shower and no driving Diet: as tolerated Wound Care Instructions: follow printed instructions Discharge Instructions: Per Care Coordination. Patient to have [facility] for RN/PT/OT eval and treat [phone]. They will contact patient to schedule first visit. Post Op Total Knee Replacement Instructions Dr. Neal Sanchez [phone] * Your dressing will be changed prior to your discharge. You will be sent home with one additional dressing to be changed on post op day 7 by the home health RN. Your jacey will be removed on the 14th day after surgery and steri- strips will be placed. Please practice good hand hygiene and do not touch your incision in order to prevent infection. * You may shower with your dressing but do not submerge in a bath tub. * Do not drive or operate machinery until you are released by Dr. Sanchez. * Do not walk without a walker for any reason until you are released by Dr. Sanchez. * Continue to use your ice machine. Please use a towel or pillow case to protect your skin before applying your ice machine. * Do NOT place a pillow under your knee. You may use a pillow from the calf down if needed. This will prevent a flexion contracture postoperatively. * CPM: You may begin use of your CPM machine at home if you have been given one pre-operatively. DO NOT USE WHILE YOU ARE SLEEPING. * ROMTech: If you were given a ROMTech Portable Connect System preoperatively, you are to begin use on the day you arrive home postoperatively. Our goal is for you to use the machine 5 times per day. The sessions are very short in the beginning and will progress as you progress. We are able to monitor your progress from afar as well as your pain and other reported symptoms. If you have difficulties with the machine, please call . NOTE: Please attempt to use the machine even when in pain as this will help desk assistant your therapy with very gentle motion. * Your first post op appointment was sent to you via mail preoperatively. If you have any questions or are unable to make your appointment, please contact our office for scheduling questions. * Your medications have been sent to your pharmacy. You have been sent home with pain medication. Please pick and shovel man an over the counter stool softener to prevent constipation due to narcotic use. Please keep this in mind during your postoperative recovery. If you are not experiencing regular bowel movements, please contact our office for further instruction. * Please contact our office with any questions/concerns regarding your knee at [phone]. Patient Instructions: Antibiotic Form, Precautions after Total Joint Rep lacement Surgery (GEN), Revision Total Joint Arthroplasty (GEN) Patient Language: Hungarian Stand Alone Forms: General Discharge Information Follow-up/Referrals: Neal Sanchez MD [Physician, Orthopedics] - Keep Reg. Scheduled Appt. Discharge Medications: New aspirin 81 mg Tablet,Delayed Release (Dr/Ec) 81 mg PO Q12HR 28 Days Qty: 56 0RF oxycodone-acetaminophen 5-325 mg Tablet 1 tablet PO Q4H PRN (Reason: pain) Qty: 30 0RF Continued vitamin A 2,400 mcg capsule 2,400 mcg PO DAILY Complex B-100 Tablet Extended Release 1 tablet PO DAILY C Complex 1,000 mg tablet extended release 1,000 mg PO DAILY cholecalciferol (vitamin D3) 50 mcg (2,000 unit) capsule 50 mcg PO DAILY vitamin E 268 mg (400 unit) capsule 268 mg PO DAILY amlodipine 10 mg tablet 10 mg PO DAILY tamsulosin 0.4 mg capsule 0.4 mg PO Q24H Held aspirin 81 mg tablet 81 mg PO DAILY Hold Instructions: Resume on 02/08/25. Date of admission: 01/12/25 18:09 Primary Care Provider: Valente,Davidson Gant Admitting Provider: Neal Sanchez Attending physician on admission: Neal Sanchez Condition: Stable Quality VTE Prophylaxis VTE prophylaxis: pharmacologic ordered
== END 2025-01-13 14:45 | disposition home health service (06) ==
LOC: ANHSURGERY 18:14 → ANH3MEDSUR 18:14
PROVIDERS: Anesthesiology; Admitting Provider Orthopaedic Surgery; PCP Internal Medicine Geriatric Medicine; Visit Provider Orthopaedic Surgery
PROC: (CPT 27447; principal; 2025-01-11 11:30)
DX: M17.12 Unilateral primary osteoarthritis, left knee (principal); Z82.49 Family history of ischemic heart disease and other diseases of the circulatory system; Z80.1 Family history of malignant neoplasm of trachea, bronchus and lung; Z84.89 Family history of other specified conditions; Z79.82 Long term (current) use of aspirin
CPT/HCPCS: 27447; 36415; 73560; 80048; 85025; 85049; 85055; 97110; 97116; 97161; 97166; 97530; 97535; J0690; A9270; C1713; C1776; G0378; J0166; J0360; J1885; J2003; J2270; J2405; J2704; J2795; J3010; J3290; J3373; J7030; J7120

== ENCOUNTER 2025-02-19 18:31 | Emergency (ER) | payer MEDICARE, OTHER, SELFPAY ==
--- NOTE | ~2025-02-19 | CT_ITS ---
EXAMINATION: CTA chest PE protocol DATE: 02/20/2025 14:20 AUTOPSY ASSISTANT INDICATION: Chest pain and shortness of breath. TECHNIQUE: Computed tomographic angiography (CTA) of the chest was performed with 100 mL Omnipaque-350 intravenous contrast. The dose-length product was 570.93 mGy-cm. Maximum intensity projection 3D-reconstructions of the aorta and other arteries were constructed by the technologist on a separate workstation. COMPARISON: None. FINDINGS: There is ectasia of the descending thoracic aorta and distal aspect of the aortic arch measuring up to 3.9 cm. No dissection. Study is technically adequate without evidence for pulmonary embolism. Pulmonary arteries enlarged consistent with pulmonary arterial hypertension. No thoracic lymphadenopathy. There is dependent atelectasis. No pneumothorax. No endobronchial lesions. No focal airspace consolidation. No suspicious pulmonary nodules or masses. Upper abdomen is grossly unremarkable. Mild chronic appearing wedge shaped deformities of the midthoracic vertebra. No acute fracture. There is diffuse idiopathic skeletal hyperostosis (DISH) of the thoracic spine. IMPRESSION: 1. No evidence for pulmonary embolism. 2: No acute cardiopulmonary disease. 3: Pulmonary arterial hypertension. Reviewed, dictated and finalized at location O. PSY ASSISTANT
--- NOTE | ~2025-02-19 | CT_ITS ---
EXAMINATION: CTA BRAIN/CAROTID DATE: 02/19/2025 22:08 INDICATION: Dizziness TECHNIQUE: Computed tomographic angiography (CTA) of the head and neck was performed with 100 mL Omnipaque-350 intravenous contrast. Multiplanar reconstructions and maximum intensity projection 3D-reconstructions of the carotid arteries and of the intracranial arteries were created by the technologist on a separate workstation. Precontrast CT of the head was also obtained. Automated exposure control and iterative reconstruction technique were employed.The dose-length product was 1892.04 mGy-cm. COMPARISON: None. FINDINGS: Head: No acute intracranial hemorrhage, acute infarction or abnormal extra axial fluid collection. There is mild to moderate scattered white matter hypoattenuation consistent with chronic small vessel ischemic disease. Symmetric prominence of the sulci and ventricles consistent with mild to moderate age-appropriate diffuse cerebral volume loss. Ventricles are normal and symmetric. No mass/mass effect. No abnormally enhancing lesions on the postcontrast imaging. Changes of bilateral intraocular lens replacement. The orbits and mastoid air cells are normal. Mucous retention cysts in the lateral maxillary sinuses. Intracranial arteries Vertebral arteries are codominant. There is no hemodynamically significant stenosis in the vertebral, basilar and internal carotid arteries. Both A1 and P1 segments are patent. There are no aneurysms identified. Cerebral arterial arborization appears symmetric. Carotid arteries: The aortic arch and the great vessels arising from the arch are normal in caliber with no dissection or hemodynamically significant stenosis. There is no evident atherosclerotic plaque with 0% stenosis of the) left carotid bulbs relative to normal distal artery lumen diameter (NASCET criteria). Bilateral vertebral arteries are codominant with no hemodynamically significant stenosis. 4 mm nodule at the right apex. Moderate lumbar spondylosis with prominent anterior endplate osteophytes from C3-C7. Congenitally unfused posterior ring of C1. IMPRESSION: 1. No evident atherosclerotic plaque with 0% stenosis of the right and left carotid bulbs relative to normal distal artery lumen diameter (NASCET criteria). 2. Unremarkable cerebral CT angiogram with no hemodynamically significant stenosis, aneurysm or thrombosis. 3. Normal aging brain with mild to moderate diffuse volume loss and scattered white matter hypoattenuation consistent with chronic small vessel ischemic disease. No acute intracranial process. Reviewed, dictated and finalized at location A. EL SETTER IMPRESSION: 1. No evident atherosclerotic plaque with 0% stenosis of the right and left car otid bulbs relative to normal distal artery lumen diameter (NASCET criteria). 2. Unremarkable cerebral CT angiogram with no hemodynamically significant steno sis, aneurysm or thrombosis. 3. Normal aging brain with mild to moderate diffuse volume loss and scattered w tejinder matter hypoattenuation consistent with chronic small vessel ischemic disea se. No acute intracranial process.
[2025-02-19 18:34] VITALS: BP 128/75; PULSE 88; RESP 20; TEMP 36.6; O2SAT 99
--- NOTE | 2025-02-19 20:34 | ECG_ITS ---
Test Date: 2025-02-19 20:57:38 Measurements Intervals [place] Rate: 77 P: 52 AR: 165 QRS: 40 QRSD: 86 T: 47 QT: 377 QTc: 427 Interpretive Statements SINUS RHYTHM WITH OCCASIONAL VENTRICULAR PREMATURE COMPLEXES BORDERLINE ECG Compared to ECG 11/12/2024 09:38:35 Ventricular premature complex(es) now present Electronically Signed On 02-20-2025 08:24:25 [employer] by Kimani Garcia D.O.
[2025-02-19 20:35] VITALS: BP 142/76; PULSE 76; RESP 18; O2SAT 98
--- NOTE | 2025-02-19 20:54 | ED.NAVMDI ---
HPI - Nausea/Vomiting/Diarrhea General Chief complaint: Nausea/Vomiting/Diarrhea Stated complaint: Nausea Time Seen by Provider: 02/19/25 20:53 History of Present Illness HPI Narrative: This is a 79-year-old male with history of hypertension and enlarged prostate who presents the emergency department with episode of generalized weakness shortness of breath and nausea that started approximately 5 5:30 p.m.. Patient states he is otherwise in his usual state health started to feel unwell then nauseous and slightly short of breath to the point where he felt like it was difficult to talk. He will observe lasted about an hour. He denies any vertiginous symptoms but felt unsteady. He denies any structural heart disease, denies any lateralized weakness or paresthesias no vertigo no double vision or trouble swallowing. Denies any fevers or chills cough shortness of breath. States he is now in his usual state health and feels okay was concerned about the episode earlier. Denies any recent changes in medication he does take Flomax for this and not any medication Related Data Home Medications ?Medication ?Instructions ?Recorded ?Confirmed ?Last Taken ?Type amlodipine 10 mg tablet 10 mg PO DAILY 09/14/20 01/31/25 01/11/25 History aspirin 81 mg tablet 81 mg PO DAILY 07/20/24 01/31/25 01/11/25 History Held on 01/13/25. Instructions: Resume on 02/08/25. tamsulosin 0.4 mg capsule 0.4 mg PO Q24H 07/20/24 01/31/25 01/10/25 History ascorbic acid (vitamin C) 1,000 mg 1,000 mg PO DAILY 12/29/24 01/31/25 01/08/25 History tablet,extended release (C Complex) cholecalciferol (vitamin D3) 50 50 mcg PO DAILY 12/29/24 01/31/25 01/08/25 History mcg (2,000 unit) capsule vitamin A 2,400 mcg capsule 2,400 mcg PO DAILY 12/29/24 01/31/25 01/08/25 History vitamin B complex (Complex B-100 1 tablet PO DAILY 12/29/24 01/31/25 01/08/25 History tablet,extended release) vitamin E 268 mg (400 unit) capsule 268 mg PO DAILY 12/29/24 01/31/25 01/08/25 History Allergies Allergy/AdvReac Type Severity Reaction Status Date / Time lisinopril AdvReac Mild Cough Verified 02/19/25 18:38 Review of Systems Review of Systems: All systems reviewed & are unremarkable except as noted in HPI and below PMFSH Past Medical History Medical History (Updated 02/19/25 @ 23:51 by Phillip Carrillo MD) HTN (hypertension), benign Surgical History Surgical History (Updated 01/31/25 @ 10:28 by Tanna Borges MA) S/P total knee arthroplasty LT TKA 01/11/25- Dr. Sanchez H/O foot surgery Family History Family History Sibling Hypertension Alzheimer disease Lung cancer Mother Heart attack Father Heart attack Parkinson disease Social History Social History Smoking status: Never smoker Additional smoking assessment comments: DENIES ANY FORM OF TOBACCO USE Alcohol intake: never Substance use: never Substance use type: does not use Lack of Transportation: No Lack of Food: Never True Current Housing: I Have Housing Concerned About Future Housing: No Difficulty Paying Gas/Electric Bills: No Difficulty Paying for Meds: No Currently Unemployed: No Education: Decline to Answer Difficulty w/ Childcare or Family Care: No Living arrangements: with family Gender identity (if verbalized by the patient): Male Spiritual care concerns: No Exam Narrative: EXAMINATION OF ORGAN SYSTEMS/BODY AREAS: Constitutional: Vital signs per nursing GENERAL:No acute distress, non-toxic appearing. HEAD: Normal with no signs of head trauma. EYES: EOMI, conjunctiva normal ENT: Hearing grossly intact LUNGS: Nonlabored breathing. Clear to auscultation bilaterally HEART: Regular rate and rhythm 2+ radial ABD: Soft, nontender to palpation EXT: Normal range of motion SKIN: No rashes or lesions. NEURO: Cranial nerves 2-12 intact cerebellar testing negative. Full strength and sensation throughout. PSYCH: Normal affect Course Vital Signs Vital signs: Vital Signs Temperature 36.6 C 02/19/25 18:34 Pulse Rate 88 02/19/25 18:34 Respiratory Rate 20 02/19/25 18:34 Blood Pressure 128/75 02/19/25 18:34 Pulse Oximetry 99 02/19/25 18:34 Oxygen Delivery Room Air 02/19/25 18:34 Temperature 36.6 C 02/19/25 18:34 Pulse Rate 79 02/19/25 21:24 Respiratory Rate 18 02/19/25 21:24 Blood Pressure 143/89 H 02/19/25 21:24 Pulse Oximetry 100 02/19/25 21:24 Oxygen Delivery Room Air 02/19/25 18:34 [facility] Differential Diagnosis Differential Diagnosis: This is a pleasant 79-year-old male who presents with episode of shortness of breath nausea and dizziness that he describes as global unsteadiness not vertigo he is found be neuro intact with appropriate vital signs and his baseline level of health currently. States he otherwise feels asymptomatic currently, however I am concerned that he possibly had a acute coronary event versus possible atypical pneumonia or other infectious etiology. Much less likely on the differential is TIA. Will obtain CT CT imaging head and neck in addition to CTA of the chest rule out pulmonary embolism as he had a recent surgical procedure just over a month ago. Will obtain EKG, he is quite dehydrated on exam given 1 L fluid bolus continuous vital sign monitoring cardiac labs basic labs and plan for evaluation after workup and treatment. Results and re-evaluation Patient's labs notable for bacteria, leuk esterase positive wbc's. Did go back and evaluate the patient and now he is actually endorsing increased urinary frequency and dysuria. Therefore his presentation is consistent with a complicated UTI given his age and gender. He has been given IV Rocephin and his CT scans are pending at this time but otherwise his clinical status is unchanged. Results re-evaluation 2. Patient's CT scan is pending at time of sign-out. I discussed the urine results the patient and his . Plan is should the CT and CTA to be negative he will be appropriate for discharge to outpatient antibiotics which I have already written. Medical Records I have reviewed the following patient records and this information was taken into consideration when formulating the assessment and plan.: previous ER visits Lab Data [facility] Lab Attestation statement: I personally reviewed the patient's lab results. 02/19/25 21:04 02/19/25 21:04 Labs: Lab Results 02/19/25 02/19/25 02/19/25 Range/Units 21:04 21:42 21:42 WBC 5.0 (4.5-10.0) K/mm3 RBC 3.45 L (4.6-6.20) M/mm3 Hgb 11.1 L (14.0-18.0) g/dL Hct 33.5 L (42.0-52.0) % MCV 97.1 (80-100) fl MCH 32.2 (26-34) pg MCHC 33.1 (32-36) g/dl RDW 14.5 (11.5-14.5) % Plt Count 218 D (150-375) k/mm3 MPV 9.3 (7.4-10.4) fl Immature Gran % (Auto) 0.2 (0-0.5) % Neut % (Auto) 56.8 (45.5-73.1) % Lymph % (Auto) 31.9 (18.3-44.2) % Wood % (Auto) 10.7 H (2.6-8.5) % Eos % (Auto) 0.2 (0-4.4) % Baso % (Auto) 0.2 (0.2-1.2) % Lymph # (Auto) 1.58 (0.9-3.2) K/mm3 Wood # (Auto) 0.5 (0.1-0.6) K/mm3 Eos # (Auto) 0.0 (0-0.3) K/mm3 Baso # (Auto) 0.0 (0.0-0.1) K/mm3 Abs Immat Gran (auto) 0.01 (0.00-0.031) K/mm3 Absolute Neuts (auto) 2.8 (1.3-6.7) K/mm3 Absolute Nucleated RBC 0.000 (0.0-0.012) K/mm3 Nucleated RBC % 0.0 (0.0-0.2) % PT 14.9 H Cancelled (11.1-14.7) Seconds INR 1.2 APTT (22.3-36.8) Seconds D-Dimer (<0.48) ug/mL Sodium 140 (137-145) mmol/L Potassium 3.9 (3.4-5.0) mmol/L Chloride 104 (98-107) mmol/L Carbon Dioxide 29 (22-30) mmol/L Anion Gap 7 (4-12) mmol/L BUN 14 (9-20) mg/dL Creatinine 0.89 (0.7-1.3) mg/dL Estim Creat Clear Calc 71 ml/min Estimated GFR > 60 (59 - ) Glucose 103 (65-110) mg/dL Calcium 9.4 (8.4-10.2) mg/dL Total Bilirubin 0.9 (0.2-1.3) mg/dL AST 38 (17-59) U/L ALT 48 (6-50) U/L Alkaline Phosphatase 165 H (38-126) U/L Troponin I < 0.012 (0.000-0.034) ng/mL Total Protein 7.8 (6.3-8.2) g/dL Albumin 4.0 (3.5-5.1) g/dL Lipase 47 (23-300) U/L Urine Color (Yellow) Urine Appearance (Clear) Urine pH (5.0-9.0) Ur Specific Gro[place] (1.001-1.035) Urine Protein (Negative) mg/dL Urine Glucose (UA) (Negative) mg/dL Urine Ketones (Negative) mg/dL Ur Blood (Man) (Negative) Urine Nitrate (Negative) Urine Bilirubin (Negative) Urine Urobilinogen (<2.0) mg/dL Leukocyte Esterase Rfl (Negative) EMILI/UL Urine RBC (0-2) /hpf Urine WBC (0-3) /hpf Ur Squamous Epith Cells (Few) /hpf Urine Bacteria /hpf Urine Casts Influenza A (RT-PCR) (Negative) Influenza B (RT-PCR) (Negative) RSV (RT-PCR) (Negative) SARS-CoV-2 RNA (RT-PCR) (Negative) Blood Type Antibody Screen 02/19/25 02/19/25 02/19/25 Range/Units 21:42 21:42 23:17 WBC (4.5-10.0) K/mm3 RBC (4.6-6.20) M/mm3 Hgb (14.0-18.0) g/dL Hct (42.0-52.0) % MCV (80-100) fl MCH (26-34) pg MCHC (32-36) g/dl RDW (11.5-14.5) % Plt Count (150-375) k/mm3 MPV (7.4-10.4) fl Immature Gran % (Auto) (0-0.5) % Neut % (Auto) (45.5-73.1) % Lymph % (Auto) (18.3-44.2) % Wood % (Auto) (2.6-8.5) % Eos % (Auto) (0-4.4) % Baso % (Auto) (0.2-1.2) % Lymph # (Auto) (0.9-3.2) K/mm3 Wood # (Auto) (0.1-0.6) K/mm3 Eos # (Auto) (0-0.3) K/mm3 Baso # (Auto) (0.0-0.1) K/mm3 Abs Immat Gran (auto) (0.00-0.031) K/mm3 Absolute Neuts (auto) (1.3-6.7) K/mm3 Absolute Nucleated RBC (0.0-0.012) K/mm3 Nucleated RBC % (0.0-0.2) % PT (11.1-14.7) Seconds INR Cancelled APTT 34.1 Cancelled (22.3-36.8) Seconds D-Dimer 2.85 H (<0.48) ug/mL Sodium (137-145) mmol/L Potassium (3.4-5.0) mmol/L Chloride (98-107) mmol/L Carbon Dioxide (22-30) mmol/L Anion Gap (4-12) mmol/L BUN (9-20) mg/dL Creatinine (0.7-1.3) mg/dL Estim Creat Clear Calc ml/min Estimated GFR (59 - ) Glucose (65-110) mg/dL Calcium (8.4-10.2) mg/dL Total Bilirubin (0.2-1.3) mg/dL AST (17-59) U/L ALT (6-50) U/L Alkaline Phosphatase (38-126) U/L Troponin I (0.000-0.034) ng/mL Total Protein (6.3-8.2) g/dL Albumin (3.5-5.1) g/dL Lipase (23-300) U/L Urine Color Yellow (Yellow) Urine Appearance Clear (Clear) Urine pH 8.0 (5.0-9.0) Ur Specific [place] 1.042 H (1.001-1.035) Urine Protein Negative (Negative) mg/dL Urine Glucose (UA) Negative (Negative) mg/dL Urine Ketones Negative (Negative) mg/dL Ur Blood (Man) Negative (Negative) Urine Nitrate Positive H (Negative) Urine Bilirubin Negative (Negative) Urine Urobilinogen 1.0 (<2.0) mg/dL Leukocyte Esterase Rfl 1+ H (Negative) EMILI/UL Urine RBC 0-2 (0-2) /hpf Urine WBC 6-10 H (0-3) /hpf Ur Squamous Epith Cells None seen (Few) /hpf Urine Bacteria 4+ H /hpf Urine Casts 0-2 Influenza A (RT-PCR) Negative (Negative) Influenza B (RT-PCR) Negative (Negative) RSV (RT-PCR) Negative (Negative) SARS-CoV-2 RNA (RT-PCR) Negative (Negative) Blood Type O Positive Antibody Screen Negative Imaging Data Attestation: I personally reviewed and interpreted this imaging study as follows: ECG Data EKG #1: Attestation: I personally reviewed and interpreted this ECG as follows: Interpretation: Twelve lead EKG per my interpretation shows normal sinus rhythm at 77 beats per minute. Normal axis. Normal intervals. No evidence of ST-T segment elevation or depression. There is a PVC. Otherwise normal EKG Discharge Plan Discharge Clinical Impression: Acute UTI Patient Disposition: Still a Patient Condition: Stable Instructions: Urinary Tract Infection in Men (DC) Patient Language: Micronesian Prescriptions: New sulfamethoxazole-trimethoprim [Bactrim] 400-80 mg tablet 1 tablet PO BID 10 Days Qty: 20 0RF No Action oxycodone-acetaminophen 5-325 mg tablet 1 tablet PO Q8H PRN (Reason: pain) Qty: 30 0RF vitamin A 2,400 mcg capsule 2,400 mcg PO DAILY Complex B-100 Tablet Extended Release 1 tablet PO DAILY C Complex 1,000 mg tablet extended release 1,000 mg PO DAILY cholecalciferol (vitamin D3) 50 mcg (2,000 unit) capsule 50 mcg PO DAILY vitamin E 268 mg (400 unit) capsule 268 mg PO DAILY aspirin 81 mg Tablet,Delayed Release (Dr/Ec) 81 mg PO Q12HR 28 Days Qty: 56 0RF amlodipine 10 mg tablet 10 mg PO DAILY tamsulosin 0.4 mg capsule 0.4 mg PO Q24H aspirin 81 mg tablet 81 mg PO DAILY Follow-up/Referrals: [place],Davidson Gant MD [Non-Staff, Unknown]
[2025-02-19 21:14] LABS: Hematocrit 33.5 % (42.0-52.0); Hemoglobin 11.1 g/dL (14.0-18.0); Immature Granulocyte Percent A 0.2 % (0-0.5); Lymphocytes Absolute Auto 1.58 K/mm3 (0.9-3.2); Mean Corpuscular HGB Conc 33.1 g/dl (32-36); Mean Corpuscular Hemoglobin 32.2 pg (26-34); Mean Corpuscular Volume 97.1 fl (80-100); Nucleated Red Blood Cells Absolute Auto 0.000 K/mm3 (0.0-0.012); Nucleated Red Blood Cells Perc 0.0 % (0.0-0.2); Platelet Count Result 218 k/mm3 (150-375); Red Blood Count 3.45 M/mm3 (4.6-6.20); White Blood Count 5.0 K/mm3 (4.5-10.0)
[2025-02-19 21:24] VITALS: BP 143/89; PULSE 79; RESP 18; O2SAT 100
[2025-02-19 21:25] LABS: Alanine Aminotransferase 48 U/L (6-50); Albumin Level 4.0 g/dL (3.5-5.1); Alkaline Phosphatase 165 U/L (38-126); Anion Gap 7 mmol/L (4-12); Aspartate Amino Transferase 38 U/L (17-59); Bilirubin,Total 0.9 mg/dL (0.2-1.3); Blood Urea Nitrogen 14 mg/dL (9-20); Calcium 9.4 mg/dL (8.4-10.2); Carbon Dioxide 29 mmol/L (22-30); Chloride 104 mmol/L (98-107); Estimated CRCL calculation 71 ml/min; Estimated Glomerular Filt Rate > 60; Glucose 103 mg/dL (65-110); Lipase 47 U/L (23-300); Potassium 3.9 mmol/L (3.4-5.0); Sodium 140 mmol/L (137-145); Total Protein 7.8 g/dL (6.3-8.2)
--- OUTSIDE RECORDS SUMMARY | 2025-02-19 21:41 | XMS_ITS | Clinical Summary ---
Author Organization [facility] Address [address] [place] [id number] Care Team Providers Care Signalman Name Role Phone Genaro Mckeon MD Unavailable [phone] Jone Victor DO Primary Care Provider [...] 04/2021 Assessment & Plan (01/30/2023 9:09 AM MEDICAL CLAIMS REPRESENTATIVE): Completed today Assessment & Plan (01/02/2022 9:52 [...] 06/27/2020 Assessment & Plan (01/30/2023 9:09 AM MEDICAL CLAIMS REPRESENTATIVE): Has been stable. No bleeding or bruising. [...] to discuss further with family and consult title attorney or complete [place] approved form, which I would be glad to assist them with completion. All questions answered. polst form filled out and signed Essential hypertension 12/19/2015 Assessment & Plan (01/30/2023 9:09 AM MEDICAL CLAIMS REPRESENTATIVE): Stable on norvasc 10 mg daily. Assessment [...] Encounters Date Type Department Care Team Description 01/13/2025 Orders Only [facility] [address] [place] [id number] Jone Victor, DO from Last 3 Months Immunizations Immunization Administration [...] on file Legal Sex Male 9:13 AM MEDICAL CLAIMS REPRESENTATIVE Gender Identity Male 08/14/2017 2:17 PM CDT [...] 04/2021, 01/02/2022, Additional history exists Covid-19 Vaccine (2024- 6 season) 2024 12/13/2022, 04/22/2022, 08/28/2021, Additional [...] CDT Jone Victor DO LAB BLOOD ORDERABLES [facility] al Result [facility] [address] [facility] Department of Laboratories [place], [place] [id number] * Hepatitis C antibody (07/11/2020 9:19 AM CDT) Pathologist [facility] Hep C Ab NONREACT NONREACTIVE [facility] Comment: Siemens CentaurXP using FLAVIO (chemiluminescent immunoassay) [...] MICROBIOLOGY - GENER AL ORDERABLES Final Result Performing Organization Address City/State/[facility] Co de Phone Number [facility] [address] [place] [address], [facility] [phone] * Colonoscopy (12/30/2017) Anatomical Region Laterality Modality Other Historical Provider ENDOSCOPY PROCEDURES Lauren l Result from Last 3 Months or Most Recently Relevant to Health Maintenance Insurance MEDICARE [facility] MEDICARE MEDICARE [facility] Advance Directives For more information, please contact: [phone] Documents on File Type Date Recorded 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
--- OUTSIDE RECORDS SUMMARY | 2025-02-19 21:41 | XMS_ITS | Clinical Summary ---
Author Organization 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
--- OUTSIDE RECORDS SUMMARY | 2025-02-19 21:41 | XMS_ITS | Clinical Summary ---
Author Organization [facility] Address [address] [place] [id number] Care Team Providers Care Form Tamper Operator Name Role Phone Jone Nolasco DO Primary Care Provider [phone] Social History Tobacco Use Types Packs/Day Years [...] age to complete this topic Insurance MEDICARE [facility] Care Teams Form Tamper Operator Relationship Specialty Start Date End Date Jone Nolasco DO [address] [place] [id number] PCP - General FAMILY PRACTICE 07/15/23
--- OUTSIDE RECORDS SUMMARY | 2025-02-19 21:41 | XMS_ITS | Encounter Summary ---
Author Organization [facility] Care Team Providers Care Web Worker Name Role Phone Ted Victor MD Primary Care Provider + [phone] Genaro Mckeon MD Unavailable [phone] Jone Victor DO Primary Care Provider + Unknown, Notinfile Primary Care Provider Unavail able Terri Mchugh NP Primary Care Provider + [phone] Jone Victor DO Primary Care Provider + Encounter Details Date Type Department Care Team (Latest Contact Info) Description 12/06/2014 Orders Only [facility]INCON[facility] ProviderSue MD [address] [place] [id number] Social History Tobacco Use Types Packs/Day Years Used Date Smoking Tobacco: Never Assessed Sex and Gender Information Value Date Recorded Sex Assigned at Not on file 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 [address] [place] [id number] PCP - General 04/24/17 04/27/19 Jone Victor DO [address] [facility] [address] [place] [id number] PCP - General 04/28/19 09/28/23 Unknown, Notinfile PCP - General 09/29/23 10/26/23 Terri Mchugh NP PCP - General Family Medicine 10/27/23 03/01/24 Jone Victor DO PCP - General Family Medicine 03/02/24 Genaro Mckeon MD [address] [facility] [address] [place] [address] Medical Oncologist/Ice Guard Inspector Hematology and Oncology 02/04/18 documented as of this encounter
--- OUTSIDE RECORDS SUMMARY | 2025-02-19 21:41 | XMS_ITS | Encounter Summary ---
Author Organization [facility] Care Team Providers Care Overlock Sleeve Setter Name Role Phone Ted Victor MD Primary Care Provider + [phone] Genaro Mckeon MD Unavailable +[phone] Jone Victor DO Primary Care Provider + Unknown, Notinfile Primary Care Provider Unavail able Terri Mchugh NP Primary Care Provider + [phone] Jone Victor DO Primary Care Provider + Encounter Details Date Type Department Care Team (Latest Contact Info) Description 12/30/2017 Orders Only [facility] CLINCONV Provider, MD Sue [address] [place] [address] Social History Tobacco Use Types Packs/Day Years Used Date Smoking Tobacco: Never Smokeless Tobacco: Never Alcohol Use Standard Drinks/Week Comments No 0 (1 standard drink = 0.6 oz pur e alcohol) Sex and Gender Information Value Date Recorded Sex Assigned at Not on file 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 Gender Identity Male 08/14/2017 2:17 PM CDT [...] on filedocumented in this encounter Care Teams Overlock Sleeve Setter Relationship Specialty Start Date End Date Ted Victor MD [address] [facility] [address] [place] [address] PCP - General 04/24/17 04/27/19 Jone Victor DO [address] [facility] [address] [place] [address] PCP - General 04/28/19 09/28/23 Unknown, Notinfile PCP - General 09/29/23 10/26/23 Terri Mchugh NP PCP - General Family Medicine 10/27/23 03/01/24 Jone Victor DO PCP - General Family Medicine 03/02/24 Genaro Mckeon MD [address] [facility] [address] [place] [address] Medical Oncologist/Compressor Assembler Hematology and Oncology 02/04/18 documented as of this encounter
[2025-02-19 21:57] LABS: Troponin I < 0.012 ng/mL (0.000-0.034)
[2025-02-19] MEDS: SODIUM CHLORIDE 0.9% IV 500 ML 999 ML IV CONT (22:21)
[2025-02-19 22:25] LABS: INR 1.2; Partial Thromboplastin Time 34.1 Seconds (22.3-36.8); Prothrombin Time 14.9 Seconds (11.1-14.7)
[2025-02-19 22:37] LABS: Influenza A QL RT-PCR Negative (Negative); Influenza B QL RT-PCR Negative (Negative); RSV RNA, RT-PCR Negative (Negative); SARS-CoV-2 RNA PCR Negative (Negative)
[2025-02-19 23:26] LABS: Add Urine Microscopic? YES; Appearance Urine Clear (Clear); Glucose Urine UA Negative (Negative); Leukocyte Esterase Ur 1+ LEU/UL (Negative); Nitrate Urine Positive (Negative); Non Pathogenic Casts 0-2; Specific Grav Ur 1.042 (1.001-1.035)
[2025-02-19] MEDS: cefTRIAXone 2 GM in SODIUM CHLORIDE 0.9% IV 100 ML 200 ML IVPB (23:56)
[2025-02-20 02:15] VITALS: BP 138/68; PULSE 74; RESP 18; O2SAT 100
== END 2025-02-20 02:16 | disposition home or self-care (01) ==
PROVIDERS: Emergency Medicine; Physician Assistant; Emergency Provider Emergency Medicine; PCP Family Medicine
DX: N39.0 Urinary tract infection, site not specified (principal); Z20.822 Contact with and (suspected) exposure to COVID-19; I10 Essential (primary) hypertension; N40.0 Benign prostatic hyperplasia without lower urinary tract symptoms; Z96.652 Presence of left artificial knee joint; Z79.899 Other long term (current) drug therapy; Z79.82 Long term (current) use of aspirin; I49.3 Ventricular premature depolarization
CPT/HCPCS: 36415; 70496; 70498; 71275; 80053; 81001; 83690; 84484; 85025; 85380; 85610; 85730; 86850; 86900; 86901; 87077; 87086; 87186; 87637; 93005; 96365; 99284; J0696; J7040; Q9967